=== PATIENT | female | born 1940 | race Caucasian/White ===

== ENCOUNTER 2023-10-03 09:22 | Emergency (ER) | payer MEDICARE, SELFPAY ==
[2023-10-03 09:25] VITALS: BP 129/72
--- NOTE | 2023-10-03 11:06 | ED.SKININJ ---
HPI-Injury
General
Chief Complaint: Eye Problems
Source: patient and spouse
Exam Limitations: none
Time Seen by Provider: 10/03/23 09:53
Nursing documentation reviewed up to this point in time: agreed with
Travel History
Have you had any contact with someone who has COVID-19?: No
Do you have any symptoms of coronavirus? Fever > 100 degrees, chills, cough, shortness of breath, sore throat, loss of taste or smell, muscle aches, or headache?: No
History of Present Illness-Injury
Initial Injury comments:
83 yo female washed her hair with NIX anti lice shampoo last night because her scalp has been so itchy, she got some of the shampoo in her right eye and it stung. Over the next few hours she and rinsed the eye out numerous times and she has
been rubbing the eye. It felt a little better after irrigating and she fell asleep. Woke up this a.m. with significant pain in the eye 'like something is in my eye.'
Past History
Past History
ED Past Medical History: Hypercholesterolemia and Other (PD, Lumbar stenosis, Herniated disc, Parkinson's)
ED Past Surgical History: Orthopedic (Back surgery)
Social History
Tobacco: Non-smoker
Alcohol: Occasional
Personal:
Living: with family
Employment: Retired
Review of Systems
Review of Systems
Allergies reviewed?: Yes
All Other Systems: ROS reviewed and negative except as documented in HPI and ROS
EENT: Reports other (right eye pain and FB sensation)
ABD/GI: Denies nausea
Neurological: Denies headache
Phy Exam
Physical Exam
Physical Exam:
PHYSICAL EXAMINATION:
General: no apparent distress, not acutely ill
Neuro: alert and oriented.
Psychiatric: well kept. interactive and cooperative
Musculoskeletal: Moves with ease
Skin: Warm, pink.
Eye Exam
Eye Exam: PERRL, EOMI, globe normal, visual acuity normal and visual abdullahi normal
Refraction?: No
Cornea Exam: abrasion: Right (moderate sized mid cornea)
Pupil and Lens Exam: round pupil: Bilateral (briskly reacts to light)
Type of Exam: simple and fluorescein
Course
Orders/Labs/Results
Orders:
Orders
10/03/23 09:54
Visual Acuity- Treatment ONCE
10/03/23 11:10
Ciprofloxacin HCl [Ciloxan 0.3% Ophthalmic Solution] See Dose Instructions OPHTH NOW STA
10/03/23 11:45
Fluorescein Sodium [Ful-Lindsay] 2 mg .ROUTE .STK-MED ONE
Tetracaine HCl [Tetracaine 0.5% Ophthalmic Solution] 1 drop .ROUTE .STK-MED ONE
Vital Signs
Initial and Last Documented VS:
Initial Vital Signs
Temp Pulse Resp BP Pulse Ox
98 F 78 16 129/72 98
10/03/23 09:25 10/03/23 09:25 10/03/23 09:25 10/03/23 09:25 10/03/23 09:25
Last Documented Vital Signs
Temp Pulse Resp BP Pulse Ox
98 F 78 16 129/72 98
10/03/23 09:25 10/03/23 09:25 10/03/23 09:25 10/03/23 09:25 10/03/23 09:25
MDM/Problems Addressed
Differential Diagnosis Includes:
chemical conjunctivitis, cornea abrasion
MDM/Problems Addressed:
83 yo female washed her hair with NIX anti lice shampoo last night because her scalp has been so itchy, she got some of the shampoo in her right eye and it stung. Over the next few hours she and rinsed the eye out numerous times and she has
been rubbing the eye. It felt a little better after irrigating and she fell asleep. Woke up this a.m. with significant pain in the eye 'like something is in my eye.'
Moderate sized right mid corneal abrasion. Good relief of pain with topical anesthetic. Correctly reads fingers from 5 feet after topical anesthetic.
She has her own eye doctor she will f/u with in 3 days after the holiday weekend
Cipro eye drops given here
Return symptoms reviewed.
*Critical Care Note
Total Time (30-74mins, 75-104mins- exclusive of procedures): Not Applicable
ED Attending Note
-
Portions of this chart may have been created with voice recognition software.� Occasional wrong word or��sound alike� substitutions may have occurred due to the inherent limitations of voice recognition software.
Discharge Plan
Departure
Patient Disposition: Home (Routine Discharge)
Date of Disposition: 10/03/23
Time of Disposition: 11:05
Patient with high blood pressure during this ER visit?: No
Condition: Good
Discharge Problem:
Corneal abrasion, right
Instructions: Corneal Abrasion (DC), How to Use Eye Drops
Prescriptions:
No Action
atorvastatin 20 MG tablet
20 mg PO HS
amantadine HCl 100 mg capsule
100 mg PO TID
meloxicam 7.5 mg tablet
7.5 mg PO DAILY
docusate sodium [Colace] 100 mg Capsule
100 mg PO DAILY
carbidopa-levodopa 25-100 mg tablet
2 tab PO QID@07,11,,23
carbidopa-levodopa 25-100 mg tablet
1 tab PO BID@0300,1500
Myrbetriq 25 mg tablet extended release 24 hr
25 mg PO DAILY
oxycodone-acetaminophen [Percocet] 5-325 mg tablet
1 tab PO Q4H PRN (Reason: moderate pain)
Patient Comments:
10/30/2022: last filled 10/26/22, 17 tabs for 2 days from [facility]
gabapentin 100 mg capsule
100 mg PO HS
lidocaine 4 % Adhesive Patch,Medicated
1 patch topical DAILY 30 Days Qty: 30 0RF
methylprednisolone 4 mg Tablet
12 mg PO ONCE 1 Days Qty: 3 0RF
Rx Instructions:
Take on 11/02/22
methylprednisolone 8 mg tablet
8 mg PO DAILY 1 Days Qty: 1 0RF
Rx Instructions:
Take on 11/03/22
methylprednisolone 4 mg tablet
4 mg PO DAILY 1 Days Qty: 1 0RF
Rx Instructions:
Take on 11/04/22
Referrals:
Lauro Nunez Eye doctor [Other] - Follow up in 2-3 days
Cmaacho Hwang MD [Family Provider] -
Activity Restrictions/Additional Instructions:
As we discussed, use the Ciprofloxacin eye drops as follows: 1-2 drop in lower eyelid sac right eye 4 times a day for 5 days
See your eye doctor on Thursday.
Return here immediately for loss of vision, worsening eye pain, redness or swelling of skin around the eye, fever, or feeling worse in any way.
Tylenol 1000 mg 3 times a day as needed for pain
Rest in darkened room, sunglasses may help, cold compress 10 minutes off and on may help
Interventions
Interventions:
*Risk Screen - Suicide Last Done: 10/03/23 09:25
*General Assessment Last Done: 10/03/23 09:25
*Neglect/Abuse Screening Last Done: 10/03/23 09:25
ED- Fall Risk Assessment Last Done: 10/03/23 10:09
*ED COVID-19 Vaccine History Last Done: 10/03/23 10:09
*Nursing Disposition Last Done: 10/03/23 11:52
Discharge Date and Time
Discharge Date/Time: 10/03/23 11:53
Print Language: MONGOLIAN
[2023-10-03] MEDS: CILOXAN 0.3% OPHTHALMIC SOLUTION 2 DROP OPHTH (11:52)
== END 2023-10-03 11:53 | disposition home or self-care (01) ==
LOC: EMR 09:22
PROVIDERS: EMERGENCY PHYSICIAN Student in an Organized Health Care Education/Training Program; FAMILY PHYSICIAN Internal Medicine
DX: S05.01XA Injury of conjunctiva and corneal abrasion without foreign body, right eye, initial encounter (principal); X58.XXXA Exposure to other specified factors, initial encounter; E78.00 Pure hypercholesterolemia, unspecified; M48.061 Spinal stenosis, lumbar region without neurogenic claudication; G20.A1 Parkinson's disease without dyskinesia, without mention of fluctuations
CPT/HCPCS: 99282

== ENCOUNTER 2023-12-27 18:46 | Emergency (ER) | payer MEDICARE, SELFPAY ==
[2023-12-27 18:51] VITALS: BP 153/86
--- NOTE | 2023-12-27 20:24 | ED.SKININJ ---
HPI-Injury
General
Chief Complaint: Skin Problem
Source: patient
Exam Limitations: none
Time Seen by Provider: 12/27/23 19:34
Nursing documentation reviewed up to this point in time: agreed with
History of Present Illness-Injury
Is this injury a work related problem?: No
Is pt an associate of [facility]?: No
Initial Injury comments:
Accidentally cut leg on chair. Sutatined lac to right lower leg. Injury occurred approx 3 hours ago. Brought to ED by Daughter for eval.
Past History
Past History
ED Past Medical History: Hypercholesterolemia and Other (PD, Lumbar stenosis, Herniated disc, Parkinson's)
ED Past Surgical History: Orthopedic (Back surgery)
Social History
Tobacco: Non-smoker
Alcohol: Occasional
Personal:
Living: with family
Employment: Retired
Review of Systems
Review of Systems
Allergies reviewed?: Yes
All Other Systems: ROS reviewed and negative except as documented in HPI and ROS
Constitutional: Reports no symptoms
Musculoskeletal: Reports no symptoms
Skin: Reports other (Lacerartion to riht lower leg)
Neurological: Reports no symptoms
Psychiatric: Reports no symptoms
Skin Exam
Laceration
Right Lower Leg:
Length in cm: 3
Orientation: vertical
Type of Laceration: simple
Any active bleeding?: no active bleeding
Normal distal neurovascular exam: Yes
Range of motion: full
Phy Exam
General Physical Exam
General Presentation: well appearing and no apparent distress
General age: appears stated age
General Skin: warm and dry
General Habitus: normal
General Mental: alert
General Hydration: appears well hydrated
Musculoskeletal Exam
Musculoskeletal Exam: full ROM and neuro vasc intact
Skin Exam
Skin Exam: normal color, warm/dry and no rash
Psychiatric Exam
Psychiatric Exam: normal mood/affect
Course
Orders/Labs/Results
Orders:
Orders
12/27/23 20:20
Doxycycline [Vibramycin] 100 mg PO NOW STA
Vital Signs
Initial and Last Documented VS:
Initial Vital Signs
Temp Pulse Resp BP Pulse Ox
98.2 F 76 18 153/86 95
12/27/23 18:51 12/27/23 18:51 12/27/23 18:51 12/27/23 18:51 12/27/23 18:51
Last Documented Vital Signs
Temp Pulse Resp BP Pulse Ox
98.2 F 76 18 153/86 95
12/27/23 18:51 12/27/23 18:51 12/27/23 18:51 12/27/23 18:51 12/27/23 18:51
Procedures
Laceration Closure
Right Lower Leg:
Status of Wound: clean
Preparation: cleaned with saline and cleaned with Betadine
Anesthesia: 1% Lidocaine with epi
Revision/Debridement: routine- no revision and irrigate-direct pressure
Wound exploration: explored to base- no FB and no tendon involvement
Type of Closure: single layer closure
Skin Closure Material: 4-0 prolene
*Critical Care Note
Total Time (30-74mins, 75-104mins- exclusive of procedures): Not Applicable
ED Attending Note
-
Portions of this chart may have been created with voice recognition software.� Occasional wrong word or��sound alike� substitutions may have occurred due to the inherent limitations of voice recognition software.
Discharge Plan
Departure
Patient Disposition: Home (Routine Discharge)
Date of Disposition: 12/27/23
Time of Disposition: 20:21
Patient with high blood pressure during this ER visit?: No
Condition: Good
Covid-19: Not Applicable
Discharge Problem:
Laceration of leg
Instructions: Laceration Repair With Stitches ED, Laceration
Prescriptions:
New
doxycycline hyclate 100 mg capsule
100 mg PO BID Qty: 14 0RF
No Action
atorvastatin 20 MG tablet
20 mg PO HS
amantadine HCl 100 mg capsule
100 mg PO TID
meloxicam 7.5 mg tablet
7.5 mg PO DAILY
docusate sodium [Colace] 100 mg Capsule
100 mg PO DAILY
carbidopa-levodopa 25-100 mg tablet
2 tab PO QID@07,,,
carbidopa-levodopa 25-100 mg tablet
1 tab PO BID@0300,1500
Myrbetriq 25 mg tablet extended release 24 hr
25 mg PO DAILY
oxycodone-acetaminophen [Percocet] 5-325 mg tablet
1 tab PO Q4H PRN (Reason: moderate pain)
Patient Comments:
10/30/2022: last filled 10/26/22, 17 tabs for 2 days from [facility]
gabapentin 100 mg capsule
100 mg PO HS
lidocaine 4 % Adhesive Patch,Medicated
1 patch topical DAILY 30 Days Qty: 30 0RF
methylprednisolone 4 mg Tablet
12 mg PO ONCE 1 Days Qty: 3 0RF
Rx Instructions:
Take on 11/02/22
methylprednisolone 8 mg tablet
8 mg PO DAILY 1 Days Qty: 1 0RF
Rx Instructions:
Take on 11/03/22
methylprednisolone 4 mg tablet
4 mg PO DAILY 1 Days Qty: 1 0RF
Rx Instructions:
Take on 11/04/22
Activity Restrictions/Additional Instructions:
Sutures can be removed in 7-10 days by your family doctor.
Discharge Date and Time
Print Language: TURKMEN
[2023-12-27] MEDS: VIBRAMYCIN 100 MG PO (20:34)
[2023-12-27] MEDS: ADACEL 0.5 ML IM (20:36)
[2023-12-27 20:55] VITALS: BP 144/73
== END 2023-12-27 20:45 | disposition home or self-care (01) ==
LOC: EMR 18:46
PROVIDERS: EMERGENCY PHYSICIAN Emergency Medicine
DX: S81.811A Laceration without foreign body, right lower leg, initial encounter (principal); W07.XXXA Fall from chair, initial encounter; Z23 Encounter for immunization; E78.00 Pure hypercholesterolemia, unspecified; G20.A1 Parkinson's disease without dyskinesia, without mention of fluctuations; M48.061 Spinal stenosis, lumbar region without neurogenic claudication; K21.9 Gastro-esophageal reflux disease without esophagitis; M19.90 Unspecified osteoarthritis, unspecified site; Z96.651 Presence of right artificial knee joint; Z85.3 Personal history of malignant neoplasm of breast
CPT/HCPCS: 99283; 12002; 90471; 90715

== ENCOUNTER 2024-05-19 10:17 | Inpatient (IN) | payer MEDICARE, SELFPAY ==
[2024-05-19] VITALS (10 sets, daily range): BP systolic 96–135; BP diastolic 46–84; BMI 27.9; BMI 26.6
--- NOTE | 2024-05-19 06:29 | ED.GENMED ---
History of Present Illness
<JUANITA Mcdaniels - Last Filed: 05/19/24 13:28>
General
Chief Complaint: Back Pain
Source: patient
Exam Limitations: other (due to 10 pain)
Time Seen by Provider: 05/19/24 05:54
History of Present Illness
History of Present Illness:
This is a 84 y/o female with PMH of Parkinson's and chronic back pain who presents to the ED with CC of worsening back pain x 1 day. She describes the pain starting about a week ago when moving into [facility], but has gotten
much worse over the last day. She admits to some pain relief with Oxycodone over the last week, but came to the ED as it no longer provides her relief. The pain is worsened with movement and R hip flexion. She is extremely restless due to 10/10
shooting pain. Pain radiates across back and down to R leg when moving. Admits to bowel movement just prior to coming to the ED. Denies any recent weight loss/gain, fever/chills, nausea, vomiting, headache, dizziness, bowel or bladder incontinence,
diarrhea, cough, palpitations, chest pain, dyspnea, vision changes, paresthesias and any new skin rash.
Past History
<JUANITA Mcdaniels - Last Filed: 05/19/24 13:28>
Past History
ED Past Medical History: Hypercholesterolemia, Other (PD, Lumbar stenosis, Herniated disc, Parkinson's) and Other
ED Past Surgical History: Orthopedic (Back surgery)
Social History
Tobacco: Non-smoker
Alcohol: None
Drug: None
Personal:
Living: with family
Employment: Retired
Review of Systems
<JUANITA Mcdaniels - Last Filed: 05/19/24 13:28>
Review of Systems
Constitutional: Reports no symptoms
EENT: Reports no symptoms
Respiratory: Reports no symptoms
Cardiac: Reports no symptoms
ABD/GI: Reports no symptoms
: Reports no symptoms
Musculoskeletal: Reports back pain
Skin: Reports no symptoms
Neurological: Reports no symptoms
Endocrine: Reports no symptoms
Hematologic/Lymphatic: Reports no symptoms
Psychiatric: Reports no symptoms
Phy Exam
<Lola Culp [facility] - Last Filed: 05/19/24 13:28>
General Physical Exam
General Presentation: moderate distress
General age: appears stated age
General Skin: warm and dry
General Habitus: normal
General Mental: alert
Eye Exam
Eye Exam: PERRL, EOMI, conjunctiva normal and visual abdullahi normal
Cardiovascular Exam
Cardiovascular Exam: regular rate/rhythm, no edema, no gallop, no JVD and normal peripheral pulses
Pulmonary Exam
Pulmonary Exam: lungs clear, no respiratory distress, no rales, chest non tender, no crackles, no rhonchi, no wheezing and no cough
Gastrointestinal Exam
Gastrointestinal Exam: normal bowel sounds, non tender, soft, no pulsatile mass and non distended
Neurological Exam
Neurological Exam: alert, oriented x3, CN II-XII intact, no sensory deficits and speech normal
Musculoskeletal Exam
Musculoskeletal Exam: back pain, no edema, neuro vasc intact and other
Skin Exam
Skin Exam: normal color, warm/dry and no rash
Course
<Lola Culp [facility] - Last Filed: 05/19/24 13:28>
Orders/Labs/Results
Orders:
Orders
05/19/24 Breakfast
Regular
At Your Request: Full Participation
05/19/24 06:30
CT Chest/abd/pelvis Angio W/wo Urgent
Comment:
Reason For Exam: Nontraumatic severe back pain
Cardiac Monitoring- Treatment ONCE
05/19/24 06:32
Electrocardiogram (*1) Stat
Reason for Study: Abdominal Pain
EKG- Treatment ONCE
05/19/24 06:33
Acetaminophen 1000MG/100Ml [Ofirmev] 1,000 mg in 100 ml IV ONCE
Acetaminophen IV Indication:: ED Narcotic Naive Pt-ONCE
HYDROmorphone [Dilaudid] 0.25 mg IV NOW STA
05/19/24 06:47
CRP [C-Reactive Protein] Urgent
Complete Blood Count/With Diff Urgent
Comprehensive Metabolic Panel Urgent
ESR [Erythrocyte Sed Rate] Urgent
Lipase Urgent
Troponin I Urgent
05/19/24 09:37
Spleen US [US Spleen] Routine
Comment:
Reason For Exam: eval abnormal CT
05/19/24 09:47
Admit/Transfer Patient As Directed
Co-Sign Provider:
Level of Care: Inpatient admission
Assign to:: Medical/Surgical
Physician / Group: Sammy Pereira
Diagnosis: T6 compression fracture inctractable back pain
Reason for Hospitalization: T6 compression fracture intractable back pain
Expected length of stay greater than two midnights?: Yes
ELOS- Estimated Length of Stay in days: 2
I certify the patient meets the requirements for IP care: Yes
PRN Pain Medication Management As Directed
May give lesser potent ordered pain med per pt: Yes
preference::
Protocol:: Medication orders for pain may be administered in a
manner that supports deferring to patient preference
when the pt is:
- Requesting an ordered lesser potent pain medication.
Least to most potent pain medications are defined
as: acetaminophen < NSAID < tramadol < opioids
(morphine, oxycodone, hydromorphone).
- Requesting a lesser dose of the same medication IF
ORDERED.
- Requesting a less intrusive route of administration
if both routes are prescribed by the provider (PO <
IV).
05/19/24 09:54
Code Status As Directed
Resuscitation Status: Full Code
05/19/24 11:29
Famotidine [Pepcid] 20 mg PO BID
HYDROmorphone [Dilaudid] 0.25 mg IV Q4HPRN PRN
Ketorolac [Toradol] 15 mg IV Q6HPRN PRN
05/19/24 11:29
LAWALL EQUIPMENT REQUEST Routine
Equipment request: Back Brace
Activity As Directed
Activity Level: With Assistance
Pneumatic Compression Sleeves As Directed
Type: Knee high
Vital Signs As Directed
Frequency: Per unit guidelines
DX Deep Vein Thrombosis Video Routine
05/19/24 12:00
Acetaminophen [Tylenol] 650 mg PO Q4HWA
pimavanserin 34 mg PO NOON
05/19/24 12:19
Carbidopa/Levodopa [Sinemet 25-100] 2 tablet PO QID@0700,1100,1900,2300
05/19/24 15:00
Carbidopa/Levodopa [Sinemet 25-100] 1 tablet PO BID@0300,1500
05/19/24 16:00
Amantadine [Symmetrel] 100 mg PO TID
Gabapentin [Neurontin] 100 mg PO TID
05/19/24 22:00
Atorvastatin [Lipitor] 20 mg PO HS
05/20/24 06:00
Basic Metabolic Panel IN AM
Complete Blood Count/No Diff IN AM
Magnesium IN AM
05/20/24 08:00
Calcium Carbonate/Vitamin D3 [Oscal 500 + D] 1,000 mg PO DAILY
Docusate Sodium [Colace] 100 mg PO DAILY
Lidocaine [Lidocaine 4% Patch] 1 patch TOPICAL DAILY
Apply Lidocaine patch(s) to:: lower back
Multivitamin [Theragran] 1 tablet PO DAILY
Polyethylene Glycol Powder [Miralax] 17 grams PO DAILY
05/21/24 06:00
Basic Metabolic Panel IN AM
Complete Blood Count/No Diff IN AM
Magnesium IN AM
05/22/24 06:00
Basic Metabolic Panel IN AM
Complete Blood Count/No Diff IN AM
Magnesium IN AM
05/23/24 06:00
Basic Metabolic Panel IN AM
Complete Blood Count/No Diff IN AM
Magnesium IN AM
05/24/24 06:00
Basic Metabolic Panel IN AM
Complete Blood Count/No Diff IN AM
Magnesium IN AM
05/25/24 06:00
Basic Metabolic Panel IN AM
Complete Blood Count/No Diff IN AM
Magnesium IN AM
05/26/24 06:00
Basic Metabolic Panel IN AM
Complete Blood Count/No Diff IN AM
Magnesium IN AM
Abnormal Lab Results
05/19/24
06:47
RBC 3.76 L 10^6/uL
(4.20-5.40)
MCH 33.0 H pg
(27.0-31.0)
MPV 11.4 H fL
(7.4-10.4)
Abs Immat Gran (auto) 0.1 H 10^3/uL
(0-0.05)
Absolute Monos (auto) 0.8 H 10^3/uL
(0.1-0.6)
Immature Gran % 1.4 H %
(0-0.5)
Monocytes % 12.2 H %
(1.7-9.3)
ESR 22 H mm/hour
(0-20)
Glucose 66 L mg/dl
(70-99)
Total Bilirubin 1.6 H mg/dl
(0.2-1.3)
C-Reactive Protein 11.20 H mg/L
(0.0-10.00)
05/19/24 06:47
05/19/24 06:47
Vital Signs
Initial and Last Documented VS:
Initial Vital Signs
Temp Pulse Resp BP Pulse Ox
97.5 F 76 19 103/63 95
05/19/24 04:56 05/19/24 04:56 05/19/24 04:56 05/19/24 04:56 05/19/24 04:56
Last Documented Vital Signs
Temp Pulse Resp BP Pulse Ox
97.7 F 72 18 120/82 100
05/19/24 11:37 05/19/24 11:37 05/19/24 11:37 05/19/24 11:37 05/19/24 11:37
<José Miguel Bailey MD - Last Filed: 05/19/24 07:59>
Orders/Labs/Results
Orders:
Orders
05/19/24 Breakfast
Regular
At Your Request: Full Participation
05/19/24 06:30
CT Chest/abd/pelvis Angio W/wo Urgent
Comment:
Reason For Exam: Nontraumatic severe back pain
Cardiac Monitoring- Treatment ONCE
05/19/24 06:32
Electrocardiogram (*1) Stat
Reason for Study: Abdominal Pain
EKG- Treatment ONCE
05/19/24 06:33
Acetaminophen 1000MG/100Ml [Ofirmev] 1,000 mg in 100 ml IV ONCE
Acetaminophen IV Indication:: ED Narcotic Naive Pt-ONCE
HYDROmorphone [Dilaudid] 0.25 mg IV NOW STA
05/19/24 06:47
CRP [C-Reactive Protein] Urgent
Complete Blood Count/With Diff Urgent
Comprehensive Metabolic Panel Urgent
ESR [Erythrocyte Sed Rate] Urgent
Lipase Urgent
Troponin I Urgent
05/19/24 09:37
Spleen US [US Spleen] Routine
Comment:
Reason For Exam: eval abnormal CT
05/19/24 09:47
Admit/Transfer Patient As Directed
Co-Sign Provider:
Level of Care: Inpatient admission
Assign to:: Medical/Surgical
Physician / Group: Sammy Pereira
Diagnosis: T6 compression fracture inctractable back pain
Reason for Hospitalization: T6 compression fracture intractable back pain
Expected length of stay greater than two midnights?: Yes
ELOS- Estimated Length of Stay in days: 2
I certify the patient meets the requirements for IP care: Yes
PRN Pain Medication Management As Directed
May give lesser potent ordered pain med per pt: Yes
preference::
Protocol:: Medication orders for pain may be administered in a
manner that supports deferring to patient preference
when the pt is:
- Requesting an ordered lesser potent pain medication.
Least to most potent pain medications are defined
as: acetaminophen < NSAID < tramadol < opioids
(morphine, oxycodone, hydromorphone).
- Requesting a lesser dose of the same medication IF
ORDERED.
- Requesting a less intrusive route of administration
if both routes are prescribed by the provider (PO <
IV).
05/19/24 09:54
Code Status As Directed
Resuscitation Status: Full Code
05/19/24 11:29
Famotidine [Pepcid] 20 mg PO BID
HYDROmorphone [Dilaudid] 0.25 mg IV Q4HPRN PRN
Ketorolac [Toradol] 15 mg IV Q6HPRN PRN
05/19/24 11:29
LAWALL EQUIPMENT REQUEST Routine
Equipment request: Back Brace
Activity As Directed
Activity Level: With Assistance
Pneumatic Compression Sleeves As Directed
Type: Knee high
Vital Signs As Directed
Frequency: Per unit guidelines
DX Deep Vein Thrombosis Video Routine
05/19/24 12:00
Acetaminophen [Tylenol] 650 mg PO Q4HWA
pimavanserin 34 mg PO NOON
05/19/24 12:19
Carbidopa/Levodopa [Sinemet 25-100] 2 tablet PO QID@0700,1100,1900,2300
05/19/24 15:00
Carbidopa/Levodopa [Sinemet 25-100] 1 tablet PO BID@0300,1500
05/19/24 16:00
Amantadine [Symmetrel] 100 mg PO TID
Gabapentin [Neurontin] 100 mg PO TID
05/19/24 22:00
Atorvastatin [Lipitor] 20 mg PO HS
05/20/24 06:00
Basic Metabolic Panel IN AM
Complete Blood Count/No Diff IN AM
Magnesium IN AM
05/20/24 08:00
Calcium Carbonate/Vitamin D3 [Oscal 500 + D] 1,000 mg PO DAILY
Docusate Sodium [Colace] 100 mg PO DAILY
Lidocaine [Lidocaine 4% Patch] 1 patch TOPICAL DAILY
Apply Lidocaine patch(s) to:: lower back
Multivitamin [Theragran] 1 tablet PO DAILY
Polyethylene Glycol Powder [Miralax] 17 grams PO DAILY
05/21/24 06:00
Basic Metabolic Panel IN AM
Complete Blood Count/No Diff IN AM
Magnesium IN AM
05/22/24 06:00
Basic Metabolic Panel IN AM
Complete Blood Count/No Diff IN AM
Magnesium IN AM
05/23/24 06:00
Basic Metabolic Panel IN AM
Complete Blood Count/No Diff IN AM
Magnesium IN AM
05/24/24 06:00
Basic Metabolic Panel IN AM
Complete Blood Count/No Diff IN AM
Magnesium IN AM
05/25/24 06:00
Basic Metabolic Panel IN AM
Complete Blood Count/No Diff IN AM
Magnesium IN AM
05/26/24 06:00
Basic Metabolic Panel IN AM
Complete Blood Count/No Diff IN AM
Magnesium IN AM
Abnormal Lab Results
05/19/24
06:47
RBC 3.76 L 10^6/uL
(4.20-5.40)
MCH 33.0 H pg
(27.0-31.0)
MPV 11.4 H fL
(7.4-10.4)
Abs Immat Gran (auto) 0.1 H 10^3/uL
(0-0.05)
Absolute Monos (auto) 0.8 H 10^3/uL
(0.1-0.6)
Immature Gran % 1.4 H %
(0-0.5)
Monocytes % 12.2 H %
(1.7-9.3)
ESR 22 H mm/hour
(0-20)
Glucose 66 L mg/dl
(70-99)
Total Bilirubin 1.6 H mg/dl
(0.2-1.3)
C-Reactive Protein 11.20 H mg/L
(0.0-10.00)
05/19/24 06:47
05/19/24 06:47
Vital Signs
Initial and Last Documented VS:
Initial Vital Signs
Temp Pulse Resp BP Pulse Ox
97.5 F 76 19 103/63 95
05/19/24 04:56 05/19/24 04:56 05/19/24 04:56 05/19/24 04:56 05/19/24 04:56
Last Documented Vital Signs
Temp Pulse Resp BP Pulse Ox
97.7 F 72 18 120/82 100
05/19/24 11:37 05/19/24 11:37 05/19/24 11:37 05/19/24 11:37 05/19/24 11:37
<JUANITA Mcdaniels - Last Filed: 05/19/24 13:28>
MDM/Problems Addressed
Differential Diagnosis Includes:
Pt presented with intractable back pain. She was in 10/10 pain and restless during exam. Pain out of proportion for MSK, therefore vascular imaging was necessary to rule out any emergent vascular conditions. Neuropathic emergent causes have been
ruled out along with vascular and infectious causes. CTA reveals no evidence of aortic dissection or hematoma. WBC, ESR, CRP are consistent with likely cause of pain which is T5 vertebral body compression fracture per x-ray done at [facility]. Pt
requires admission due to severity of pain, which needs to managed prior to discharge.
<JUANITA Mcdaniels - Last Filed: 05/19/24 13:28>
*Radiology
Radiology exam reviewed: radiology read reviewed
*Pulse Oximetry
Patient hypoxic: no
*EKG
Interpreted by ED Provider?: Yes
Interpretation: abnormal
Comparison EKG: no changes
Heart Rate: 72
Rate: normal
Rhythm: sinus
[place]: normal axis
Interval: normal interval
QRS Pattern: poor R-wave progression
Ischemia: no ischemia
*Folded Towel Machine Operator Interpretation
Rate: normal
Interpretation: normal
Heart Rate: 70
Rhythm: sinus
*Critical Care Note
Total Time (30-74mins, 75-104mins- exclusive of procedures): Not Applicable
Data Reviewed
Review of Other/Old Records Reveals: Labs, Records, Radiology Studies and Testing
ED Attending Note
<JUANITA Mcdaniels - Last Filed: 05/19/24 13:28>
-
Portions of this chart may have been created with voice recognition software.� Occasional wrong word or��sound alike� substitutions may have occurred due to the inherent limitations of voice recognition software.
<José Miguel Bailey MD - Last Filed: 05/19/24 07:59>
ED Attending Note
Patient seen and examined by attending physician: Yes
I performed the substantive portion of visit, reviewed & personally made and approve the management plan that is documented in note by myself or SUE.: Yes
ED Attending Note:
84-year-old female complaining of severe back pain. Nontraumatic. Progressive over days. Does have a history of chronic back issues. Pain is positional in nature. No shortness of breath abdominal pain no distal numbness tingling or weakness.
Patient is on chronic pain management for her back issues but does not take it regularly. Pain is severe and intractable.
GENERAL: Alert and oriented. Nontoxic but appears very uncomfortable. Somewhat writhing in pain.
EYE: Orbits normal.
NECK: Supple, no significant adenopathy.
ENT: Pharynx without erythema
CARDIAC: Regular rate and rhythm without any obvious murmurs.
LUNGS: Clear breath sounds,normal
ABDOMEN: Soft, without focal tenderness or distention
NEUROLOGICAL: Alert and oriented , grossly non-focal. Good distal pulses and color
SKIN: Warm and dry, no rash or lesion, no discoloration, skin intact.
MUSCULOSKELETAL: No edema,no deformity.Good color. Points to the mid upper thoracic area no point tenderness. No crepitus. No abrasion.
PSYCH: Normal and appropriate interaction.
Previous labs radiologic testing reviewed. Medical decision making. Nontraumatic severe mid back pain. Questionable T5 fracture based on outpatient x-rays. However patient's behavior clinically or concerning for possible dissection and vascular
issue. Highly doubt cardiac issue. Doubt infectious issue as she has no fever chills or acute neurosurgical symptoms. Nothing to support cauda equina syndrome. Labs CT angio pending. Pain management. Likely will require admission.
Discharge Plan
Departure
Patient Disposition: Admit
Date of Disposition: 05/19/24
Time of Disposition: 09:11
Admit to: Med/Surg
Presentation/result/management discussed w/ accepting MD/DO: Hospitalist
Discharge Problem:
Intractable low back pain, T6 compression fracture
Interventions
Interventions:
*Risk Screen - Suicide Last Done: 05/19/24 04:56
*General Assessment Last Done: 05/19/24 04:56
*Neglect/Abuse Screening Last Done: 05/19/24 04:56
ED- Fall Risk Assessment Last Done: 05/19/24 07:43
*ED COVID-19 Vaccine History Last Done: 05/19/24 04:56
*Nursing Disposition Last Done: 05/19/24 11:30
ED-Musculoskeletal Assessment Last Done: 05/19/24 07:43
Discharge Date and Time
Discharge Date/Time: 05/19/24 11:31
[2024-05-19] MEDS: OFIRMEV 100 IV (06:50)
[2024-05-19] MEDS: DILAUDID 0.25 MG IV ×2 (06:50→16:36)
[2024-05-19 07:11] LABS: % Basophils 0.8 % (0-2); % Eosinophils 5.2 % (0-6); % Immature Granulocytes 1.4 % (0-0.5); % Monocytes 12.2 % (1.7-9.3); % Neutrophils 58.4 % (42.2-75.2); Absolute Basophils 0.1 10^3/uL (0-0.2); Absolute Eosinophils 0.3 10^3/uL (0-0.7); Absolute Immature Granulocytes 0.1 10^3/uL (0-0.05); Absolute Lymphocytes 1.4 10^3/uL (1.2-3.4); Absolute Monocytes 0.8 10^3/uL (0.1-0.6); Absolute Neutrophils 3.8 10^3/uL (1.4-6.5); Hemoglobin 12.4 g/dL (12.0-16.0); Mean Corp Hgb Conc. 33.5 g/dL (33.0-37.0); Mean Corpuscular Volume 98.4 fL (81.0-99.0); Mean Platelet Volume 11.4 fL (7.4-10.4); Nucleated Red Blood Cells % 0 %; Platelet Count 187 10^3/uL (130-400); Red Blood Cell Count 3.76 10^6/uL (4.20-5.40); Red Cell Dist. Width 13.5 % (11.5-14.5); White Blood Cell Count 6.6 10^3/uL (4.8-10.8)
[2024-05-19 07:29] LABS: ALT (SGPT) < 10 U/L (0-35); AST (SGOT) 32 U/L (14-36); Alkaline Phosphatase 118 U/L (38-126); Blood Urea Nitrogen 17 mg/dl (7-17); Calcium 8.9 mg/dl (8.4-10.2); Carbon Dioxide 28 mmol/L (22-30); Chloride 101 mmol/L (98-107); Estimated Creatinine Clearance 62 ml/min; Glucose 66 mg/dl (70-99); Lipase 120 U/L (23-300); Potassium 3.9 mmol/L (3.5-5.1); Sodium 139 mmol/L (135-145); Total Bilirubin 1.6 mg/dl (0.2-1.3); Total Protein 6.6 g/dl (6.3-8.2); eGFR > 60.00
[2024-05-19 07:37] LABS: Troponin I < 0.012 ng/ml
[2024-05-19 08:44] LABS: Erythrocyte Sed Rate 22 mm/hour (0-20)
--- NOTE | 2024-05-19 09:31 | HPS.HSE ---
Family Physician
-
Family Physician: NOT KNOW UNKNOWN - PT DOES
Chief Complaint
-
Back pain
History of Present Illness
84 female Parkinson Hyperlipidemia chronic constipation back pain from [facility] presents with progressive back pain [address] positive for T6 compression fracture indeterminate age. Vital signs otherwise stable. Labs
unremarkable. Pain relief achieved in ER with IV Tylenol and low-dose Dilaudid. Denies history of fall trauma lightheadedness dizziness fevers chills nausea vomiting diarrhea constipation urine incontinence retention.
Medical History
Past Medical History
Past Medical History: Reports Other (As above)
Past Surgical History: Reports Other (as above)
Social History
Tobacco: Non-smoker
Alcohol: Occasional
Drug: None
Living: Assisted Living
Family History
Family History: Not pertinent (reviewed)
Allergies / Home Medications
Allergies reflects when Allergies were last updated in [facility].
Home Medications with original date entered in [facility]
Allergy/Medication List:
Allergies
Allergy/AdvReac Type Severity Reaction Status Date / Time
naproxen Allergy Unknown Verified 05/19/24 04:56
Penicillins Allergy Swelling Verified 12/27/23 18:55
tramadol Allergy Nausea / Verified 12/27/23 18:55
Vomiting
zonisamide Allergy Unknown Verified 05/19/24 04:56
Home Medications
atorvastatin 20 mg tablet 20 mg PO HS High Cholesterol 01/04/13
amantadine HCl 100 mg capsule 100 mg PO TID Neurological Condition 10/30/22
docusate sodium 100 mg capsule (Colace) 100 mg PO DAILY Constipation 10/30/22
gabapentin 100 mg capsule 100 mg PO TID Neurological Condition 10/30/22
acetaminophen 325 mg tablet (Tylenol) 650 mg PO [id number] PRN mild pain 05/19/24
calcium 500 mg (as carbonate)-vit D3 10 mcg (400 unit) chewable tablet (Calcium 500 + D) 2 tab PO DAILY 05/19/24
carbidopa 25 mg-levodopa 100 mg tablet (Sinemet) 1 tab PO BID 05/19/24
carbidopa 25 mg-levodopa 100 mg tablet (Sinemet) 1 tab PO QID 05/19/24
famotidine 20 mg tablet (Pepcid) 20 mg PO DAILYPRN PRN gerd 05/19/24
ibuprofen 600 mg tablet 600 mg PO TID 05/19/24
lidocaine 4 % topical patch 1 patch topical DAILY lowrr back 05/19/24
oxycodone 5 mg tablet 5 mg PO BIDPRN PRN severe pain 05/19/24
pimavanserin 34 mg capsule 34 mg PO NOON 05/19/24
polyethylene glycol 3350 17 gram oral powder packet (Miralax) 17 g PO DAILY 05/19/24
therapeutic multivitamin 1 tab PO DAILY 05/19/24
Review of Systems
-
A 12 point ROS was completed and negative except as noted: Yes
Constitutional: Reports Other (as below)
Physical Exam
Vital Signs
Vital Signs
Temp Pulse Resp BP Pulse Ox
97.5 F 64 19 112/49 95
05/19/24 04:56 05/19/24 09:00 05/19/24 09:00 05/19/24 09:00 05/19/24 07:15
Physical Exam
General: Other (as below)
Laboratory Results
-
05/19/24 06:47
05/19/24 06:47
Laboratory Results
Total Bilirubin 1.6 mg/dl (0.2-1.3) H 05/19/24 06:47
AST 32 U/L (14-36) 05/19/24 06:47
ALT < 10 U/L (0-35) 05/19/24 06:47
Alkaline Phosphatase 118 U/L (38-126) 05/19/24 06:47
Troponin I < 0.012 ng/ml 05/19/24 06:47
Lipase 120 U/L (23-300) 05/19/24 06:47
Impression/Plan
-
ROS
General: Denies fever chills night sweats unexpected weight loss
Neuro: Denies seizure shaking loss of consciousness dizziness vertigo
Psych: denies depression hallucinations confusion manic episodes
Endocrine: Denies polyuria polydipsia polyphagia heat/cold intolerance
HEENT: Denies blindness visual disturbances epistaxis
Pulmonary: denies coughing hemoptysis sneezing sob dyspnea on exertion
Cardiovascular: denies chest pain palpitations leg swelling
Hematology: denies signs symptoms of anemia easy bruising/bleeding
Gastrointestinal: denies nausea vomiting diarrhea constipation hematemesis hematochezia melena
Genito-Urinary: denies retention incontinence dysuria
Musculoskeletal: Reports back pain worse with right hip flexion shooting radiating down to her leg with movement
Dermatology: denies rash laceration bruising
Physical Exam
General: No pallor, cyanosis, or jaundice.
HEENT: Throat clear. PERRLA Normocephalic atraumatic
NECK: Supple. No JVD Carotid Bruits
RESPIRATORY: Lungs clear to auscultation. No crackles wheezes stridor
CVS: S1, S2 normal. RRR. No murmur, rub or gallop.
ABDOMEN: Soft, non-tender. No distension. BS+/normal.
EXTREMITIES: No peripheral cyanosis or edema.
LINK TRAINER MECHANIC: AOx3
IMPRESSION:
84 female Parkinson Hyperlipidemia chronic constipation back pain from [facility] presents with progressive back pain [address] positive for T6 compression fracture indeterminate age. Vital signs otherwise stable. Labs
unremarkable. Pain relief achieved in ER with IV Tylenol and low-dose Dilaudid. Denies history of fall trauma lightheadedness dizziness fevers chills nausea vomiting diarrhea constipation urine incontinence retention.
PLAN:
#Acute on Chronic Back Pain Flare
#Possible T6 compression fracture contributing age indeterminate
#Right sided sciatica
Med surg admit
pain control prn Toradol mod severe pain, prn Dilaudid severe breakthrough pain
Tylenol Q4HWA
PT/OT eval
cont home lidocaine patch, gabapentin
#Parkinson
cont home Sinemet, amantadine
#Chronic Constipation
cont home laxatives
#Abnormal CT imaging Spleen
follow up Spleen US
dvt ppx SCD
gi ppx Home pepcid increased to BID for ppx while on toradol prn
Full Code as per patient
Discussed with patient and patient's daughter Lida
I spent a total of 77 minutes with the patient or on the floor. More than 50% of this time involved counseling and coordination of care.
--- NOTE | 2024-05-19 11:35 | PTCARENOTE ---
Addendum entered by Melinda Stratton RN 05/20/24 07:49:
T6 fx not c6 as previous noted.
Original Note:
Pt recvd to floor via stretcher. Pt in no apparent distress. Pt does have 4/10 pain in her neck. Imaging shows a fracture at her 6th vertebra (c6) She has no C collar on at this time. Pts vitals are stable, Call carvalho within reach and HOB in POC, bed
in lowest position.
[2024-05-19] MEDS: PEPCID 20 MG PO ×2 (12:27→21:33)
[2024-05-19] MEDS: TYLENOL 650 MG PO ×3 (12:27→21:33)
[2024-05-19] MEDS: SINEMET 25-100 2 TABLET PO ×3 (12:27→22:20)
[2024-05-19] MEDS: TORADOL 15 MG IV ×2 (13:40→21:34)
[2024-05-19] MEDS: SINEMET 25-100 1 TABLET PO (16:36)
[2024-05-19] MEDS: SYMMETREL 100 MG PO ×2 (16:36→21:34)
[2024-05-19] MEDS: NEURONTIN 100 MG PO ×2 (16:37→21:34)
[2024-05-19] MEDS: LIPITOR 20 MG PO (21:33)
[2024-05-20] MEDS: TYLENOL PO ×3 (01:08→16:15)
[2024-05-20] MEDS: TYLENOL 650 MG PO ×4 (01:19→21:52)
[2024-05-20] MEDS: SINEMET 25-100 1 TABLET PO ×2 (04:00→16:12)
[2024-05-20] MEDS: TORADOL 15 MG IV (04:37)
[2024-05-20] MEDS: SINEMET 25-100 2 TABLET PO ×4 (06:09→23:23)
--- NOTE | 2024-05-20 06:51 | W.PN.HOSP.TC ---
Today's Communication/Plan
-
Pain control
PT/OT
discharge planning SNF rehab
Assessment / Plan
Assessment / Plan
Physical Exam
General: No pallor, cyanosis, or jaundice.
HEENT: Throat clear. PERRLA Normocephalic atraumatic
NECK: Supple. No JVD Carotid Bruits
RESPIRATORY: Lungs clear to auscultation. No crackles wheezes stridor
CVS: S1, S2 normal. RRR. No murmur, rub or gallop.
ABDOMEN: Soft, non-tender. No distension. BS+/normal.
EXTREMITIES: No peripheral cyanosis or edema.
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
IMPRESSION:
84 female Parkinson Hyperlipidemia chronic constipation back pain from [facility] presents with progressive back pain [address] positive for T6 compression fracture indeterminate age. Vital signs otherwise stable. Labs
unremarkable. Pain relief achieved in ER with IV Tylenol and low-dose Dilaudid. Denies history of fall trauma lightheadedness dizziness fevers chills nausea vomiting diarrhea constipation urine incontinence retention.
PLAN:
#Acute on Chronic Back Pain Flare
#Possible T6 compression fracture contributing age indeterminate
#Right sided sciatica
pain control IV prn pain meds transitioned to PO prn oxycodone
home Ibuprofen scheduled resumed
Tylenol Q4HWA
Back brace applied
PT/OT eval appreciated SNF rehab
cont home lidocaine patch (patches increased from 1 to 2), gabapentin
#Parkinson
cont home Sinemet, amantadine
#Chronic Constipation
cont home laxatives
#Abnormal CT imaging Spleen
Spleen US was performed but unable to visualize spleen.
Recommend repeating CT in 1 month
dvt ppx SCD
gi ppx Pepcid
Full Code as per patient
I spent a total of 50 minutes with the patient or on the floor. More than 50% of this time involved counseling and coordination of care.
Anticipated Discharge: 24 - 48 hours
Subjective/Interval History
-
Date of Service: May 20, 2024
Reports improvement in pain control.
Objective Data
-
Labs:
Laboratory Results
05/20/24
06:11
WBC Pending
Hgb Pending
Hct Pending
Plt Count Pending
Sodium Pending
Potassium Pending
Chloride Pending
Carbon Dioxide Pending
BUN Pending
Creatinine Pending
Glucose Pending
Calcium Pending
Vital Signs:
Vital Signs
Temp Pulse Resp BP Pulse Ox
98.2 F 69 16 122/81 95
05/19/24 22:42 05/19/24 22:42 05/19/24 22:42 05/19/24 22:42 05/19/24 22:42
I&O
05/18/24 05/19/24 05/20/24
06:59 06:59 06:59
Intake Total 960 / 960
Balance 960 / 960
[2024-05-20 07:23] LABS: Hematocrit 36.6 % (37.0-47.0); Hemoglobin 12.3 g/dL (12.0-16.0); Mean Corp Hgb Conc. 33.6 g/dL (33.0-37.0); Mean Corpuscular Hgb 32.8 pg (27.0-31.0); Mean Corpuscular Volume 97.6 fL (81.0-99.0); Mean Platelet Volume 11.4 fL (7.4-10.4); Platelet Count 181 10^3/uL (130-400); Red Blood Cell Count 3.75 10^6/uL (4.20-5.40); Red Cell Dist. Width 13.3 % (11.5-14.5); White Blood Cell Count 5.9 10^3/uL (4.8-10.8)
[2024-05-20 07:35] VITALS: BP 136/80
[2024-05-20 07:47] LABS: Blood Urea Nitrogen 20 mg/dl (7-17); Calcium 8.9 mg/dl (8.4-10.2); Carbon Dioxide 28 mmol/L (22-30); Chloride 101 mmol/L (98-107); Estimated Creatinine Clearance 55 ml/min; Glucose 77 mg/dl (70-99); Magnesium 2.3 mg/dl (1.6-2.3); Phosphorus 3.3 mg/dl (2.5-4.5); Potassium 3.9 mmol/L (3.5-5.1); Sodium 137 mmol/L (135-145); eGFR > 60.00
[2024-05-20] MEDS: MIRALAX 17 GRAMS PO (08:15)
[2024-05-20] MEDS: LIDOCAINE 4% PATCH 1 PATCH TOPICAL (08:15)
[2024-05-20] MEDS: PEPCID 20 MG PO ×2 (08:15→21:49)
[2024-05-20] MEDS: OSCAL 500 + D 1000 MG PO (08:16)
[2024-05-20] MEDS: NEURONTIN 100 MG PO ×3 (08:16→21:50)
[2024-05-20] MEDS: THERAGRAN 1 TABLET PO (08:16)
[2024-05-20] MEDS: COLACE 100 MG PO (08:16)
[2024-05-20] MEDS: SYMMETREL 100 MG PO ×3 (08:16→21:51)
[2024-05-20 08:18] VITALS: BP 136/80
[2024-05-20] MEDS: ROXICODONE 5 MG PO (15:12)
[2024-05-20 15:27] VITALS: BP 103/78
[2024-05-20] MEDS: MOTRIN 600 MG PO ×2 (16:11→23:21)
--- NOTE | 2024-05-20 17:26 | CM ---
Alert awake oriented patient who lives at [facility] .She is assisted in all activities of daily living.She uses a walker.Offered VN she declined.Pt uses a back brace. Will need PT OT for dc planning.
walker brace
Never had VN/[facility] SNF
Pharmacy [place] [facility]
PCP Dr Hwang
PLAN will need PT OT for dc plan
[2024-05-20] MEDS: LIPITOR 20 MG PO (21:50)
[2024-05-20 23:58] VITALS: BP 132/69
[2024-05-21] MEDS: TYLENOL PO (00:47)
[2024-05-21] MEDS: SINEMET 25-100 1 TABLET PO ×2 (03:28→15:19)
[2024-05-21] MEDS: TYLENOL 650 MG PO ×5 (03:29→19:39)
[2024-05-21] MEDS: SINEMET 25-100 2 TABLET PO ×4 (06:01→23:03)
[2024-05-21 06:30] LABS: Hematocrit 36.7 % (37.0-47.0); Hemoglobin 12.3 g/dL (12.0-16.0); Mean Corp Hgb Conc. 33.5 g/dL (33.0-37.0); Mean Corpuscular Hgb 32.8 pg (27.0-31.0); Mean Corpuscular Volume 97.9 fL (81.0-99.0); Mean Platelet Volume 11.1 fL (7.4-10.4); Platelet Count 179 10^3/uL (130-400); Red Blood Cell Count 3.75 10^6/uL (4.20-5.40); Red Cell Dist. Width 13.3 % (11.5-14.5); White Blood Cell Count 5.9 10^3/uL (4.8-10.8)
[2024-05-21 06:56] LABS: Blood Urea Nitrogen 21 mg/dl (7-17); Carbon Dioxide 29 mmol/L (22-30); Chloride 102 mmol/L (98-107); Estimated Creatinine Clearance 55 ml/min; Glucose 86 mg/dl (70-99); Magnesium 2.2 mg/dl (1.6-2.3); Phosphorus 3.6 mg/dl (2.5-4.5); Potassium 4.1 mmol/L (3.5-5.1); Sodium 138 mmol/L (135-145); eGFR > 60.00
--- NOTE | 2024-05-21 07:26 | W.PN.HOSP.TC ---
Today's Communication/Plan
-
Pain control
PT/OT
discharge planning SNF rehab
Assessment / Plan
Assessment / Plan
Physical Exam
General: No pallor, cyanosis, or jaundice.
HEENT: Throat clear. PERRLA Normocephalic atraumatic
NECK: Supple. No JVD Carotid Bruits
RESPIRATORY: Lungs clear to auscultation. No crackles wheezes stridor
CVS: S1, S2 normal. RRR. No murmur, rub or gallop.
ABDOMEN: Soft, non-tender. No distension. BS+/normal.
EXTREMITIES: No peripheral cyanosis or edema.
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
IMPRESSION:
84 female Parkinson Hyperlipidemia chronic constipation back pain from [facility] presents with progressive back pain [address] positive for T6 compression fracture indeterminate age. Vital signs otherwise stable. Labs
unremarkable. Pain relief achieved in ER with IV Tylenol and low-dose Dilaudid. Denies history of fall trauma lightheadedness dizziness fevers chills nausea vomiting diarrhea constipation urine incontinence retention.
PLAN:
#Acute on Chronic Back Pain Flare
#Possible T6 compression fracture contributing age indeterminate
#Right sided sciatica
cont PO prn oxycodone frequency increased to Q4HPRN from Q6HPRN
IV dilaudid severe breakthrough pain
home Ibuprofen scheduled resumed
Tylenol Q4HWA
Back brace applied
PT/OT eval appreciated SNF rehab
cont home lidocaine patch (patches increased from 1 to 2), gabapentin
#Parkinson
cont home Sinemet, amantadine
#Chronic Constipation
cont home laxatives
#Abnormal CT imaging Spleen
Spleen US was performed but unable to visualize spleen.
Recommend repeating CT in 1 month
dvt ppx SCD
gi ppx Pepcid
Full Code as per patient
I spent a total of 45 minutes with the patient or on the floor. More than 50% of this time involved counseling and coordination of care.
Anticipated Discharge: 24 - 48 hours
Subjective/Interval History
-
Date of Service: May 21, 2024
Pain persists, required IV severe breakthrough pain medication once during the day. Tolerating diet. Denies constipation.
Objective Data
-
Labs:
Laboratory Results
05/21/24
05:57
WBC 5.9
Hgb 12.3
Hct 36.7 L
Plt Count 179
Sodium 138
Potassium 4.1
Chloride 102
Carbon Dioxide 29
BUN 21 H
Creatinine 0.7
Glucose 86
Calcium 9.0
Vital Signs:
Vital Signs
Temp Pulse Resp BP Pulse Ox
97.7 F 71 16 132/69 97
05/20/24 23:58 05/20/24 23:58 05/20/24 23:58 05/20/24 23:58 05/20/24 23:58
I&O
05/20/24 05/21/24 05/22/24
06:59 06:59 06:59
Intake Total 960 / 960 480 / 480
Balance 960 / 960 480 / 480
[2024-05-21 07:45] VITALS: BP 128/66
[2024-05-21] MEDS: SYMMETREL 100 MG PO ×3 (08:16→21:01)
[2024-05-21] MEDS: PEPCID 20 MG PO ×2 (08:16→19:39)
[2024-05-21] MEDS: MIRALAX 17 GRAMS PO (08:16)
[2024-05-21] MEDS: LIDOCAINE 4% PATCH 2 PATCH TOPICAL (08:16)
[2024-05-21] MEDS: OSCAL 500 + D 1000 MG PO (08:17)
[2024-05-21] MEDS: MOTRIN 600 MG PO ×3 (08:17→21:01)
[2024-05-21] MEDS: NEURONTIN 100 MG PO ×3 (08:17→21:01)
[2024-05-21] MEDS: THERAGRAN 1 TABLET PO (08:17)
[2024-05-21] MEDS: COLACE 100 MG PO (08:17)
[2024-05-21] MEDS: ROXICODONE 5 MG PO ×2 (08:57→18:30)
--- NOTE | 2024-05-21 12:32 | CM ---
Met with patient and family at bed side
Explained that PT recommended SNF; patient/family agreeable; 1st Preference for SNF is [facility]; #2 preference is [facility]
Referrals sent via [facility]
Plan: discharge to SNF pending bed availability
[2024-05-21] MEDS: DILAUDID 0.25 MG IV (12:37)
[2024-05-21 15:46] VITALS: BP 125/78
[2024-05-21] MEDS: LIPITOR 20 MG PO (19:40)
[2024-05-21 23:22] VITALS: BP 119/68
[2024-05-22] MEDS: TYLENOL PO (00:50)
[2024-05-22] MEDS: TYLENOL 650 MG PO ×5 (03:05→19:38)
[2024-05-22] MEDS: SINEMET 25-100 1 TABLET PO ×2 (03:05→15:05)
[2024-05-22] MEDS: ROXICODONE 5 MG PO ×3 (05:23→15:07)
[2024-05-22 06:05] LABS: Hematocrit 38.1 % (37.0-47.0); Hemoglobin 12.8 g/dL (12.0-16.0); Mean Corp Hgb Conc. 33.6 g/dL (33.0-37.0); Mean Corpuscular Hgb 32.7 pg (27.0-31.0); Mean Corpuscular Volume 97.4 fL (81.0-99.0); Mean Platelet Volume 11.2 fL (7.4-10.4); Platelet Count 195 10^3/uL (130-400); Red Blood Cell Count 3.91 10^6/uL (4.20-5.40); Red Cell Dist. Width 13.2 % (11.5-14.5)
[2024-05-22] MEDS: SINEMET 25-100 2 TABLET PO ×4 (06:18→23:18)
[2024-05-22 06:29] LABS: Blood Urea Nitrogen 21 mg/dl (7-17); Calcium 9.1 mg/dl (8.4-10.2); Carbon Dioxide 26 mmol/L (22-30); Chloride 101 mmol/L (98-107); Estimated Creatinine Clearance 64 ml/min; Glucose 81 mg/dl (70-99); Magnesium 2.1 mg/dl (1.6-2.3); Phosphorus 3.7 mg/dl (2.5-4.5); Potassium 4.1 mmol/L (3.5-5.1); Sodium 135 mmol/L (135-145); eGFR > 60.00
--- NOTE | 2024-05-22 06:54 | W.PN.HOSP.TC ---
Today's Communication/Plan
-
cont pain control
discharge planning SNF rehab
Assessment / Plan
Assessment / Plan
Physical Exam
General: No pallor, cyanosis, or jaundice.
HEENT: Throat clear. PERRLA Normocephalic atraumatic
NECK: Supple. No JVD Carotid Bruits
RESPIRATORY: Lungs clear to auscultation. No crackles wheezes stridor
CVS: S1, S2 normal. RRR. No murmur, rub or gallop.
ABDOMEN: Soft, non-tender. No distension. BS+/normal.
EXTREMITIES: No peripheral cyanosis or edema.
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
IMPRESSION:
84 female Parkinson Hyperlipidemia chronic constipation back pain from [facility] presents with progressive back pain [address] positive for T6 compression fracture indeterminate age. Vital signs otherwise stable. Labs
unremarkable. Pain relief achieved in ER with IV Tylenol and low-dose Dilaudid. Denies history of fall trauma lightheadedness dizziness fevers chills nausea vomiting diarrhea constipation urine incontinence retention.
PLAN:
#Acute on Chronic Back Pain Flare
#Possible T6 compression fracture contributing age indeterminate
#Right sided sciatica
cont PO prn oxycodone frequency increased to Q4HPRN from Q6HPRN
IV dilaudid severe breakthrough pain
cont home scheduled Ibuprofen
Tylenol Q4HWA
Back brace applied
PT/OT eval appreciated SNF rehab
cont home lidocaine patch (patches increased from 1 to 2), gabapentin
#Parkinson
cont home Sinemet, amantadine
#Chronic Constipation
cont home laxatives
#Abnormal CT imaging Spleen
Spleen US was performed but unable to visualize spleen.
Recommend repeating CT in 1 month
dvt ppx SCD
gi ppx Pepcid
Full Code as per patient
I spent a total of 45 minutes with the patient or on the floor. More than 50% of this time involved counseling and coordination of care.
Anticipated Discharge: Within 24 hours
Subjective/Interval History
-
Date of Service: May 22, 2024
Pain persists, though appears better controlled with current pain regimen- has not required IV pain since yesterday..
Objective Data
-
Labs:
Laboratory Results
05/22/24
05:35
WBC 7.0
Hgb 12.8
Hct 38.1
Plt Count 195
Sodium 135
Potassium 4.1
Chloride 101
Carbon Dioxide 26
BUN 21 H
Creatinine 0.6
Glucose 81
Calcium 9.1
Vital Signs:
Vital Signs
Temp Pulse Resp BP Pulse Ox
97.5 F 68 20 119/68 96
05/21/24 23:36 05/21/24 23:36 05/21/24 23:36 05/21/24 23:22 05/21/24 23:36
I&O
05/20/24 05/21/24 05/22/24
06:59 06:59 06:59
Intake Total 960 / 960 480 / 480
Balance 960 / 960 480 / 480
[2024-05-22] MEDS: MIRALAX 17 GRAMS PO (07:37)
[2024-05-22] MEDS: LIDOCAINE 4% PATCH 2 PATCH TOPICAL (07:37)
[2024-05-22] MEDS: MOTRIN 600 MG PO ×3 (07:37→21:18)
[2024-05-22] MEDS: THERAGRAN 1 TABLET PO (07:38)
[2024-05-22] MEDS: OSCAL 500 + D 1000 MG PO (07:38)
[2024-05-22] MEDS: COLACE 100 MG PO (07:38)
[2024-05-22] MEDS: SYMMETREL 100 MG PO ×3 (07:38→21:18)
[2024-05-22] MEDS: PEPCID 20 MG PO ×2 (07:38→19:39)
[2024-05-22] MEDS: NEURONTIN 100 MG PO ×3 (07:38→21:18)
[2024-05-22 08:05] VITALS: BP 104/72
--- NOTE | 2024-05-22 08:53 | VATNOTE ---
Patient with pink limb alert bracelet on left arm. When asked about it, patient states she has a history of left breast cancer with lymph node removal. Left arm IV d/c'd, and new IV placed in right arm.
[2024-05-22 15:31] VITALS: BP 142/68
[2024-05-22] MEDS: LIPITOR 20 MG PO (19:39)
[2024-05-22 22:46] VITALS: BP 132/70
[2024-05-23] MEDS: TYLENOL PO (01:40)
[2024-05-23] MEDS: TYLENOL 650 MG PO ×5 (03:58→19:44)
[2024-05-23] MEDS: SINEMET 25-100 1 TABLET PO ×2 (03:58→16:45)
[2024-05-23] MEDS: ROXICODONE 5 MG PO ×2 (04:51→09:49)
[2024-05-23] MEDS: SINEMET 25-100 2 TABLET PO ×4 (06:04→22:49)
[2024-05-23 07:35] VITALS: BP 99/67
[2024-05-23] MEDS: LIDOCAINE 4% PATCH 2 PATCH TOPICAL (09:37)
[2024-05-23] MEDS: NEURONTIN 100 MG PO ×3 (09:37→22:49)
[2024-05-23] MEDS: PEPCID 20 MG PO ×2 (09:38→19:44)
[2024-05-23] MEDS: THERAGRAN 1 TABLET PO (09:38)
[2024-05-23] MEDS: SYMMETREL 100 MG PO ×3 (09:38→22:49)
[2024-05-23] MEDS: COLACE 100 MG PO (09:38)
[2024-05-23] MEDS: MOTRIN 600 MG PO ×3 (09:38→22:49)
[2024-05-23] MEDS: MIRALAX PO (09:41)
[2024-05-23] MEDS: OSCAL 500 + D PO (09:55)
--- NOTE | 2024-05-23 11:49 | CM ---
Addendum entered by Katerine Franco 05/23/24 16:30:
CM met with Acacia, her and son. IMM signed and placed on chart. Copy provided to patient.
All are in agreement with transfer to [facility] tomorrow. CM will follow to coordinate transfer.
Addendum entered by Katerine Franco 05/23/24 14:48:
CM called pt's again and left a voicemail for him to call back when he is available.
Original Note:
CM following for discharge to SNF. [facility] is first choice, as pt lives there with her . Bed is available for transfer tomorrow after 1pm. CM contacted [facility] to check bed availability; no beds available today.
CM called pt's to update, however there was no answer and no option to leave a voicemail. Will check with patient for alternate number for .
Plan: Transfer to [facility] tomorrow; transport to be requested.
--- NOTE | 2024-05-23 13:45 | W.PN.HOSP.TC ---
Today's Communication/Plan
-
dc planning to SNF
Assessment / Plan
Assessment / Plan
Assessment:
Acute on Chronic Back Pain Flare
Possible T6 compression fracture contributing age indeterminate
Right sided sciatica
- PT/OT - SNF recommended
- continue back brace
- continue scheduled Tylenol, Motrin
- prn oxycodone - concurrent bowel regimen
- adjunctive Gabapentin and Lidocaine patches
Hx of Parkinson disease
- cont home Sinemet, amantadine
Chronic Constipation
- cont home laxatives
Abnormal CT imaging Spleen
- Spleen US was performed but unable to visualize spleen.
- Recommend repeating CT in 1 month
DVT ppx: SCDs
Code: Full
Anticipated Discharge: Within 24 hours
Subjective/Interval History
-
Date of Service: May 23, 2024
no complaints presently
Objective Data
-
Vital Signs:
Vital Signs
Temp Pulse Resp BP Pulse Ox
97.4 F 74 18 99/67 94
05/23/24 07:35 05/23/24 07:35 05/23/24 07:35 05/23/24 07:35 05/23/24 07:35
I&O
05/22/24 05/23/24 05/24/24
06:59 06:59 06:59
Intake Total 240 / 240 480 / 480
Balance 240 / 240 480 / 480
Physical Exam
-
General: No Apparent Distress
HEENT: Normocephalic and Atraumatic
Respiratory: Negative Wheezes
Cardiac: Regular Rhythm and S1/S2
GI: Soft
Neuro: AO x 3
Hematologic / Lymphatic: No Lymphadenopathy
Psych: Calm
Data Reviewed
-
Total Time Spent with Patient (in minutes): 41
Labs: Labs Reviewed by me
[2024-05-23 15:39] VITALS: BP 119/71
[2024-05-23] MEDS: LIPITOR 20 MG PO (19:44)
[2024-05-23 23:08] VITALS: BP 128/63
[2024-05-24] MEDS: TYLENOL PO ×2 (00:48→05:16)
[2024-05-24] MEDS: ROXICODONE 5 MG PO (01:00)
[2024-05-24] MEDS: SINEMET 25-100 1 TABLET PO (02:09)
[2024-05-24] MEDS: TYLENOL 650 MG PO ×3 (05:41→11:05)
[2024-05-24] MEDS: SINEMET 25-100 2 TABLET PO ×2 (06:03→11:05)
[2024-05-24 08:33] VITALS: BP 122/74
[2024-05-24] MEDS: THERAGRAN 1 TABLET PO (08:56)
[2024-05-24] MEDS: SYMMETREL 100 MG PO (08:56)
[2024-05-24] MEDS: MIRALAX 17 GRAMS PO (08:56)
[2024-05-24] MEDS: NEURONTIN 100 MG PO (08:56)
[2024-05-24] MEDS: COLACE 100 MG PO (08:56)
[2024-05-24] MEDS: LIDOCAINE 4% PATCH 2 PATCH TOPICAL (08:56)
[2024-05-24] MEDS: MOTRIN 600 MG PO (08:57)
[2024-05-24] MEDS: OSCAL 500 + D 1000 MG PO (08:57)
[2024-05-24] MEDS: PEPCID 20 MG PO (08:57)
--- NOTE | 2024-05-24 10:24 | W.PN.HOSP.TC ---
Today's Communication/Plan
-
dc to SNF
Assessment / Plan
Assessment / Plan
Assessment:
Acute on Chronic Back Pain Flare
Possible T6 compression fracture contributing age indeterminate
Right sided sciatica
- PT/OT - SNF recommended
- continue back brace
- continue scheduled Tylenol, Motrin
- prn oxycodone - concurrent bowel regimen
- adjunctive Gabapentin and Lidocaine patches
Hx of Parkinson disease
- cont home Sinemet, amantadine
Chronic Constipation
- cont home laxatives
Abnormal CT imaging Spleen
- Spleen US was performed but unable to visualize spleen.
- Recommend repeating CT in 1 month
DVT ppx: SCDs
Code: Full
More than 30 minutes spent in discharge including
Final examination of the patient
Summarizing hospital stay
Instructions for continuing care to all relevant caregivers
Preparation of discharge records, prescriptions, and referral forms
Total time spent (in minutes):41
Anticipated Discharge: Today
Subjective/Interval History
-
Date of Service: May 24, 2024
no new complaints at present
Objective Data
-
Vital Signs:
Vital Signs
Temp Pulse Resp BP Pulse Ox
97.7 F 70 18 122/74 100
05/24/24 08:33 05/24/24 08:33 05/24/24 08:33 05/24/24 08:33 05/24/24 08:33
I&O
05/23/24 05/24/24 05/25/24
06:59 06:59 06:59
Intake Total 240 / 240 960 / 960
Balance 240 / 240 960 / 960
Physical Exam
-
General: No Apparent Distress
HEENT: Normocephalic and Atraumatic
Respiratory: Negative Wheezes
Cardiac: Regular Rhythm and S1/S2
GI: Soft and Nontender
Musculoskeletal: No Edema
Neuro: AO x 3
Hematologic / Lymphatic: No Lymphadenopathy
Psych: Calm
Data Reviewed
-
Total Time Spent with Patient (in minutes): 41
Labs: Labs Reviewed by me
--- NOTE | 2024-05-24 10:32 | CM ---
Addendum entered by Katerine Franco 05/24/24 12:05:
[facility] Report:[phone]
[facility]
Original Note:
contacted Dr. Schaffer regarding discharge to [facility] today. [facility] w/c van is available to provide transport today at 1PM. Dr. Schaffer aware and agreeable to discharge via w/c van at 1PM.
Plan: Discharge to [facility] today via [facility] w/c van at 1PM.
--- NOTE | 2024-05-24 10:42 | W.DS.TRANS ---
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
-
Discharge Instructions:
Discharge Diagnosis/Procedures acute on chronic back pain and T6 compression
fracture (age indeterminate)
Diet Regular
Activity As tolerated
Bathing Restrictions None
Other Services PT,OT
Instructions:
Stand-Alone Forms:
Changes to Home Medications: No
Discharge Medications:
DC Medications w/original date entered in [employer]
atorvastatin 20 mg tablet 20 mg PO HS High Cholesterol 01/04/13
amantadine HCl 100 mg capsule 100 mg PO TID Neurological Condition 10/30/22
docusate sodium 100 mg capsule (Colace) 100 mg PO DAILY Constipation 10/30/22
gabapentin 100 mg capsule 100 mg PO TID Neurological Condition 10/30/22
calcium 500 mg (as carbonate)-vit D3 10 mcg (400 unit) chewable tablet (Calcium 500 + D) 2 tab PO DAILY 05/19/24
carbidopa 25 mg-levodopa 100 mg tablet (Sinemet) 1 tab PO BID 05/19/24
famotidine 20 mg tablet (Pepcid) 20 mg PO DAILYPRN PRN gerd 05/19/24
ibuprofen 600 mg tablet 600 mg PO TID 05/19/24
pimavanserin 34 mg capsule 34 mg PO NOON 05/19/24
polyethylene glycol 3350 17 gram oral powder packet (Miralax) 17 g PO DAILY 05/19/24
therapeutic multivitamin 1 tab PO DAILY 05/19/24
acetaminophen 325 mg tablet 650 mg (2 x 325 mg) PO Q4HWA #100 tabs 05/24/24
carbidopa 25 mg-levodopa 100 mg tablet 2 tab PO QID@0700,1100,1900,2300 #240 tabs 05/24/24
lidocaine 4 % topical patch 2 patch topical DAILY #60 ea 05/24/24
oxycodone 5 mg tablet 5 mg PO Q4H PRN Pain #10 tabs 05/24/24
Home Medication Changes
Pending Results: No
Total time spent discharging patient (in min): 41
[2024-05-24 12:07] VITALS: BP 120/67
== END 2024-05-24 13:13 | DRG 544 ==
LOC: 4 EAST ACU 10:17
PROVIDERS: ADMITTING PHYSICIAN Internal Medicine; ATTENDING PHYSICIAN Internal Medicine; EMERGENCY PHYSICIAN Emergency Medicine
DX: M48.54XA Collapsed vertebra, not elsewhere classified, thoracic region, initial encounter for fracture (principal); M48.061 Spinal stenosis, lumbar region without neurogenic claudication; K59.09 Other constipation; M54.31 Sciatica, right side; G89.29 Other chronic pain; G20.A1 Parkinson's disease without dyskinesia, without mention of fluctuations; E78.00 Pure hypercholesterolemia, unspecified; Z88.0 Allergy status to penicillin; Z88.5 Allergy status to narcotic agent; Z79.899 Other long term (current) drug therapy
CPT/HCPCS: 71275; 74174; 76705; 80048; 80053; 83690; 83735; 84100; 84484; 85025; 85027; 85652; 86140; 87070; 93005; 96374; 96375; 97162; 97167; 97530; 97535; 99285; Q9967

== ENCOUNTER → 2024-06-02 10:39 | Outpatient (REF) | payer MEDICARE, SELFPAY ==
[2024-06-02 11:29] LABS: Hematocrit 39.8 % (37.0-47.0); Hemoglobin 12.8 g/dL (12.0-16.0); Mean Corp Hgb Conc. 32.2 g/dL (33.0-37.0); Mean Corpuscular Hgb 32.4 pg (27.0-31.0); Mean Corpuscular Volume 100.8 fL (81.0-99.0); Mean Platelet Volume 11.1 fL (7.4-10.4); Platelet Count 225 10^3/uL (130-400); Red Blood Cell Count 3.95 10^6/uL (4.20-5.40); Red Cell Dist. Width 13.9 % (11.5-14.5); White Blood Cell Count 5.4 10^3/uL (4.8-10.8)
[2024-06-02 12:20] LABS: ALT (SGPT) < 10 U/L (0-35); AST (SGOT) 28 U/L (14-36); Albumin 4.1 g/dl (3.5-5.0); Alkaline Phosphatase 131 U/L (38-126); Blood Urea Nitrogen 17 mg/dl (7-17); Calcium 9.3 mg/dl (8.4-10.2); Carbon Dioxide 27 mmol/L (22-30); Chloride 104 mmol/L (98-107); Glucose 80 mg/dl (70-99); HDL Cholesterol 65 mg/dl; LDL Cholesterol, Calculated 50 mg/dl; Magnesium 2.4 mg/dl (1.6-2.3); Potassium 4.4 mmol/L (3.5-5.1); Sodium 140 mmol/L (135-145); Total Bilirubin 1.2 mg/dl (0.2-1.3); Total Cholesterol 127 mg/dl (50-199); Total Protein 6.7 g/dl (6.3-8.2); Triglyceride 63 mg/dl (10-149); Very Low Density Lipoprotein 12 mg/dl (0-30); eGFR > 60.00
[2024-06-02 14:55] LABS: Vitamin D, 25-OH*** 31.8 ng/mL (30-80)
== END ==
LOC: OLABWPC 10:39
PROVIDERS: ATTENDING PHYSICIAN Family Medicine
DX: G20.B1 Parkinson's disease with dyskinesia, without mention of fluctuations (principal); R49.9 Unspecified voice and resonance disorder; M54.9 Dorsalgia, unspecified; E78.5 Hyperlipidemia, unspecified; M62.81 Muscle weakness (generalized); E55.9 Vitamin D deficiency, unspecified
CPT/HCPCS: 36415; 80053; 80061; 82306; 83735; 85027

== ENCOUNTER 2024-06-14 01:52 | Emergency (ER) | payer MEDICARE, SELFPAY ==
[2024-06-14] VITALS (12 sets, daily range): BP systolic 96–145; BP diastolic 50–114; O2SAT 99
--- NOTE | 2024-06-14 08:21 | ED.GENMED ---
History of Present Illness
General
Chief Complaint: Gait Dysfunction
Source: patient and family
Exam Limitations: none
Time Seen by Provider: 06/14/24 08:08
History of Present Illness
History of Present Illness:
84yoF with a history of Parkinson's disease and chronic back pain presenting from [place] via EMS for evaluation after her legs gave out while walking. She was recently admitted from 05/19/24-05/24/24 for acute on chronic back pain and a T6 compression
fracture. She was discharged to the shelter section of [place] where she received aggressive PT. She went back to the assisted living section on Thursday. She was walking with nursing staff in the middle of the night when her left leg gave
out on her. Staff was able to catch her so she did not fall. alf staff was reportedly concerned that she has a UTI so sent her to the ED. Patient reports having some dysuria a few days ago but none since. Her legs have been giving out
of her more often recently. She typically ambulates with a walker and uses knee braces for support.
Past History
Past History
ED Past Medical History: Hypercholesterolemia, Other (PD, Lumbar stenosis, Herniated disc, Parkinson's) and Other
ED Past Surgical History: Orthopedic (Back surgery)
Social History
Tobacco: Non-smoker
Alcohol: None
Drug: None
Personal:
Living: with family
Employment: Retired
Phy Exam
General Physical Exam
General Presentation: well appearing and no apparent distress
General age: appears stated age
General Skin: warm and dry
General Habitus: normal
General Mental: alert
ENT Exam
ENT Exam: normocephalic
Cardiovascular Exam
Cardiovascular Exam: regular rate/rhythm
Pulmonary Exam
Pulmonary Exam: lungs clear, no respiratory distress, chest non tender and no crackles
Gastrointestinal Exam
Gastrointestinal Exam: non tender, soft and non distended
Neurological Exam
Neurological Exam: alert
Maruicio Coma Scale
Eye Opening: Spontaneous
Verbal Response: Oriented
Motor Response: Obeys Commands
GCS Total Score: 15
Skin Exam
Skin Exam: normal color and warm/dry
Psychiatric Exam
Psychiatric Exam: normal mood/affect
Course
Orders/Labs/Results
Orders:
Orders
06/14/24 08:20
Pt Eval And Treat Urgent
Activity Level: Out of Bed- Ad Carmen
06/14/24 08:45
Complete Blood Count/With Diff Urgent
Comprehensive Metabolic Panel Urgent
06/14/24 08:48
Urinalysis Reflex To Culture Urgent
Date Specimen was Collected: 06/14/24
Time Specimen was Collected: 08:46
06/14/24 08:49
Carbidopa/Levodopa [Sinemet 25-100] 1 tablet PO NOW STA
06/14/24 09:55
Case Management Consult ONCE
Case Management Consult: Discharge Planning
06/14/24 12:49
Carbidopa/Levodopa [Sinemet 25-100] 1 tablet PO NOW STA
Abnormal Lab Results
06/14/24
08:45
MCH 32.8 H pg
(27.0-31.0)
MPV 10.8 H fL
(7.4-10.4)
Absolute Monos (auto) 0.7 H 10^3/uL
(0.1-0.6)
Monocytes % 11.1 H %
(1.7-9.3)
Alkaline Phosphatase 141 H U/L
(38-126)
Total Protein 8.5 H g/dl
(6.3-8.2)
Albumin 5.2 H g/dl
(3.5-5.0)
06/14/24 08:45
06/14/24 08:45
Vital Signs
Initial and Last Documented VS:
Initial Vital Signs
Temp Pulse Resp BP Pulse Ox
97.8 F 76 24 136/74 98
06/14/24 01:59 06/14/24 01:59 06/14/24 01:59 06/14/24 01:59 06/14/24 01:59
Last Documented Vital Signs
Temp Pulse Resp BP Pulse Ox
97.8 F 73 18 122/62 96
06/14/24 01:59 06/14/24 11:40 06/14/24 11:40 06/14/24 15:14 06/14/24 15:15
MDM/Problems Addressed
Differential Diagnosis Includes:
84yoF here after she almost fell today. Recently discharged from short term rehab and currently at assisted living. Legs gave out while walking today but she did not fall. There was some concern for a UTI. VSS. She is well appearing in no distress.
Differential diagnosis includes but is not limited to: gait dysfunction 2/2 Parkinson's, failure to thrive, UTI
Initial ED plan: Check CBC, CMP, and UA. Will consult PT.
*Critical Care Note
Total Time (30-74mins, 75-104mins- exclusive of procedures): Not Applicable
Update Note
Update Note:
Labs overall unremarkable. UA bland without signs of infection. Patient was evaluated by physical therapy who recommended short-term rehab. Case management consulted and patient was accepted at [facility]. Patient to be transported directly
to the rehab facility after discharge.
ED Attending Note
-
Portions of this chart may have been created with voice recognition software.� Occasional wrong word or��sound alike� substitutions may have occurred due to the inherent limitations of voice recognition software.
Discharge Plan
Departure
Patient Disposition: Home (Routine Discharge)
Date of Disposition: 06/14/24
Time of Disposition: 13:34
Patient with high blood pressure during this ER visit?: No
Discharge Problem:
Ambulatory dysfunction
Prescriptions:
No Action
atorvastatin 20 MG tablet
20 mg PO HS
amantadine HCl 100 mg capsule
100 mg PO TID
docusate sodium [Colace] 100 mg Capsule
100 mg PO DAILY
gabapentin 100 mg capsule
100 mg PO TID
polyethylene glycol 3350 [Miralax] 17 gram Powder In Packet
17 g PO DAILY
ibuprofen 600 mg Tablet
600 mg PO TID
famotidine [Pepcid] 20 mg Tablet
20 mg PO DAILYPRN PRN (Reason: gerd)
carbidopa-levodopa [Sinemet] 25-100 mg Tablet
1 tab PO BID
pimavanserin 34 mg Capsule
34 mg PO NOON
therapeutic multivitamin Tablet
1 tab PO DAILY
calcium carbonate-vitamin D3 [Calcium 500 + D] 500 mg-10 mcg (400 unit) Tablet,Chewable
2 tab PO DAILY
acetaminophen 325 mg Tablet
650 mg PO Q4HWA Qty: 100 0RF
lidocaine 4 % Adhesive Patch,Medicated
2 patch topical DAILY Qty: 60 0RF
carbidopa-levodopa 25-100 mg Tablet
2 tab PO QID@0700,1100,1900,2300 Qty: 240 0RF
oxycodone 5 mg tablet
5 mg PO Q4H PRN (Reason: Pain) Qty: 10 0RF
Referrals:
UNKNOWN - PT DOES,NOT KNOW [Family Provider] -
Activity Restrictions/Additional Instructions:
You are being discharged to a rehab facility for physical therapy.
Please follow-up with your family doctor. Return to the ER with any worsening symptoms.
Interventions
Interventions:
*Risk Screen - Suicide Last Done: 06/14/24 01:53
*General Assessment Last Done: 06/14/24 08:20
*Neglect/Abuse Screening Last Done: 06/14/24 01:53
*ED COVID-19 Vaccine History Last Done: 06/14/24 08:20
ED- Neurological Assessment Last Done: 06/14/24 08:20
ED-Musculoskeletal Assessment Last Done: 06/14/24 08:20
Discharge Date and Time
Print Language: COLOMBIAN
[2024-06-14 08:58] LABS: Urine Albumin Negative (Neg - Trace); Urine Bilirubin Negative (Negative); Urine Character Clear (Clear); Urine Color Yellow; Urine Glucose Negative (Negative); Urine Ketone Negative (Negative); Urine Leukocyte Negative (Negative); Urine Nitrite Negative (Negative); Urine Occult Blood Negative (Negative); Urine Specific Gravity 1.015 (<1.030); Urine Urobilinogen Negative (Neg - 1+); Urine pH 6.5 (5.0-9.0)
[2024-06-14 09:02] LABS: % Basophils 0.7 % (0-2); % Immature Granulocytes 0.3 % (0-0.5); % Lymphocytes 23.2 % (20.5-51.1); % Monocytes 11.1 % (1.7-9.3); % Neutrophils 62.7 % (42.2-75.2); Absolute Eosinophils 0.1 10^3/uL (0-0.7); Absolute Lymphocytes 1.4 10^3/uL (1.2-3.4); Absolute Monocytes 0.7 10^3/uL (0.1-0.6); Absolute Neutrophils 3.7 10^3/uL (1.4-6.5); Hemoglobin 14.3 g/dL (12.0-16.0); Mean Corp Hgb Conc. 33.3 g/dL (33.0-37.0); Mean Corpuscular Hgb 32.8 pg (27.0-31.0); Mean Corpuscular Volume 98.6 fL (81.0-99.0); Mean Platelet Volume 10.8 fL (7.4-10.4); Nucleated Red Blood Cells % 0 %; Platelet Count 212 10^3/uL (130-400); Red Blood Cell Count 4.36 10^6/uL (4.20-5.40); Red Cell Dist. Width 14.1 % (11.5-14.5); White Blood Cell Count 5.9 10^3/uL (4.8-10.8)
[2024-06-14] MEDS: SINEMET 25-100 1 TABLET PO ×2 (09:09→14:03)
[2024-06-14 09:12] LABS: ALT (SGPT) 19 U/L (0-35); AST (SGOT) 30 U/L (14-36); Albumin 5.2 g/dl (3.5-5.0); Alkaline Phosphatase 141 U/L (38-126); Blood Urea Nitrogen 10 mg/dl (7-17); Calcium 9.9 mg/dl (8.4-10.2); Carbon Dioxide 27 mmol/L (22-30); Chloride 103 mmol/L (98-107); Glucose 93 mg/dl (70-99); Potassium 4.1 mmol/L (3.5-5.1); Sodium 142 mmol/L (135-145); Total Bilirubin 1.2 mg/dl (0.2-1.3); Total Protein 8.5 g/dl (6.3-8.2); eGFR > 60.00
--- NOTE | 2024-06-14 10:20 | CM ---
Addendum entered by Asha Callahan RN 06/14/24 13:39:
Family is agreeable to [facility]:
[facility]
Report
[phone]

Addendum entered by Asha Callahan RN 06/14/24 10:40:
CM spoke with daughter who stated that she would prefer [facility] or [facility]. There are no beds available today.
Mariam Salazar is reviewing clinical. Daughter is reviewing choices and will call CM back.
Original Note:
CM reviewed medical records. Patient has been recommended for SNF. CM sent referral via [facility] to [facility].
== END 2024-06-14 16:26 | disposition home or self-care (01) ==
LOC: EMR 01:52
PROVIDERS: Physician Assistant; EMERGENCY PHYSICIAN Emergency Medicine
DX: R26.2 Difficulty in walking, not elsewhere classified (principal); G89.29 Other chronic pain; M54.9 Dorsalgia, unspecified; G20.A1 Parkinson's disease without dyskinesia, without mention of fluctuations
CPT/HCPCS: 99283; 80053; 81003; 85025

== ENCOUNTER 2024-07-29 16:38 | Observation (INO) | payer MEDICARE, SELFPAY ==
[2024-07-29] VITALS (12 sets, daily range): BP systolic 96–143; BP diastolic 45–69; BMI 26.6
--- NOTE | 2024-07-29 11:57 | ED.GENMED ---
History of Present Illness
General
Chief Complaint: Weakness
Time Seen by Provider: 07/29/24 11:51
History of Present Illness
History of Present Illness:
84-year-old female with history of Parkinson's presents from [facility] due to severe weakness. States she was unable to stand up today and slid herself to the ground landing on her buttocks. She is complaining of right gluteal pain at
this time. She is noted to be hypotensive for [place] however normotensive en route via EMS. She currently denies any chest pain or difficulty breathing. No recent fevers or chills.
Past History
Past History
ED Past Medical History: Hypercholesterolemia, Other (PD, Lumbar stenosis, Herniated disc, Parkinson's) and Other
ED Past Surgical History: Orthopedic (Back surgery)
Social History
Tobacco: Non-smoker
Alcohol: None
Drug: None
Personal:
Living: with family
Employment: Retired
Review of Systems
Review of Systems
Allergies reviewed?: Yes
All Other Systems: ROS reviewed and negative except as documented in HPI and ROS
Phy Exam
Physical Exam
Physical Exam:
GEN: Well appearing, NAD, WDWN
HEENT: Oral mucosa moist, no scleral icterus
Cardiac: Regular rate and rhythm, systolic murmur
Lung: No respiratory distress, no tachypnea, lungs clear to auscultation bilateral
MSK: No gross deformity or injuries, pelvis is free of tenderness, no crepitus, no shortening or external rotation
Skin: Good color, no pallor or jaundice, no rashes
Neuro: AO x3, moves all extremities freely
Psych: Calm, cooperative
Course
Orders/Labs/Results
Orders:
Orders
07/29/24 11:42
Electrocardiogram (*1) Urgent
Reason for Study: Fatigue / Weakness
EKG- Treatment ONCE
07/29/24 11:57
CR Hip - RT w/wo Pel 2-3 Vw* Urgent
Comment:
Reason For Exam: fall
Include a pelvis x-ray?: Yes
07/29/24 11:59
Straight cath- Treatment ONCE
07/29/24 12:04
COVID-19 Antigen Urgent
Source: Nasal Swab
Complete Blood Count/With Diff Urgent
Comprehensive Metabolic Panel Urgent
Urinalysis Reflex To Culture Urgent
Date Specimen was Collected: 07/29/24
Time Specimen was Collected: 11:41
Urine Microscopic Reflex Cult Urgent
Influenza A+B Rapid Molecular Urgent
MICHAEL Source: Nasal Swab
Specimen Description:
07/29/24 13:09
0.9% Sodium Chloride 1000 ml [Nss] 1,000 ml IV BOLUS
07/29/24 13:18
0.9% Sodium Chloride 1000 ml [Nss] 1,000 ml IV BOLUS
Abnormal Lab Results
07/29/24
12:04
RBC 3.55 L 10^6/uL
(4.20-5.40)
Hgb 11.4 L g/dL
(12.0-16.0)
Hct 34.5 L %
(37.0-47.0)
MCH 32.1 H pg
(27.0-31.0)
RDW 15.1 H %
(11.5-14.5)
MPV 11.0 H fL
(7.4-10.4)
Abs Immat Gran (auto) 0.1 H 10^3/uL
(0-0.05)
Absolute Neuts (auto) 8.1 H 10^3/uL
(1.4-6.5)
Immature Gran % 0.8 H %
(0-0.5)
Neutrophils % 77.7 H %
(42.2-75.2)
Lymphocytes % 12.5 L %
(20.5-51.1)
BUN 31 H mg/dl
(7-17)
Creatinine 1.7 H mg/dL
(0.6-1.0)
Total Protein 6.0 L g/dl
(6.3-8.2)
Urine Ketones 1+ A
(Negative)
Ur Occult Blood Reflex 2+ A
(Negative)
Urine Bilirubin 1+ A
(Negative)
Urine Bacteria (Reflex) Few A
(Negative)
Urine Albumin (Reflex) 2+ A
(Neg - Trace)
07/29/24 12:04
07/29/24 12:04
Vital Signs
Initial and Last Documented VS:
Initial Vital Signs
Pulse Resp
78 21
07/29/24 11:46 07/29/24 11:46
Last Documented Vital Signs
Temp Pulse Resp BP Pulse Ox
97.8 F 75 16 109/45 94
07/29/24 11:53 07/29/24 13:30 07/29/24 13:30 07/29/24 13:00 07/29/24 12:16
MDM/Problems Addressed
MDM/Problems Addressed:
Will admit for MINERVA with significant weakness, patient having increased ambulatory dysfunction, may require jail for rehab.
*Critical Care Note
Total Time (30-74mins, 75-104mins- exclusive of procedures): Not Applicable
ED Attending Note
-
Portions of this chart may have been created with voice recognition software.� Occasional wrong word or��sound alike� substitutions may have occurred due to the inherent limitations of voice recognition software.
Discharge Plan
Departure
Patient Disposition: Admit
Date of Disposition: 07/29/24
Time of Disposition: 14:56
Admit to: Med/Surg
Presentation/result/management discussed w/ accepting MD/DO: Hospitalist
Discharge Problem:
Acute kidney injury, Ambulatory dysfunction
Prescriptions:
No Action
atorvastatin 20 MG tablet
20 mg PO HS
amantadine HCl 100 mg capsule
100 mg PO TID
docusate sodium [Colace] 100 mg Capsule
100 mg PO DAILY
gabapentin 100 mg capsule
100 mg PO TID
polyethylene glycol 3350 [Miralax] 17 gram Powder In Packet
17 g PO DAILY
ibuprofen 600 mg Tablet
600 mg PO TID
famotidine [Pepcid] 20 mg Tablet
20 mg PO DAILYPRN PRN (Reason: gerd)
carbidopa-levodopa [Sinemet] 25-100 mg Tablet
1 tab PO BID
pimavanserin 34 mg Capsule
34 mg PO NOON
therapeutic multivitamin Tablet
1 tab PO DAILY
calcium carbonate-vitamin D3 [Calcium 500 + D] 500 mg-10 mcg (400 unit) Tablet,Chewable
2 tab PO DAILY
acetaminophen 325 mg Tablet
650 mg PO Q4HWA Qty: 100 0RF
lidocaine 4 % Adhesive Patch,Medicated
2 patch topical DAILY Qty: 60 0RF
carbidopa-levodopa 25-100 mg Tablet
2 tab PO QID@0700,1100,1900,2300 Qty: 240 0RF
oxycodone 5 mg tablet
5 mg PO Q4H PRN (Reason: Pain) Qty: 10 0RF
Referrals:
Anjel Pathak MD [Family Provider] -
Interventions
Interventions:
*Risk Screen - Suicide Last Done: 07/29/24 11:53
*General Assessment Last Done: 07/29/24 11:53
*Neglect/Abuse Screening Last Done: 07/29/24 11:53
*ED COVID-19 Vaccine History Last Done: 07/29/24 12:14
ED- Cardiac Assessment Last Done: 07/29/24 12:16
ED- Neurological Assessment Last Done: 07/29/24 12:16
ED- Pulmonary Assessment Last Done: 07/29/24 12:16
Discharge Date and Time
Print Language: JAMAICAN
[2024-07-29 12:16] LABS: % Basophils 0.6 % (0-2); % Eosinophils 2.2 % (0-6); % Immature Granulocytes 0.8 % (0-0.5); % Lymphocytes 12.5 % (20.5-51.1); % Monocytes 6.2 % (1.7-9.3); % Neutrophils 77.7 % (42.2-75.2); Absolute Basophils 0.1 10^3/uL (0-0.2); Absolute Eosinophils 0.2 10^3/uL (0-0.7); Absolute Immature Granulocytes 0.1 10^3/uL (0-0.05); Absolute Lymphocytes 1.3 10^3/uL (1.2-3.4); Absolute Monocytes 0.6 10^3/uL (0.1-0.6); Absolute Neutrophils 8.1 10^3/uL (1.4-6.5); Hematocrit 34.5 % (37.0-47.0); Hemoglobin 11.4 g/dL (12.0-16.0); Mean Corpuscular Hgb 32.1 pg (27.0-31.0); Mean Corpuscular Volume 97.2 fL (81.0-99.0); Nucleated Red Blood Cells % 0 %; Platelet Count 187 10^3/uL (130-400); Red Blood Cell Count 3.55 10^6/uL (4.20-5.40); Red Cell Dist. Width 15.1 % (11.5-14.5); White Blood Cell Count 10.4 10^3/uL (4.8-10.8)
[2024-07-29 12:18] LABS: Urine Albumin 2+ (Neg - Trace); Urine Bilirubin 1+ (Negative); Urine Character Clear (Clear); Urine Color Yellow; Urine Glucose Negative (Negative); Urine Ketone 1+ (Negative); Urine Leukocyte Negative (Negative); Urine Nitrite Negative (Negative); Urine Occult Blood 2+ (Negative); Urine Specific Gravity 1.015 (<1.030); Urine Urobilinogen Negative (Neg - 1+)
[2024-07-29 12:28] LABS: ALT (SGPT) < 10 U/L (0-35); AST (SGOT) 21 U/L (14-36); Albumin 3.7 g/dl (3.5-5.0); Alkaline Phosphatase 82 U/L (38-126); Blood Urea Nitrogen 31 mg/dl (7-17); Calcium 9.8 mg/dl (8.4-10.2); Carbon Dioxide 28 mmol/L (22-30); Chloride 101 mmol/L (98-107); Estimated Creatinine Clearance 22 ml/min; Glucose 99 mg/dl (70-99); Potassium 3.6 mmol/L (3.5-5.1); Sodium 138 mmol/L (135-145); Total Bilirubin 1.2 mg/dl (0.2-1.3); eGFR 29.21
[2024-07-29 12:31] LABS: COVID-19 Antigen Negative (Negative)
[2024-07-29 12:44] LABS: Urine Squamous Cell 0-2 /LPF (Few)
[2024-07-29 12:45] LABS: Urine Bacteria Few (Negative); Urine Red Blood Cell 0-2 /HPF (0-2)
[2024-07-29] MEDS: NSS 1000 IV (13:31)
--- NOTE | 2024-07-29 15:38 | HPS.HSE ---
Family Physician
-
Family Physician: Anjel Pathak
Chief Complaint
-
Mechanical fall, right buttocks pain, history of Parkinson's
History of Present Illness
84-year-old female from [facility] assisted, where she lives with her [place] since May 12, 2024. Today she states she was standing at the kitchen sink she had 1 hand on her walker 1 hand on the sink but started to have weakness
in her legs so she slid herself down to the ground landing on her buttocks is complaining of right gluteal pain. She believes she tilted her head back possibly hit it on the plastic trash can. She denies loss of consciousness she did have a
headache when she came to the ER but was relieved with Tylenol. Her found her in the kitchen on the floor and called EMS. She was noted to be hypotensive at [place] however normotensive en route via EMS, But is hypotensive 96 over 50s
during my exam in the ER. She reports 4 weeks ago her neurologist from [place] decreased her carbidopa levodopa by 1 tablet then 2 weeks ago changed her carbidopa levodopa to a slow release 3 times daily. She has been doing well on the slow
release 3 times daily medication with no issues swallowing, walking or falling. Review of her medications show the patient has been taking Motrin 600 mg 3 times daily scheduled since approximately April 2024, she was on prior Mobic 7.5 mg.
She denies fever, chills, neck pain, chest pain, palpitations, cough, shortness of breath, abdominal pain, nausea, vomiting, diarrhea, urinary symptoms. She has past medical history of Parkinson's disease with chronic ambulatory dysfunction,
Hallucinations from Parkinson's disease, chronic back pain, spinal stimulator 2023 lumbar stenosis, herniated disks, T6 compression fracture age-indeterminate, right sided sciatica HLD, chronic constipation, GERD, stress incontinence urine,. She
was noted to have MINERVA on labs while in the ER.
Medical History
Past Medical History
Past Medical History: Reports Other
Additional Past Medical History:
Parkinson's disease with chronic ambulatory dysfunction
Hallucinations from Parkinson's disease
chronic back pain
spinal stimulator 2023 lumbar stenosis
herniated disks
T6 compression fracture age-indeterminate
right sided sciatica
HLD
chronic constipation
GERD
stress incontinence urine
Past Surgical History: Reports Other
Additional Past Surgical History:
Left breast lumpectomy 12/2001 secondary cancer
Right knee meniscus repair March 2011
Cholecystectomy
Tubal ligation September 1975
Right TKR 01/22/2013
Lumbar laminectomy 11/27/2013
Spinal stimulator 2023
Social History
Tobacco: Non-smoker
Alcohol: None
Drug: None
Personal:
Living: With Family (With at [facility])
Employment: Retired
Family History
Family History: Unable to Obtain
Allergies / Home Medications
Allergies reflects when Allergies were last updated in teextee.
Home Medications with original date entered in teextee
Allergy/Medication List:
Allergies
Allergy/AdvReac Type Severity Reaction Status Date / Time
naproxen Allergy Unknown Verified 06/14/24 01:56
Penicillins Allergy Swelling Verified 06/14/24 01:56
tramadol Allergy Nausea / Verified 06/14/24 01:56
Vomiting
zonisamide Allergy Unknown Verified 06/14/24 01:56
Home Medications
atorvastatin 20 mg tablet 20 mg PO HS High Cholesterol 01/04/13
amantadine HCl 100 mg capsule 100 mg PO TID Neurological Condition 10/30/22
docusate sodium 100 mg capsule (Colace) 100 mg PO DAILY Constipation 10/30/22
gabapentin 100 mg capsule 100 mg PO TID Neurological Condition 10/30/22
calcium 500 mg (as carbonate)-vit D3 10 mcg (400 unit) chewable tablet (Calcium 500 + D) 1 tab PO BID 05/19/24
famotidine 20 mg tablet (Pepcid) 20 mg PO DAILYPRN PRN gerd 05/19/24
ibuprofen 600 mg tablet 600 mg PO TID 05/19/24
pimavanserin 34 mg capsule 34 mg PO NOON 05/19/24
polyethylene glycol 3350 17 gram oral powder packet (Miralax) 17 g PO DAILY 05/19/24
acetaminophen 325 mg tablet 650 mg PO Q4HPRN PRN mild pain 07/29/24
carbidopa ER 36.25 mg-levodopa 145 mg capsule,extended release (Rytary) 1 cap PO TID 07/29/24
hydrocortisone 1 % topical cream (Preparation H Hydrocortisone) 1 applic [place] BIDPRN PRN hemorrhoids 07/29/24
lidocaine 4 % topical cream 1 applic topical Q4HPRN PRN mild pain 07/29/24
magnesium hydroxide 400 mg/5 mL oral suspension (Milk of Magnesia) 2,400 mg PO DAILYPRN PRN constipation 07/29/24
oxycodone 5 mg tablet 5 mg PO Q4HPRN PRN mild Pain 07/29/24
sennosides 8.6 mg tablet (senna) 8.6 mg PO DAILYPRN PRN constipation 07/29/24
therapeutic multivitamin 1 tab PO DAILY 07/29/24
Review of Systems
-
History Source: Patient and Family (Son at bedside)
A 12 point ROS was completed and negative except as noted: Yes
Constitutional: Denies Fever or Chills
EENT: Denies Sore Throat or Runny Nose
Respiratory: Denies Cough or Trouble Breathing
Cardiac: Denies Chest Pain, Diaphoresis, Palpitations or Syncope
Abdomen/GI: Denies Abdominal Pain, Nausea, Vomiting, Diarrhea, Constipated, Bloody Stools or Black Stools
: Denies Dysuria, Frequency, Flank Pain, Incontinence, Difficulty Voiding or Urgency
Musculoskeletal: Reports Edema (Bilateral lower extremities +1); Denies Joint Pain
Skin: Reports Other (Tenderness right gluteus); Denies Itching or Rash
Neurological: Reports Dizzy (When standing up fast) and Headache; Denies Weakness
Endocrine: Reports No Symptoms
Hematologic/Lymphatic: Reports No Symptoms
Psych: Reports Calm
Physical Exam
Vital Signs
Vital Signs
Temp Pulse Resp BP Pulse Ox
97.8 F 75 16 109/45 94
07/29/24 11:53 07/29/24 13:30 07/29/24 13:30 07/29/24 13:00 07/29/24 12:16
Physical Exam
General: Comfortable and Conversant; No Pain, Fever or Chills
HEENT: NormoCephalic, Anicteric, Moist mucous membranes, Atraumatic, PERRLA, [place] Conjunctivae, No Ptosis and Neck Nontender
Respiratory: Clear; No Wheezes, Rales or Rhonchi
Cardiac: S1/S2, Regular Rhythm and Peripheral Edema (+1 bilateral pitting edema lower legs); No Murmur, Rub or Gallop
Breast: Deferred by me
GI: Soft, Non Tender, Non Distended, Normal Bowel Sounds and No Hepatosplenomegaly
Rectal: Deferred by Provider
Genito-urinary: Deferred by me
Musculoskeletal: No Clubbing, No Cyanosis, Edema, Left Lower Extremity (+1 pitting) and Edema, Right Lower Extremity (+1 pitting); No Edema, Left Upper Extremity or Edema, Right Upper Extremity
Skin: Warm, Dry and Other (Reports tenderness to right gluteus debbie no obvious contusion, erythema or abrasion); No Rash or Jaundice
Neuro: AO x 3, No Motor Deficits (While in bed), Cranial Nerves Intact and No Sensory Deficits; No Slurred Speech, Facial Droop, Tremors or Sedated
Psych: Calm
Laboratory Results
-
07/29/24 12:04
07/29/24 12:04
Laboratory Results
Total Bilirubin 1.2 mg/dl (0.2-1.3) 07/29/24 12:04
AST 21 U/L (14-36) 07/29/24 12:04
ALT < 10 U/L (0-35) 07/29/24 12:04
Alkaline Phosphatase 82 U/L (38-126) 07/29/24 12:04
Data Reviewed
-
Lab Data: Labs Reviewed by me
Impression/Plan
-
Impression/plan
Admit to MedSurg
#MINERVA 2/2 volume depletion/chronic NSAID use
Creat 1.7 /bun 31 baseline appears 0.6
Patient given 2 L IV NSS in ER
-Follow BMP
-Stop ibuprofen 600 mg 3 times daily scheduled(Patient has been on this medication since May she was on prior meloxicam 7.5 mg daily)
-Hold NSAIDs
Hip x-ray: No fracture
#Bilateral lower extremity leg edema unclear etiology
-Check 2D echo
-Apply teds dressings
#Right gluteal pain secondary to Mechanical FALL
#Chronic right sided sciatica
-No visible contusion to buttocks
-Ice, Tylenol, continue home medication of oxycodone 5 mg every 4 as needed mild pain
-Hold NSAIDs
Consult PT/OT/case management
#Mild hypotension possible volume depletion
BP 109/45
-Patient given 2 L IV NSS will hold further IV fluids given leg edema
-Will check 2D echo
-Check orthostatic vitals
#Chronic Back Pain Flare/lumbar stenosis
#Possible T6 compression fracture contributing age indeterminate May 2023
#Implanted spinal stimulator 2023
-Continue calcium 500+ D
- continue scheduled Tylenol
-Continue oxycodone 5 mg p.o. every 4 hours as needed mild pain
- prn oxycodone - concurrent bowel regimen
- adjunctive Gabapentin 100 mg p.o. 3 times daily and Lidocaine patches
#Hx of Parkinson disease
#History of Hallucinations from Parkinson's
- cont home Rytary 1 P.o. 3 times daily(had changed from standard dose to extended release approximately 2 weeks ago), amantadine
-Follows with neurology at [facility]
-Continue Pimavanserin for history of hallucinations
#Chronic Constipation
- cont MiraLAX 17 g daily, senna 8.6 mg daily as needed, milk of mag 2400 mg p.o. daily as needed constipation, Colace 100 mg daily
#GERD
-Continue Pepcid 20 mg daily as needed
#HLD
Continue atorvastatin 20 mg at bedtime
#Breast cancer status post left breast lumpectomy 12/2001
DVT ppx: SCDs
DNR per patient with son at bedside
--- NOTE | 2024-07-29 16:15 | W.PN.UPDATE ---
Update Note
Progress Note Update
I saw and examined the patient.
The PAYROLL CLERK or PA's note was reviewed and I agree with the note.
Comment:
84 years old female who presented with mechanical fall.
She reported right buttock pain. Apparently, she was unable to stand up after falling. She lives in assisted living. Upon arrival to the ER, she was found to have acute kidney injury, no fracture seen on imaging study. No mental status changes
or fever.
She was noted to have bilateral leg edema which has been progressing and lasted few weeks
Patient was taking Motrin [id number] for osteoarthritis. She was in dose on hospital in May 2024 and was discharged on ibuprofen 600 mg 3 times daily.
Physical Exam
General: No pallor, cyanosis, or jaundice. She is not in distress, laying flat with no shortness of breath
HEENT: Throat clear. PERRLA Normocephalic atraumatic
NECK: Supple. No deformity
RESPIRATORY: Lungs clear to auscultation. No crackles wheezes stridor
CVS: S1, S2
ABDOMEN: Soft, non-tender. No distension. BS+/normal.
EXTREMITIES: edema.
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
Psych, calm, no agitation
Assessment and plan
Acute kidney injury, admit the patient to the hospital, hold Motrin
Do urine study, bladder scan,
Renal ultrasound
Give mild IV fluid
Hypotension noted while examining the patient, mild, will check orthostatic vital signs
History of Parkinson disease with hallucination, continue home medication with Sinemet.
History of chronic constipation, continue home laxatives
Code status: DNR
Total time spent to see the patient, examine the patient, review data and lab results, discuss treatment plan with patient, her son, ER doctor and nursing staff around 75 minutes
[2024-07-29] MEDS: NON-FORMULARY ITEM 1 CAP PO (21:07)
[2024-07-29] MEDS: LIPITOR 20 MG PO (21:10)
[2024-07-29] MEDS: OSCAL 500 + D 500 MG PO (21:10)
[2024-07-29] MEDS: SYMMETREL 100 MG PO (21:10)
[2024-07-29] MEDS: NEURONTIN 100 MG PO (21:10)
[2024-07-29] MEDS: NON-FORMULARY ITEM 34 MG PO (21:57)
[2024-07-30 03:32] VITALS: BP 134/78
[2024-07-30 05:57] VITALS: BMI 24.9
[2024-07-30 06:01] LABS: % Basophils 0.4 % (0-2); % Eosinophils 2.1 % (0-6); % Immature Granulocytes 0.6 % (0-0.5); % Lymphocytes 10.2 % (20.5-51.1); % Monocytes 5.4 % (1.7-9.3); % Neutrophils 81.3 % (42.2-75.2); Absolute Basophils 0.1 10^3/uL (0-0.2); Absolute Eosinophils 0.3 10^3/uL (0-0.7); Absolute Immature Granulocytes 0.1 10^3/uL (0-0.05); Absolute Lymphocytes 1.4 10^3/uL (1.2-3.4); Absolute Monocytes 0.7 10^3/uL (0.1-0.6); Absolute Neutrophils 10.8 10^3/uL (1.4-6.5); Hematocrit 34.2 % (37.0-47.0); Hemoglobin 11.7 g/dL (12.0-16.0); Mean Corp Hgb Conc. 34.2 g/dL (33.0-37.0); Mean Corpuscular Hgb 32.4 pg (27.0-31.0); Mean Corpuscular Volume 94.7 fL (81.0-99.0); Mean Platelet Volume 11.4 fL (7.4-10.4); Nucleated Red Blood Cells % 0 %; Platelet Count 184 10^3/uL (130-400); Red Blood Cell Count 3.61 10^6/uL (4.20-5.40); Red Cell Dist. Width 14.7 % (11.5-14.5); White Blood Cell Count 13.2 10^3/uL (4.8-10.8)
[2024-07-30 06:24] LABS: ALT (SGPT) < 10 U/L (0-35); AST (SGOT) 21 U/L (14-36); Albumin 3.4 g/dl (3.5-5.0); Alkaline Phosphatase 95 U/L (38-126); Blood Urea Nitrogen 21 mg/dl (7-17); Calcium 9.2 mg/dl (8.4-10.2); Carbon Dioxide 26 mmol/L (22-30); Chloride 104 mmol/L (98-107); Estimated Creatinine Clearance 43 ml/min; Glucose 78 mg/dl (70-99); Magnesium 2.2 mg/dl (1.6-2.3); Potassium 3.6 mmol/L (3.5-5.1); Sodium 139 mmol/L (135-145); Total Bilirubin 1.3 mg/dl (0.2-1.3); Total Protein 5.7 g/dl (6.3-8.2); eGFR > 60.00
[2024-07-30 07:57] VITALS: BP 134/71
[2024-07-30] MEDS: TYLENOL 1000 MG PO (08:08)
[2024-07-30] MEDS: MIRALAX 17 GRAMS PO (08:08)
[2024-07-30] MEDS: SYMMETREL 100 MG PO (08:08)
[2024-07-30] MEDS: OSCAL 500 + D 500 MG PO (08:09)
[2024-07-30] MEDS: COLACE 100 MG PO (08:09)
[2024-07-30] MEDS: NEURONTIN 100 MG PO (08:09)
[2024-07-30] MEDS: NON-FORMULARY ITEM 1 CAP PO (08:22)
--- NOTE | 2024-07-30 10:17 | W.PN.HOSP.TC ---
Addendum entered and electronically signed by Sheryl Lopez MD 07/30/24 13:16:
Addendum
Discharge instructions were discussed with her daughter at bedside
Apparently, patient was not taking Motrin as reported on her admission home med list.
End
Original Note:
Today's Communication/Plan
-
discharge
Assessment / Plan
Assessment / Plan
Physical Exam
General: No pallor, cyanosis, or jaundice. She is not in distress, laying flat with no shortness of breath
HEENT: Throat clear. PERRLA Normocephalic atraumatic
NECK: Supple. No deformity
RESPIRATORY: Lungs clear to auscultation. No crackles wheezes stridor
CVS: S1, S2
ABDOMEN: Soft, non-tender. No distension. BS+/normal.
EXTREMITIES: no edema.
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
Psych, calm, no agitation
A/P:
# Acute kidney injury,
Resolved
post IVF and holding Motrin
Suspect secondary to dehydration. Doubt Motrin induced ATN due to rapid recovery
#Hypotension, resolved with IV fluid
# Leukocytosis, reactive
No fever
NO GI or respiratory problems
She feels better today
#Bilateral lower extremity leg edema
Likely dependent edema, much better after Teds stocking.
-Echo showed normal Biventricular size and function, LVEF 60-65%, mild- moderate .
#Right gluteal pain secondary to Mechanical FALL
#Chronic right sided sciatica
-No visible contusion to buttocks
-Ice, Tylenol, continue home medication of oxycodone 5 mg every 4 as needed mild pain
-Hold NSAIDs
Consulted PT/OT/case management
#Chronic Back Pain Flare/lumbar stenosis
#Possible T6 compression fracture contributing age indeterminate May 2023
#Implanted spinal stimulator 2023
-Continue calcium 500+ D
- continue scheduled Tylenol
-Continue oxycodone 5 mg p.o. every 4 hours as needed mild pain
- prn oxycodone - concurrent bowel regimen
- adjunctive Gabapentin 100 mg p.o. 3 times daily and Lidocaine patches
#Hx of Parkinson disease
#History of Hallucinations from Parkinson's
- cont home Rytary 1 P.o. 3 times daily(had changed from standard dose to extended release approximately 2 weeks ago), amantadine
-Follows with neurology at [facility]
-Continue Pimavanserin for history of hallucinations.
No hallucination
#GERD
-Continue Pepcid 20 mg daily as needed
#HLD
Continue atorvastatin 20 mg at bedtime
#Breast cancer status post left breast lumpectomy 12/2001
#History of chronic constipation, continue home laxatives
Code status: DNR
Total discharge time spent to see the patient, examine the patient, review data and lab results, discuss discharge plan with patient and nursing staff around 65 minutes
Anticipated Discharge: Today
Subjective/Interval History
-
Date of Service: July 30, 2024
She feels better
wants to go home
Objective Data
-
Labs:
Laboratory Results
07/30/24
04:45
WBC 13.2 H
Hgb 11.7 L
Hct 34.2 L
Plt Count 184
Sodium 139
Potassium 3.6
Chloride 104
Carbon Dioxide 26
BUN 21 H
Creatinine 0.9
Glucose 78
Calcium 9.2
Total Bilirubin 1.3
AST 21
ALT < 10
Alkaline Phosphatase 95
Vital Signs:
Vital Signs
Temp Pulse Resp BP Pulse Ox
97.8 F 71 18 134/71 95
07/30/24 07:57 07/30/24 07:57 07/30/24 07:57 07/30/24 07:57 07/30/24 07:57
I&O
07/29/24 07/30/24 07/31/24
06:59 06:59 06:59
Intake Total 0 / 0
Output Total 1000 / 1000
Balance -1000 / -1000
--- NOTE | 2024-07-30 11:07 | CM ---
Addendum entered by Marsha Ko 07/30/24 11:37:
CM spoke to daughterMy, via phone; she reported that she will provide transport back to [facility]
Ambulance was cancelled
Original Note:
Met with patient at bedside; daughter Yanira was on speaker phone
Attempted to call daughterMy, via phone; no answer; mailbox full; could not leave a voice mail; CM left contact info with patient for daughter to call when she arrives
Pharmacy: [address]
HOLLIS form explained and signed @ 1055
Patient lives with her spouse @ [facility]; patient receives assistance with personal care
Patient reports that she can feed, dress and toilet self; cares for himself
Per patient she was ambulating with RW to bathroom and fell yesterday
Plan: Return to home at [facility]/Personal Care; ambulance picker and packer scheduled for 1330
Report # [phone]
[2024-07-30 11:59] VITALS: BP 143/85
[2024-07-30] MEDS: NON-FORMULARY ITEM 1 MG PO (12:18)
--- NOTE | 2024-07-30 13:13 | W.DCSUMMARY ---
Discharge Summary
Discharge Data
Date of Admission: 07/29/24
Date of Discharge: 07/30/24
-
Pending Results: No
Hospital Course
84 years old female admitted with right buttock pain after a fall at home and could not stand up. Patient was found to have dehydration with mild acute kidney injury. Imaging studies did not show acute fracture. She was admitted for intravenous
fluid. Repeat kidney function showed resolution with creatinine around 0.9. It was noted she was taking Motrin 600 mg 3 times a day per records but patient reported she was only taking Tylenol for chronic joint pain. Repeat blood work showed mild
leukocytosis. She did not have fever. No respiratory or GI symptoms. No urinary symptoms. Patient was able to ambulate at baseline and she was scheduled to have physical therapy at her facility. Patient has history of Parkinson disease and she
was given her regular home medications in the hospital. She remained hemodynamically stable and was discharged in a stable condition.
Discharge Plan
-
Patient Disposition: Home with Home Care
Discharge Diagnosis/Procedures: Acute kidney injury, dehydration, resolved, kidney function back to normal.
Avoid frequent use of Motrin
You had echocardiogram, was unremarkable with normal left ventricular function of the heart.
Condition: Good
Diet: As tolerated
Referrals:
Anjel Pathak MD [Family Provider] -
Prescriptions:
Continued
atorvastatin 20 MG tablet
20 mg PO HS
amantadine HCl 100 mg capsule
100 mg PO TID
docusate sodium [Colace] 100 mg Capsule
100 mg PO DAILY
gabapentin 100 mg capsule
100 mg PO TID
polyethylene glycol 3350 [Miralax] 17 gram Powder In Packet
17 g PO DAILY
famotidine [Pepcid] 20 mg Tablet
20 mg PO DAILYPRN PRN (Reason: gerd)
pimavanserin 34 mg Capsule
34 mg PO NOON
calcium carbonate-vitamin D3 [Calcium 500 + D] 500 mg-10 mcg (400 unit) Tablet,Chewable
1 tab PO BID
sennosides [senna] 8.6 mg Tablet
8.6 mg PO DAILYPRN PRN (Reason: constipation)
lidocaine 4 % Cream
1 applic TOPICAL Q4HPRN PRN (Reason: mild pain)
therapeutic multivitamin Tablet
1 tab PO DAILY
magnesium hydroxide [Milk of Magnesia] 400 mg/5 mL Suspension
2,400 mg PO DAILYPRN PRN (Reason: constipation)
hydrocortisone [Preparation H Hydrocortisone] 1 % Cream
1 applic [place] BIDPRN PRN (Reason: hemorrhoids)
Rytary 36.25-145 mg Capsule, Extended Release
1 cap PO TID
acetaminophen 325 mg tablet
650 mg PO Q4HPRN PRN (Reason: mild pain)
oxycodone 5 mg tablet
5 mg PO Q4HPRN PRN (Reason: mild Pain)
Discontinued
ibuprofen 600 mg Tablet
600 mg PO TID
Discharge Orders:
Discharge Patient (As Directed); Ordered 07/30/24
Ordered By: Sheryl Lopez
Discharge Date and Time
Print Language: ROMANIAN
== END 2024-07-30 13:46 | disposition home or self-care (01) ==
LOC: 4 WEST ACU 16:38
PROVIDERS: Clinical Nurse Specialist Family Health; ADMITTING PHYSICIAN Internal Medicine; EMERGENCY PHYSICIAN Emergency Medicine; FAMILY PHYSICIAN Internal Medicine
DX: N17.9 Acute kidney failure, unspecified (principal); R53.1 Weakness; G20.A1 Parkinson's disease without dyskinesia, without mention of fluctuations; I95.9 Hypotension, unspecified; Z11.52 Encounter for screening for COVID-19; E86.0 Dehydration; M54.31 Sciatica, right side; W19.XXXA Unspecified fall, initial encounter; Z79.1 Long term (current) use of non-steroidal anti-inflammatories (NSAID); R60.0 Localized edema; M54.59 Other low back pain; G89.29 Other chronic pain; M48.061 Spinal stenosis, lumbar region without neurogenic claudication; Z79.899 Other long term (current) drug therapy; K59.09 Other constipation; K21.9 Gastro-esophageal reflux disease without esophagitis; Z90.49 Acquired absence of other specified parts of digestive tract; Z85.3 Personal history of malignant neoplasm of breast; Z66 Do not resuscitate
CPT/HCPCS: 51701; 73502; 80053; 81003; 81015; 83735; 85025; 87070; 87502; 87811; 93005; 93306; 99285; G0378

== ENCOUNTER 2024-08-14 16:30 | Inpatient (IN) | payer MEDICARE, SELFPAY ==
[2024-08-14 13:00] VITALS: BP 131/68
[2024-08-14 13:15] LABS: % Basophils 0.7 % (0-2); % Eosinophils 9.1 % (0-6); % Immature Granulocytes 0.4 % (0-0.5); % Lymphocytes 27.5 % (20.5-51.1); % Monocytes 10.4 % (1.7-9.3); % Neutrophils 51.9 % (42.2-75.2); Absolute Basophils 0.1 10^3/uL (0-0.2); Absolute Eosinophils 0.6 10^3/uL (0-0.7); Absolute Lymphocytes 1.9 10^3/uL (1.2-3.4); Absolute Monocytes 0.7 10^3/uL (0.1-0.6); Absolute Neutrophils 3.5 10^3/uL (1.4-6.5); Hematocrit 36.8 % (37.0-47.0); Hemoglobin 12.4 g/dL (12.0-16.0); Mean Corp Hgb Conc. 33.7 g/dL (33.0-37.0); Mean Corpuscular Hgb 32.5 pg (27.0-31.0); Mean Corpuscular Volume 96.6 fL (81.0-99.0); Mean Platelet Volume 10.4 fL (7.4-10.4); Nucleated Red Blood Cells % 0 %; Platelet Count 203 10^3/uL (130-400); Red Blood Cell Count 3.81 10^6/uL (4.20-5.40); Red Cell Dist. Width 14.9 % (11.5-14.5); White Blood Cell Count 6.7 10^3/uL (4.8-10.8)
--- NOTE | 2024-08-14 13:16 | ED.GENMED ---
History of Present Illness
General
Chief Complaint: Fall
Source: patient
Exam Limitations: none
Time Seen by Provider: 08/14/24 13:01
History of Present Illness
History of Present Illness:
84yoF with a history of Parkinson's disease, hyperlipidemia, and chronic low back pain presenting via EMS for evaluation after a fall. Patient is a resident at [facility]. She was moving some clothing on her bed less than an hour ago.
She lost her footing and fell backwards onto her left hip. She did hit her head after the initial impact. There was no loss of consciousness. Patient was unable to get up after the fall and EMS was called. Patient is complaining of left hip,
thigh, and groin pain. She is otherwise asymptomatic and denies any headache, neck pain, abdominal pain. She does not take any blood thinners.
Past History
Past History
ED Past Medical History: Hypercholesterolemia, Other (PD, Lumbar stenosis, Herniated disc, Parkinson's) and Other
ED Past Surgical History: Orthopedic (Back surgery)
Social History
Tobacco: Non-smoker
Alcohol: None
Drug: None
Personal:
Living: with family
Employment: Retired
Phy Exam
General Physical Exam
General Presentation: well appearing
General Skin: warm and dry
General Habitus: elderly
General Mental: alert
ENT Exam
ENT Exam: normocephalic
Additional ENT: No external signs of head trauma. No cervical spine tenderness
Eye Exam
Eye Exam: PERRL
Pulmonary Exam
Pulmonary Exam: lungs clear, no respiratory distress, no rales, no crackles and no rhonchi
Gastrointestinal Exam
Gastrointestinal Exam: non tender, soft and non distended
Neurological Exam
Neurological Exam: alert
[place] Coma Scale
Eye Opening: Spontaneous
Verbal Response: Oriented
Motor Response: Obeys Commands
GCS Total Score: 15
Musculoskeletal Exam
Musculoskeletal Exam: other (L leg is shortened and internally rotated. No deformity noted. Small area of ecchymosis to posterior L hip. Unable to range hip/knee joint. Able to wiggle toes.2+ DP pulse.)
Skin Exam
Skin Exam: warm/dry
Course
Orders/Labs/Results
Orders:
Orders
08/14/24 13:02
Hip, Left 2-3 Views [CR Hip - LT w/wo Pel 2-3 Vw*] Urgent
Comment:
Reason For Exam: fall
Include a pelvis x-ray?: Yes
08/14/24 13:07
Type And Crossmatch [Type+Screen] Urgent
CMP [Comprehensive Metabolic Panel] Urgent
Complete Blood Count/With Diff Urgent
Direct Bilirubin Urgent
Comment: ADD ON
LDH Urgent
Comment: ADD ON
NT-proBNP Urgent
Comment: ADD ON
Reticulocyte Count Urgent
Comment: ADD ON
08/14/24 13:15
HYDROmorphone [Dilaudid] 0.5 mg IV NOW STA
08/14/24 13:16
CR Femur - Left Min 2 Vw Urgent
Comment:
Reason For Exam: pain
08/14/24 15:05
Acetaminophen [Tylenol] 1,000 mg PO NOW STA
08/14/24 15:38
EKG [Electrocardiogram (*1)] Urgent
Reason for Study: Abnormal EKG
08/14/24 15:50
ORTHOPEDIC CONSULT Routine
Consulting Provider: Dajuan Jimenez
Was physician already notified: Yes
Reason for consult: hip Fx
08/14/24 15:51
Add On- LAB Urgent
Tests Added?: PRoBNP
08/14/24 15:57
Admit/Transfer Patient As Directed
Co-Sign Provider:
Level of Care: Inpatient admission
Assign to:: Medical/Surgical
Physician / Group: Hospitalist
Diagnosis: L hip Fx
Reason for Hospitalization: L hip Fx
Expected length of stay greater than two midnights?: Yes
ELOS- Estimated Length of Stay in days: 3
I certify the patient meets the requirements for IP care: Yes
PRN Pain Medication Management As Directed
May give lesser potent ordered pain med per pt: Yes
preference::
Protocol:: Medication orders for pain may be administered in a
manner that supports deferring to patient preference
when the pt is:
- Requesting an ordered lesser potent pain medication.
Least to most potent pain medications are defined
as: acetaminophen < NSAID < tramadol < opioids
(morphine, oxycodone, hydromorphone).
- Requesting a lesser dose of the same medication IF
ORDERED.
- Requesting a less intrusive route of administration
if both routes are prescribed by the provider (PO <
IV).
08/14/24 15:58
Code Status As Directed
Resuscitation Status: Full Code
08/14/24 16:04
Protime/PTT Stat
08/14/24 16:07
CR Chest Portable - 1 View Urgent
Comment:
Reason For Exam: moderate , intermittent SOB
Reason Study Needs to be Portable: Other
08/14/24 16:52
Bisacodyl [Dulcolax] 10 mg RECTAL [id number] PRN
Docusate W/Senna [Senokot-S] 1 tablet PO BIDPRN PRN
Famotidine [Pepcid] 20 mg PO DAILYPRN PRN
Ondansetron Injectable [Zofran] 4 mg IV Q8HPRN PRN
Oxycodone [Roxicodone] 5 mg PO Q4HPRN PRN
Polyethylene Glycol Powder [Miralax] 17 grams PO DAILYPRN PRN
carbidopa-levodopa [Rytary] 1 cap PO TID
08/14/24 16:52
Add On- LAB Routine
Tests Added?: DIrect bili, LDH, retics
Activity As Directed
Activity Level: Out of Bed-Early Mobility
Vital Signs As Directed
Frequency: Per unit guidelines
Lower Ext Arterial & ZOEY US [US Periph Art LOWER Ext w ZOEY] Routine
Comment:
Reason For Exam: b/l le swelling
DX Deep Vein Thrombosis Video Routine
08/14/24 18:00
Acetaminophen [Tylenol] 650 mg PO Q4HPRN PRN
Morphine Sulfate 2 mg IV Q4HPRN PRN
08/14/24 18:30
Heparin 5,000 units SC Q8
08/14/24 22:00
Amantadine [Symmetrel] 100 mg PO TID
Gabapentin [Neurontin] 100 mg PO TID
08/15/24 06:00
Type+Screen IN AM
NPO
Allow oral meds: Yes
Allow clear liquids: 4hrs prior to procedure
NPO with Ice Chips: Yes
Comment: may have unrestricted clear liquid up to 4 hrs prior to scheduled procedure
Complete Blood Count/With Diff IN AM
Comprehensive Metabolic Panel IN AM
08/15/24 12:00
pimavanserin 34 mg PO NOON
08/16/24 06:00
NT-proBNP IN AM
PT Consult [Pt Eval And Treat] IN AM
Activity Level: Out of Bed-Early Mobility
Abnormal Lab Results
08/14/24
13:07
RBC 3.81 L 10^6/uL
(4.20-5.40)
Hct 36.8 L %
(37.0-47.0)
MCH 32.5 H pg
(27.0-31.0)
RDW 14.9 H %
(11.5-14.5)
Absolute Monos (auto) 0.7 H 10^3/uL
(0.1-0.6)
Monocytes % 10.4 H %
(1.7-9.3)
Eosinophils % 9.1 H %
(0-6)
Glucose 101 H mg/dl
(70-99)
Total Bilirubin 2.3 H mg/dl
(0.2-1.3)
Alkaline Phosphatase 152 H U/L
(38-126)
Lactate Dehydrogenase 257 H U/L
(120-246)
08/14/24 13:07
08/14/24 13:07
Vital Signs
Initial and Last Documented VS:
Initial Vital Signs
Temp
97.3 F
08/14/24 12:53
Last Documented Vital Signs
Temp Pulse Resp BP Pulse Ox
98.0 F 93 18 146/90 95
08/14/24 17:00 08/14/24 17:00 08/14/24 17:00 08/14/24 17:00 08/14/24 17:50
MDM/Problems Addressed
Differential Diagnosis Includes:
84yoF here with L hip/leg pain after a mechanical fall. +Head strike but denies headache or LOC. L leg is internally rotated on exam without deformity. LLE is neurovascularly intact. No other injuries appreciated on exam. Differential diagnosis
includes but is not limited to: hip fracture, dislocation, soft tissue injury
Initial ED plan: Check labs and L hip/femur x-rays. IV Dilaudid for pain.
*Critical Care Note
Total Time (30-74mins, 75-104mins- exclusive of procedures): Not Applicable
Update Note
Update Note:
X-rays confirm a femoral neck fracture. CT head/cervical spine initially ordered for concern for a distracting injury. On reassessment, she continues to deny headache and neck pain. Cervical spine cleared clinically. Orthopedics team notified and
patient admitted for management.
ED Attending Note
-
Portions of this chart may have been created with voice recognition software.� Occasional wrong word or��sound alike� substitutions may have occurred due to the inherent limitations of voice recognition software.
Discharge Plan
Departure
Patient Disposition: Admit
Date of Disposition: 08/14/24
Time of Disposition: 15:09
Presentation/result/management discussed w/ accepting MD/DO: Hospitalist
Discharge Problem:
Closed fracture of left hip
Interventions
Interventions:
*Risk Screen - Suicide Last Done: 08/14/24 17:07
*General Assessment Last Done: 08/14/24 13:00
*Neglect/Abuse Screening Last Done: 08/14/24 13:00
*ED- Fall Risk Assessment Last Done: 08/14/24 13:00
*ED COVID-19 Vaccine History Last Done: 08/14/24 12:58
*Nursing Disposition Last Done: 08/14/24 17:07
ED-Musculoskeletal Assessment Last Done: 08/14/24 14:45
ED- Neurological Assessment Last Done: 08/14/24 14:45
ED-Skin Assessment Last Done: 08/14/24 14:46
Discharge Date and Time
Discharge Date/Time: 08/14/24 17:09
[2024-08-14 13:26] LABS: ALT (SGPT) < 10 U/L (0-35); AST (SGOT) 24 U/L (14-36); Albumin 4.1 g/dl (3.5-5.0); Alkaline Phosphatase 152 U/L (38-126); Blood Urea Nitrogen 15 mg/dl (7-17); Calcium 9.9 mg/dl (8.4-10.2); Carbon Dioxide 30 mmol/L (22-30); Chloride 105 mmol/L (98-107); Glucose 101 mg/dl (70-99); Potassium 3.9 mmol/L (3.5-5.1); Sodium 142 mmol/L (135-145); Total Bilirubin 2.3 mg/dl (0.2-1.3); eGFR > 60.00
[2024-08-14] MEDS: DILAUDID 0.5 MG IV (13:42)
[2024-08-14 15:00] VITALS: BP 140/70
[2024-08-14] MEDS: TYLENOL 1000 MG PO (15:15)
--- NOTE | 2024-08-14 16:02 | HPS.HSE ---
Family Physician
-
Family Physician: Milton Pierce MD
Chief Complaint
-
L hip pain
History of Present Illness
84yo F with PMHx of chronic pain, parkinsons, GERD, Breast CA s/p L lumpectomy, chronic ambulatory deficiency ambulating with walker, resident of independent living facility ([facility]) brought after she sustained the fall when she lost her ballance
while trying to lift something from her bed. Patient felt sharp pain in L upper leg and XR in ED showed Comminuted transcervical left femoral neck fracture with varus angulation. Orthopedics planning for surgical repair.
Patient denied LOC, chest pain, cardiac symptoms or recent respiratory infection.
Medical History
Past Medical History
Past Medical History: Reports Other
Additional Past Medical History:
see HPI
Past Surgical History: Reports Other
Additional Past Surgical History:
see HPI
Social History
Tobacco: Non-smoker
Alcohol: None
Drug: None
Family History
Family History: Not pertinent
Allergies / Home Medications
Allergies reflects when Allergies were last updated in [employer].
Home Medications with original date entered in [employer]
Allergy/Medication List:
Allergies
Allergy/AdvReac Type Severity Reaction Status Date / Time
naproxen Allergy Unknown Verified 06/14/24 01:56
Penicillins Allergy Swelling Verified 06/14/24 01:56
tramadol Allergy Nausea / Verified 06/14/24 01:56
Vomiting
zonisamide Allergy Unknown Verified 06/14/24 01:56
Home Medications
atorvastatin 20 mg tablet 20 mg PO HS High Cholesterol 01/04/13
amantadine HCl 100 mg capsule 100 mg PO TID Neurological Condition 10/30/22
docusate sodium 100 mg capsule (Colace) 100 mg PO DAILY Constipation 10/30/22
gabapentin 100 mg capsule 100 mg PO TID Neurological Condition 10/30/22
famotidine 20 mg tablet (Pepcid) 20 mg PO DAILYPRN PRN gerd 05/19/24
pimavanserin 34 mg capsule 34 mg PO NOON Mental Health/Anxiety 05/19/24
polyethylene glycol 3350 17 gram oral powder packet (Miralax) 17 g PO DAILY Constipation 05/19/24
acetaminophen 325 mg tablet 650 mg PO Q4HPRN PRN mild pain 07/29/24
carbidopa ER 36.25 mg-levodopa 145 mg capsule,extended release (Rytary) 1 cap PO TID PARKINSON 07/29/24
hydrocortisone 1 % topical cream (Preparation H Hydrocortisone) 1 applic HI BIDPRN PRN hemorrhoids 07/29/24
lidocaine 4 % topical cream 1 applic topical Q4HPRN PRN mild pain 07/29/24
magnesium hydroxide 400 mg/5 mL oral suspension (Milk of Magnesia) 2,400 mg PO DAILYPRN PRN constipation 07/29/24
oxycodone 5 mg tablet 5 mg PO Q4HPRN PRN mild Pain 07/29/24
sennosides 8.6 mg tablet (senna) 8.6 mg PO DAILYPRN PRN constipation 07/29/24
therapeutic multivitamin 1 tab PO DAILY Supplement 07/29/24
calcium 500 mg (as carbonate)-vitamin D3 10 mcg (400 unit) tablet (Oyster Shell Calcium-Vitamin D3) 1 tab PO BID 08/14/24
Review of Systems
-
History Source: Patient
A 12 point ROS was completed and negative except as noted: Yes
Musculoskeletal: Reports See HPI
Physical Exam
Vital Signs
Vital Signs
Temp Pulse Resp BP Pulse Ox
97.3 F 76 21 131/68 91
08/14/24 12:53 08/14/24 13:30 08/14/24 13:30 08/14/24 13:00 08/14/24 13:30
Physical Exam
General: Well Developed, Well Nourished and No Apparent Distress
HEENT: NormoCephalic, Anicteric and Moist mucous membranes
Respiratory: Clear; No Wheezes, Rales or Rhonchi
Cardiac: S1/S2, Regular Rhythm and Murmur (mid systolic)
GI: Soft, Non Tender and Non Distended
Genito-urinary: No costovertebral tender
Musculoskeletal: No Clubbing, No Cyanosis, Edema, Left Lower Extremity and Edema, Right Lower Extremity
Neuro: Awake, Alert, Oriented and AO x 3
Psych: Calm
Laboratory Results
-
08/14/24 13:07
08/14/24 13:07
Laboratory Results
Total Bilirubin 2.3 mg/dl (0.2-1.3) H 08/14/24 13:07
AST 24 U/L (14-36) 08/14/24 13:07
ALT < 10 U/L (0-35) 08/14/24 13:07
Alkaline Phosphatase 152 U/L (38-126) H 08/14/24 13:07
Data Reviewed
-
Diagnostic Radiology: Report Reviewed by me
Lab Data: Labs Reviewed by me
Impression/Plan
-
84yo F with PMHx of chronic pain, parkinsons, GERD, Breast CA s/p L lumpectomy, chronic ambulatory deficiency ambulating with walker, resident of independent living facility ([facility]) brought after she sustaine dthe fall when she lost her ballance
while trying to lift something from her bed. Patient felt sharp pain in L upper leg and XR in ED showed Comminuted transcervical left femoral neck fracture with varus angulation. Orthopedics planning for surgical repair.
Patient denied LOC, chest pain, cardiac symptoms or recent respiratory infection.
A/P:
#Comminuted transcervical left femoral neck fracture with varus angulation with chronic ambilatory deficiency
suspect traumatic with osteoporotic component
pain mgmt
Ortho consult
PT/OT when able
Patient is low-moderate risk for intermediate risk Sx, proBNP, coag panel, chest XR and EKG ahead of Sx, cont home meds, watch for volume overload postOP, repeat ProBNP
#Bilirubinemia
Check LDH, direct bili and retics
#Mild Alk.phos elevation
suspect osteoporosis
Outpatient Biphosphonates
#b/l LE swelling
as per patient - chronic
with b/l redness - concern for possible vascular insufficiency
check proBNP
US arterial with ZOEY
#mild-moserate
#Parkinsons
#GERD
#HLD
#Neuropathy
#Hemorrhoids
cont home meds
DVt ppx on hep
Full code - confirmed with herbert castano
I have spent at least 78min reviewing chart, test results, communication with consultants and providing direct patient care
[2024-08-14 16:19] LABS: INR 0.99; PT 13.4 Sec (11.4-14.6)
[2024-08-14 16:20] LABS: APTT 34.9 Sec (23.4-35.0)
[2024-08-14 16:43] LABS: NT-proBNP 596 pg/ml
[2024-08-14 17:00] VITALS: BP 146/90
--- NOTE | 2024-08-14 17:15 | W.PN.UPDATE ---
Update Note
Progress Note Update
Full orthopedic consult dictated:
DX: Displaced left femoral neck fracture
Plan: Patient unfortunately sustained left femoral neck fracture which is displaced. It is going to require surgical fixation with a left hip hemiarthroplasty on Thursday under the direction of Dr. Jimenez. She will be n.p.o. after midnight and
Ancef on-call to operating room. Surgical consent signed by patient and surgical location marked.
--- NOTE | 2024-08-14 17:18 | PTCARENOTE ---
Received patient from ED via stretcher. Pt AAOX3. Pox: 96% RA. Bed alarm on. Call carvalho within reach. Plan of care ongoing.
[2024-08-14 17:25] LABS: Direct Bilirubin 0.3 mg/dl (0.0-0.4); LDH 257 U/L (120-246)
[2024-08-14 18:03] VITALS: BMI 24.1
[2024-08-14] MEDS: ROXICODONE 5 MG PO ×2 (18:25→22:52)
[2024-08-14] MEDS: HEPARIN 5000 UNITS SC ×2 (18:38→23:47)
[2024-08-14] MEDS: SYMMETREL 100 MG PO (21:31)
[2024-08-14] MEDS: NEURONTIN 100 MG PO (21:31)
[2024-08-14 23:05] VITALS: BP 166/97
[2024-08-14 23:45] VITALS: BP 132/79
[2024-08-15] VITALS (14 sets, daily range): BP systolic 96–189; BP diastolic 55–92
[2024-08-15] MEDS: ROXICODONE 5 MG PO (04:43)
[2024-08-15] MEDS: SYMMETREL 100 MG PO ×3 (07:28→21:28)
[2024-08-15] MEDS: NEURONTIN 100 MG PO ×3 (07:29→21:27)
--- NOTE | 2024-08-15 08:13 | W.PN.UPDATE ---
Update Note
Progress Note Update
Patient comfortably at bed rest. Plan for LEFT hip hemiarthroplasty later today under the direction of Dr. Jimenez. She should remain NPO. Afeb. AM labs pending. Surgical and blood consents have been signed. Operative site has been marked. ABX and
irrigation products OCTOR. OR aware
--- NOTE | 2024-08-15 08:32 | PTOTSP ---
Received order for PT and reviewed chart. Pt going to OR today for left hip repair. Will HOLD PT and await post-op orders from Ortho service including OT and weightbearing status.
[2024-08-15 08:51] LABS: ALT (SGPT) < 10 U/L (0-35); AST (SGOT) 32 U/L (14-36); Albumin 3.6 g/dl (3.5-5.0); Alkaline Phosphatase 140 U/L (38-126); Blood Urea Nitrogen 12 mg/dl (7-17); Carbon Dioxide 27 mmol/L (22-30); Chloride 105 mmol/L (98-107); Estimated Creatinine Clearance 55 ml/min; Glucose 82 mg/dl (70-99); Potassium 4.1 mmol/L (3.5-5.1); Sodium 139 mmol/L (135-145); Total Bilirubin 2.9 mg/dl (0.2-1.3); Total Protein 6.3 g/dl (6.3-8.2); eGFR > 60.00
[2024-08-15 08:54] LABS: % Basophils 0.6 % (0-2); % Eosinophils 8.6 % (0-6); % Immature Granulocytes 0.4 % (0-0.5); % Lymphocytes 15.3 % (20.5-51.1); % Neutrophils 66.1 % (42.2-75.2); Absolute Eosinophils 0.4 10^3/uL (0-0.7); Absolute Lymphocytes 0.8 10^3/uL (1.2-3.4); Absolute Monocytes 0.5 10^3/uL (0.1-0.6); Absolute Neutrophils 3.4 10^3/uL (1.4-6.5); Hematocrit 36.8 % (37.0-47.0); Hemoglobin 12.4 g/dL (12.0-16.0); Mean Corp Hgb Conc. 33.7 g/dL (33.0-37.0); Mean Corpuscular Hgb 32.1 pg (27.0-31.0); Mean Corpuscular Volume 95.3 fL (81.0-99.0); Nucleated Red Blood Cells % 0 %; Platelet Count 171 10^3/uL (130-400); Red Blood Cell Count 3.86 10^6/uL (4.20-5.40); Red Cell Dist. Width 14.5 % (11.5-14.5); White Blood Cell Count 5.1 10^3/uL (4.8-10.8)
[2024-08-15] MEDS: NON-FORMULARY ITEM 34 MG PO (12:13)
--- NOTE | 2024-08-15 14:42 | CM ---
Attempted x3 to see pt to complete IA - pt off unit for ultrasound, then to OR
Will attempt to see pt again
--- NOTE | 2024-08-15 16:00 | PTCARENOTE ---
Received patient from PACU via bed. Pt AAOX3. Pox: 96% 2L NC. IVFs infusing without difficulty. Call carvalho within reach. Plan of care ongoing.
[2024-08-15] MEDS: NSS 1000 IV (16:41)
[2024-08-15] MEDS: ASPIRIN 325 MG PO (17:22)
[2024-08-15] MEDS: NON-FORMULARY ITEM 1 CAP PO (21:28)
[2024-08-15] MEDS: SENOKOT 17.2 MG PO (21:28)
[2024-08-15] MEDS: COLACE 100 MG PO (21:28)
[2024-08-15] MEDS: ANCEF 5 IV (21:29)
[2024-08-16] VITALS (7 sets, daily range): BP systolic 105–133; BP diastolic 59–75; PULSE 75–76; O2SAT 95
[2024-08-16] MEDS: ANCEF 5 IV (05:15)
--- NOTE | 2024-08-16 07:19 | W.PN.ORTHO ---
Today's Communication / Plan
-
POD#1 left hip hemiarthroplasty under the direction of Dr. Jimenez
--WBAT. Ambulate with assistance of a walker
--Hip precautions
--PT/OT
--Pain management as needed
--Recommend aspirin 325mg daily x4 weeks postop for DVT prophylaxis
--Maintain surgical dressing
--Case management consult for discharge planning
--Orthopedics will continue to follow along
Assessment
.
Distal Motor Intact: Yes
Dressing:
Clean, dry and intact.
Plan
.
Surgery / Date: Left hip hemiarthroplasty 08/15 Dr. Jimenez
DVT Prophylaxis: Aspirin
Activity:
Out of bed.
PT/OT
Subjective
.
.:
Patient resting comfortably in bed this morning. Overall, her pain is well controlled at this time. She does report some soreness. She has not been out of bed yet
Vital Signs and Labs
.
Vital Signs and Labs:
Lab Results
08/15/24 06:36
08/15/24 06:36
Temp Pulse Resp BP Pulse Ox
99.0 F 74 18 106/70 97
08/16/24 03:32 08/16/24 03:32 08/16/24 03:32 08/16/24 03:32 08/16/24 03:32
PT 13.4 Sec (11.4-14.6) 08/14/24 16:04
INR 0.99 08/14/24 16:04
Non-invasive Hgb result: 12.1
Physical Exam
-
Directed exam of left hip reveal surgical dressing in place. This is clean, dry, and intact. Mild tenderness to palpation of lateral hip, thigh is soft and compressible. able to planterflex/dorsiflex the ankle. calf soft and nontender. NVI distally
[2024-08-16 08:39] LABS: NT-proBNP 1430 pg/ml
[2024-08-16] MEDS: COLACE 100 MG PO ×2 (09:24→20:20)
[2024-08-16] MEDS: NON-FORMULARY ITEM 1 CAP PO ×3 (09:24→22:27)
[2024-08-16] MEDS: ASPIRIN 325 MG PO (09:24)
[2024-08-16] MEDS: SYMMETREL 100 MG PO ×3 (09:24→22:27)
[2024-08-16] MEDS: NEURONTIN 100 MG PO ×3 (09:24→22:27)
[2024-08-16] MEDS: SENOKOT PO (09:26)
[2024-08-16] MEDS: TYLENOL 650 MG PO ×2 (09:28→22:33)
--- NOTE | 2024-08-16 11:14 | CM ---
Met with pt. Initial assessment completed
Lives at [facility] assisted [facility]
Some assist with adl's, can feed self. Ambulates with rolling walker
DME - rolling walker
SNF - past [facility] and [facility]
HH - [facility] in past
PCP - Milton Pierce
Pharm - [facility]
PT/OT evals pending
Discussed SNF - requesting referrals to [facility]
Will send referral in [facility]. Lupe at [facility] updated
Plan - anticipate SNF when medically ready
--- NOTE | 2024-08-16 12:02 | W.PN.HOSP.TC ---
Today's Communication/Plan
-
Assessment / Plan
Assessment / Plan
NAD
Scleral Anicteric
DMM
No JVD
CTABL
RRR, S1/S2
Soft, NT, ND, BS+
Warm, Dry
AAOx3
Calm
Left displaced femoral neck fracture
- Secondary to traumatic fall that was ground-level
- S/p left hip cemented bipolar endoprosthesis
- PT OT
- Ankle pumps
- Incentive spirometer
- Bowel movement-monitor
- DVT prophylaxis per orthopedics
- Follow-up outpatient orthopedic
Indirect hyperbilirubinemia along with high alk phos.
Will check right upper quadrant ultrasound
Will check peripheral smear
Hemoglobin stable
Hyperlipidemia
Continue statin
GERD continue Pepcid
Anticipated Discharge: Within 24 hours
Subjective/Interval History
-
Date of Service: August 16, 2024
Seen and examined. Tolerated hip repair well. No new complaints. No acute overnight events.
Passing gas has not had a bowel movement urinating well though.
Eating a diet well
Objective Data
-
Vital Signs:
Vital Signs
Temp Pulse Resp BP Pulse Ox
97.9 F 76 18 125/67 96
08/16/24 11:10 08/16/24 11:10 08/16/24 11:10 08/16/24 11:10 08/16/24 11:10
I&O
08/15/24 08/16/24 08/17/24
06:59 06:59 06:59
Intake Total 900 / 900 360 / 360
Output Total 600 / 600 1275 / 1275
Balance -600 / -600 -375 / -375 360 / 360
[2024-08-16] MEDS: NON-FORMULARY ITEM 34 MG PO (12:47)
[2024-08-16] MEDS: SENOKOT 17.2 MG PO (20:20)
[2024-08-17 07:10] VITALS: BP 124/66
--- NOTE | 2024-08-17 07:35 | W.PN.ORTHO ---
Today's Communication / Plan
-
POD#2 left hip cemented bipolar endoprosthesis with Dr. Mcallister
--WBAT. Ambulate with assistance of a walker
--Hip precautions posterior x6 weeks
--PT/OT
--Pain management as needed
--Recommend aspirin 325mg daily x4 weeks postop for DVT prophylaxis unless recommended otherwise per primary
--Maintain surgical dressing
--Case management consult for discharge planning
--Orthopedics will follow peripherally; DC info UTD
Assessment
.
Distal Motor Intact: Yes
Dressing:
Clean, dry and intact.
Plan
.
Surgery / Date: L Hip cemented bipolar endoprosthesis 08/15
Activity:
Out of bed.
PT/OT
Subjective
.
.:
Patient resting comfortably.
Vital Signs and Labs
.
Vital Signs and Labs:
Lab Results
08/15/24 06:36
08/15/24 06:36
Temp Pulse Resp BP Pulse Ox
98.3 F 78 16 116/63 93
08/16/24 23:10 08/16/24 23:10 08/16/24 23:10 08/16/24 23:10 08/17/24 00:00
PT 13.4 Sec (11.4-14.6) 08/14/24 16:04
INR 0.99 08/14/24 16:04
Non-invasive Hgb result: 11.7
[2024-08-17] MEDS: NEURONTIN 100 MG PO (08:46)
[2024-08-17] MEDS: SYMMETREL 100 MG PO (08:47)
[2024-08-17] MEDS: COLACE 100 MG PO (08:47)
[2024-08-17] MEDS: NON-FORMULARY ITEM 1 CAP PO (08:47)
[2024-08-17] MEDS: ASPIRIN 325 MG PO (08:47)
[2024-08-17] MEDS: SENOKOT 17.2 MG PO (08:47)
[2024-08-17 09:10] VITALS: BP 102/61; PULSE 87; O2SAT 92
[2024-08-17 10:16] VITALS: BP 102/61; PULSE 83; O2SAT 91
--- NOTE | 2024-08-17 10:28 | CM ---
CM received call from patient's son Alurel who was requesting a discharge planning update. CM advised that patient has not been discharged, but [facility] has accepted. CM will confirm bed availability once patient is cleared. CM will remain available.
[2024-08-17] MEDS: NON-FORMULARY ITEM 34 MG PO (11:22)
[2024-08-17 11:24] LABS: Hematocrit 35.1 % (37.0-47.0); Hemoglobin 11.8 g/dL (12.0-16.0); Mean Corp Hgb Conc. 33.6 g/dL (33.0-37.0); Mean Corpuscular Hgb 32.5 pg (27.0-31.0); Mean Corpuscular Volume 96.7 fL (81.0-99.0); Mean Platelet Volume 10.6 fL (7.4-10.4); Platelet Count 180 10^3/uL (130-400); Red Blood Cell Count 3.63 10^6/uL (4.20-5.40); White Blood Cell Count 6.4 10^3/uL (4.8-10.8)
--- NOTE | 2024-08-17 11:26 | W.PN.HOSP.TC ---
Today's Communication/Plan
-
If able to get bed placement at [facility] then we will plan to discharge later today
Son was called and updated of plan
Assessment / Plan
Assessment / Plan
NAD
Scleral Anicteric
DMM
No JVD
CTABL
RRR, S1/S2
Soft, NT, ND, BS+
Warm, Dry
AAOx3
Calm
Left displaced femoral neck fracture
- Secondary to traumatic fall that was ground-level
- S/p left hip cemented bipolar endoprosthesis postop day 1
- PT OT recommends SNF
- Ankle pumps
- Incentive spirometer
- Bowel movement-monitor
- DVT prophylaxis per orthopedics aspirin 325 mg daily
- Follow-up outpatient orthopedic
Indirect hyperbilirubinemia along with high alk phos.
Outpatient GI follow-up
Hyperlipidemia
Continue statin
GERD continue Pepcid
Anticipated Discharge: Today
Subjective/Interval History
-
Date of Service: August 17, 2024
Seen and examined. No new complaints. No acute overnight events.
Having formed bowel movements already had 1 earlier this morning.
Objective Data
-
Labs:
Laboratory Results
08/17/24
10:58
WBC 6.4
Hgb 11.8 L
Hct 35.1 L
Plt Count 180
Sodium Pending
Potassium Pending
Chloride Pending
Carbon Dioxide Pending
BUN Pending
Creatinine Pending
Glucose Pending
Calcium Pending
Vital Signs:
Vital Signs
Temp Pulse Resp BP Pulse Ox
97.9 F 71 16 124/66 93
08/17/24 07:10 08/17/24 07:10 08/17/24 07:10 08/17/24 07:10 08/17/24 08:54
I&O
08/16/24 08/17/24 08/18/24
06:59 06:59 06:59
Intake Total 900 / 900 600 / 600 240 / 240
Output Total 1275 / 1275 250 / 250
Balance -375 / -375 600 / 600 -10 / -10
--- NOTE | 2024-08-17 11:28 | CM ---
Addendum entered by Asha Callahan RN 08/17/24 12:40:
CM updated patient's son with plan for transfer to [facility]. He is in agreement with plan.
Addendum entered by Asha Callahan RN 08/17/24 12:25:
Discharge to [facility]
PLAN:
[facility]
Report
[phone]

Original Note:
Patient is medically ready for discharge today. CM contacted Lupe at [facility] to confirm bed availability. CM will await call back from Lupe to confirm bed.
[2024-08-17 11:35] LABS: Blood Urea Nitrogen 20 mg/dl (7-17); Calcium 9.3 mg/dl (8.4-10.2); Carbon Dioxide 22 mmol/L (22-30); Chloride 107 mmol/L (98-107); Estimated Creatinine Clearance 55 ml/min; Glucose 140 mg/dl (70-99); Potassium 3.9 mmol/L (3.5-5.1); Sodium 142 mmol/L (135-145); eGFR > 60.00
[2024-08-17 11:51] LABS: ALT (SGPT) 16 U/L (0-35); AST (SGOT) 37 U/L (14-36); Albumin 3.9 g/dl (3.5-5.0); Alkaline Phosphatase 133 U/L (38-126); Direct Bilirubin 0.4 mg/dl (0.0-0.4); Total Bilirubin 1.4 mg/dl (0.2-1.3); Total Protein 6.5 g/dl (6.3-8.2)
--- NOTE | 2024-08-17 12:54 | PTCARENOTE ---
Pts home rytary and nuplazid placed with discharge paperwork to be given to transport team.
--- NOTE | 2024-08-17 13:37 | PTCARENOTE ---
RN attempted to call report to [facility], unable to take report at this time, voicemail left. RN awaiting call back. Care ongoing.
[2024-08-17 15:03] VITALS: BP 122/57
== END 2024-08-17 15:33 | DRG 522 ==
LOC: 2 SOUTH 16:30
PROVIDERS: ADMITTING PHYSICIAN Internal Medicine; ATTENDING PHYSICIAN Hospitalist; EMERGENCY PHYSICIAN Emergency Medicine; FAMILY PHYSICIAN Family Medicine; OTHER PHYSICIAN Specialist
PROC: 0SRS0J9 Replacement of Left Hip Joint, Femoral Surface with Synthetic Substitute, Cemented, Open Approach (ICD-10-PCS; 2024-08-15)
DX: S72.032A Displaced midcervical fracture of left femur, initial encounter for closed fracture (principal); R17 Unspecified jaundice; W01.0XXA Fall on same level from slipping, tripping and stumbling without subsequent striking against object, initial encounter; Z85.3 Personal history of malignant neoplasm of breast; G20.A1 Parkinson's disease without dyskinesia, without mention of fluctuations; M48.061 Spinal stenosis, lumbar region without neurogenic claudication; G89.29 Other chronic pain; K21.9 Gastro-esophageal reflux disease without esophagitis; Z88.0 Allergy status to penicillin; Z79.891 Long term (current) use of opiate analgesic; G62.9 Polyneuropathy, unspecified; E78.00 Pure hypercholesterolemia, unspecified; I25.10 Atherosclerotic heart disease of native coronary artery without angina pectoris; Z79.899 Other long term (current) drug therapy
CPT/HCPCS: 88305; 88311; 71045; 73502; 73552; 80053; 82248; 83615; 83880; 85025; 85027; 85045; 85610; 85730; 86850; 86900; 86901; 87070; 93005; 93922; 93925; 96374; 97163; 97167; 97530; 99285; C1713; C1776

== ENCOUNTER → 2024-08-22 12:00 | Outpatient (REF) | payer MEDICARE, SELFPAY ==
[2024-08-22 13:13] LABS: Hemoglobin 10.4 g/dL (12.0-16.0); Mean Corp Hgb Conc. 32.5 g/dL (33.0-37.0); Mean Corpuscular Hgb 32.1 pg (27.0-31.0); Mean Corpuscular Volume 98.8 fL (81.0-99.0); Platelet Count 212 10^3/uL (130-400); Red Blood Cell Count 3.24 10^6/uL (4.20-5.40); Red Cell Dist. Width 14.8 % (11.5-14.5); White Blood Cell Count 6.6 10^3/uL (4.8-10.8)
[2024-08-22 15:02] LABS: ALT (SGPT) 11 U/L (0-35); AST (SGOT) 25 U/L (14-36); Albumin 3.3 g/dl (3.5-5.0); Alkaline Phosphatase 124 U/L (38-126); Blood Urea Nitrogen 15 mg/dl (7-17); Calcium 8.8 mg/dl (8.4-10.2); Carbon Dioxide 27 mmol/L (22-30); Chloride 105 mmol/L (98-107); Glucose 88 mg/dl (70-99); Magnesium 2.1 mg/dl (1.6-2.3); Sodium 141 mmol/L (135-145); Total Bilirubin 1.1 mg/dl (0.2-1.3); Total Protein 5.6 g/dl (6.3-8.2); eGFR > 60.00
== END ==
LOC: OLABWHC 12:00
PROVIDERS: ATTENDING PHYSICIAN Family Medicine
DX: K21.9 Gastro-esophageal reflux disease without esophagitis (principal); E78.5 Hyperlipidemia, unspecified
CPT/HCPCS: 36415; 80053; 83735; 85027

== ENCOUNTER → 2024-08-25 10:07 | Outpatient (REF) | payer MEDICARE, SELFPAY ==
[2024-08-25 10:50] LABS: Hematocrit 30.1 % (37.0-47.0); Hemoglobin 9.6 g/dL (12.0-16.0); Mean Corp Hgb Conc. 31.9 g/dL (33.0-37.0); Mean Corpuscular Hgb 31.7 pg (27.0-31.0); Mean Corpuscular Volume 99.3 fL (81.0-99.0); Mean Platelet Volume 10.4 fL (7.4-10.4); Platelet Count 224 10^3/uL (130-400); Red Blood Cell Count 3.03 10^6/uL (4.20-5.40); Red Cell Dist. Width 15.1 % (11.5-14.5); White Blood Cell Count 5.9 10^3/uL (4.8-10.8)
[2024-08-25 11:31] LABS: ALT (SGPT) < 10 U/L (0-35); AST (SGOT) 23 U/L (14-36); Albumin 3.2 g/dl (3.5-5.0); Alkaline Phosphatase 127 U/L (38-126); Blood Urea Nitrogen 18 mg/dl (7-17); Calcium 8.9 mg/dl (8.4-10.2); Carbon Dioxide 26 mmol/L (22-30); Chloride 103 mmol/L (98-107); Glucose 83 mg/dl (70-99); Sodium 139 mmol/L (135-145); Total Bilirubin 1.1 mg/dl (0.2-1.3); Total Protein 5.5 g/dl (6.3-8.2); eGFR > 60.00
== END ==
LOC: OLABWHC 10:07
PROVIDERS: ATTENDING PHYSICIAN Family Medicine
DX: K21.9 Gastro-esophageal reflux disease without esophagitis (principal); G20.B1 Parkinson's disease with dyskinesia, without mention of fluctuations
CPT/HCPCS: 36415; 80053; 85027

== ENCOUNTER → 2024-08-29 10:23 | Outpatient (REF) | payer OTHER, MEDICARE, SELFPAY ==
[2024-08-29 10:49] LABS: Hemoglobin 9.6 g/dL (12.0-16.0); Mean Corp Hgb Conc. 33.1 g/dL (33.0-37.0); Mean Corpuscular Volume 96.7 fL (81.0-99.0); Mean Platelet Volume 10.7 fL (7.4-10.4); Platelet Count 254 10^3/uL (130-400); Red Cell Dist. Width 14.6 % (11.5-14.5); White Blood Cell Count 6.6 10^3/uL (4.8-10.8)
[2024-08-29 10:57] LABS: Blood Urea Nitrogen 19 mg/dl (7-17); Carbon Dioxide 29 mmol/L (22-30); Chloride 102 mmol/L (98-107); Glucose 77 mg/dl (70-99); Potassium 4.2 mmol/L (3.5-5.1); Sodium 139 mmol/L (135-145); eGFR > 60.00
== END ==
LOC: OLABWHC 10:23
PROVIDERS: ATTENDING PHYSICIAN Family Medicine
DX: Z79.82 Long term (current) use of aspirin (principal); R44.1 Visual hallucinations; M62.81 Muscle weakness (generalized)
CPT/HCPCS: 36415; 80048; 85027

== ENCOUNTER 2024-09-04 19:30 | Observation (INO) | payer MEDICARE, SELFPAY ==
[2024-09-04 14:50] VITALS: BP 114/62
[2024-09-04 15:00] VITALS: BP 123/95
--- NOTE | 2024-09-04 15:24 | ED.GENMED ---
History of Present Illness
General
Chief Complaint: Change in Mental Status
Source: patient and family
Exam Limitations: none
Time Seen by Provider: 09/04/24 15:23
Nursing documentation reviewed up to this point in time: agreed with
History of Present Illness
History of Present Illness:
84-year-old female with history of Parkinson's, chronic hallucinations, HLD, GERD, left breast cancer with lumpectomy, cholecystectomy, chronic pain/presents from [facility] with her who stays in another room at [facility]. Son and
daughter at bedside also. Family states that 3 days ago patient was 'fine' during lunch, awake alert and oriented. states patient was found sitting on the floor beside her bed 2 nights ago and did not sleep well that night. No obvious
injury or significant fall.
Family states that last week her hallucinations were becoming worse, seeing snakes on floor, kids running and PCP thought perhaps changing her amantadine from 3 times daily to twice daily would help. Family states they her hallucinations improved a
little until yesterday when she became more lethargic, has been mumbling nonsensically
Patient is oriented to place, year, month, answering questions appropriately but when not being spoken to she is intermittently mumbling incoherently.
Past History
Past History
ED Past Medical History: GERD, Hypercholesterolemia, Other (PD, Lumbar stenosis, chronic back pain, herniated disc, Parkinson's with hallucinations) and Other
ED Past Surgical History: Cholecystectomy and Orthopedic (Back surgery)
Social History
Tobacco: Non-smoker
Alcohol: None
Drug: None
Personal:
Living: correction ([facility])
Employment: Retired
Review of Systems
Review of Systems
Allergies reviewed?: Yes
Other source history: family
All Other Systems: ROS reviewed and negative except as documented in HPI and ROS
Constitutional: Reports fatigue; Denies fever
Respiratory: Denies trouble breathing
Cardiac: Denies chest pain
ABD/GI: Denies abdominal pain, nausea, vomiting or diarrhea
: Reports incontinence; Denies dysuria, frequency or difficulty voiding
Musculoskeletal: Reports back pain (chronic); Denies edema
Skin: Reports no symptoms
Neurological: Reports weakness (generalized); Denies headache
Phy Exam
Physical Exam
Physical Exam:
GENERAL: No acute distress. Drowsy, Ox3.
CONSTITUTIONAL: Afebrile.
EYES: clear, conjunctivae normal, not focusing on speaker
ENMT: dry mucus membranes
RESPIRATORY: Regular respirations, nonlabored, lungs clear.
CARDIOVASCULAR: Regular rate and rhythm, no murmurs, no rubs.
GI: Soft, nontender, normal BS
MUSCULOSKELETAL: Well perfused. No edema.
SKIN: Warm, dry, pale
PSYCH: Depressed mood and affect. Well kept, interactive and appropriate
NEUROLOGIC: Drowsy, oriented. No focal neurological deficits
Course
Orders/Labs/Results
Orders:
Orders
09/04/24 15:24
0.9% Sodium Chloride 500 ml [Nss] 500 ml IV BOLUS
09/04/24 15:27
Complete Blood Count/With Diff Urgent
Comprehensive Metabolic Panel Urgent
09/04/24 15:36
Straight cath- Treatment ONCE
09/04/24 16:40
Urinalysis Reflex To Culture Urgent
Date Specimen was Collected: 09/04/24
Time Specimen was Collected: 16:40
Urine Microscopic Reflex Cult Urgent
Urine Culture Urgent
MICHAEL Source: U
Specimen Description:
Date Specimen was Collected: 09/04/24
Time Specimen was Collected: 16:40
09/04/24 17:03
CT Head W/o Iv Contrast Urgent
Comment:
Reason For Exam: change in mental state
Abnormal Lab Results
09/04/24 09/04/24
15:27 16:40
RBC 3.53 L 10^6/uL
(4.20-5.40)
Hgb 11.2 L g/dL
(12.0-16.0)
Hct 34.2 L %
(37.0-47.0)
MCH 31.7 H pg
(27.0-31.0)
MCHC 32.7 L g/dL
(33.0-37.0)
MPV 10.5 H fL
(7.4-10.4)
Absolute Monos (auto) 0.9 H 10^3/uL
(0.1-0.6)
Lymphocytes % 16.5 L %
(20.5-51.1)
Monocytes % 11.0 H %
(1.7-9.3)
BUN 30 H mg/dl
(7-17)
Total Bilirubin 1.8 H mg/dl
(0.2-1.3)
Alkaline Phosphatase 158 H U/L
(38-126)
Urine Ketones 2+ A
(Negative)
Leukocyte Esterase Rfl 1+ A
(Negative)
Urine WBC (Reflex) 11-15 A /HPF
(0-5)
Urine Bacteria (Reflex) Moderate A
(Negative)
Urine Albumin (Reflex) 1+ A
(Neg - Trace)
09/04/24 15:27
09/04/24 15:27
Vital Signs
Initial and Last Documented VS:
Initial Vital Signs
Temp Pulse Resp BP Pulse Ox
97.3 F 77 18 114/62 98
09/04/24 14:50 09/04/24 14:50 09/04/24 14:50 09/04/24 14:50 09/04/24 14:50
Last Documented Vital Signs
Temp Pulse Resp BP Pulse Ox
97.3 F 77 22 123/95 98
09/04/24 14:50 09/04/24 15:00 09/04/24 15:00 09/04/24 15:00 09/04/24 14:50
MDM/Problems Addressed
Differential Diagnosis Includes:
Dehydration, UTI, CVA
MDM/Problems Addressed:
84-year-old female with history of Parkinson's, chronic hallucinations, HLD, GERD, left breast cancer with lumpectomy, cholecystectomy, chronic pain/presents from [facility] with her who stays in another room at [facility]. Son and
daughter at bedside also. Family states that 3 days ago patient was 'fine' during lunch, awake alert and oriented. states patient was found sitting on the floor beside her bed 2 nights ago and did not sleep well that night. No obvious
injury or significant fall.
Family states that last week her hallucinations were becoming worse, seeing snakes on floor, kids running and PCP thought perhaps changing her amantadine from 3 times daily to twice daily would help. Family states they her hallucinations improved a
little until yesterday when she became more lethargic, has been mumbling nonsensically
Patient is oriented to place, year, month, answering questions appropriately but when not being spoken to she is intermittently mumbling incoherently.
4:00 PM:
CBC with no clinically significant abnormality
CMP: BUN 30 otherwise unremarkable
5:00 PM:
u/a: May be early UTI culture pending.
6:30 PM:
Head CT radiology report read:
IMPRESSION:
1. Mild diffuse cerebral and cerebellar volume loss.
2. Mild periventricular white matter leukoaraiosis.
3. No CT evidence for acute intracranial hemorrhage or transcortical infarct.
Hospitalist notified of admission diagnosis: Acute change in mental state
*Critical Care Note
Total Time (30-74mins, 75-104mins- exclusive of procedures): Not Applicable
ED Attending Note
-
Portions of this chart may have been created with voice recognition software.� Occasional wrong word or��sound alike� substitutions may have occurred due to the inherent limitations of voice recognition software.
Discharge Plan
Departure
Patient Disposition: Admit
Date of Disposition: 09/04/24
Time of Disposition: 18:22
Admit to: Med/Surg
Presentation/result/management discussed w/ accepting MD/DO: Hospitalist
Condition: Fair
Discharge Problem:
Change in mental state, Parkinson disease
Prescriptions:
No Action
amantadine HCl 100 mg capsule
100 mg PO BID
docusate sodium [Colace] 100 mg Capsule
100 mg PO DAILY
gabapentin 100 mg capsule
100 mg PO TID
polyethylene glycol 3350 [Miralax] 17 gram Powder In Packet
17 g PO DAILYPRN PRN (Reason: constipation)
famotidine [Pepcid] 20 mg Tablet
20 mg PO DAILYPRN PRN (Reason: gerd)
pimavanserin 34 mg Capsule
34 mg PO NOON
sennosides [senna] 8.6 mg Tablet
17.2 mg PO BIDPRN PRN (Reason: constipation)
lidocaine 4 % Cream
1 applic TOPICAL Q4HPRN PRN (Reason: mild pain)
therapeutic multivitamin Tablet
1 tab PO DAILY
magnesium hydroxide [Milk of Magnesia] 400 mg/5 mL Suspension
2,400 mg PO HSPRN PRN (Reason: if no bm by 2nd day)
hydrocortisone [Preparation H Hydrocortisone] 1 % Cream
1 applic ND BIDPRN PRN (Reason: hemorrhoids)
Rytary 36.25-145 mg Capsule, Extended Release
1 cap PO TID
acetaminophen 325 mg tablet
650 mg PO Q6HPRN PRN (Reason: mild pain)
calcium carbonate-vitamin D3 [Oyster Shell Calcium-Vit D3] 500 mg-10 mcg (400 unit) Tablet
1 tab PO BID
aspirin 325 mg Tablet
325 mg PO DAILY Qty: 28 0RF
sennosides-docusate sodium 8.6-50 mg Tablet
1 tab PO BIDPRN PRN (Reason: constipation) Qty: 30 0RF
meloxicam [Mobic] 15 mg Tablet
15 mg PO DAILY
bisacodyl [Dulcolax (bisacodyl)] 10 mg Suppository
10 mg ND DAILYPRN PRN (Reason: if no bm by 3rd day)
Fleet Enema 19-7 gram/118 mL Enema
118 ml ND DAILYPRN PRN (Reason: if no bm by 4th day)
Referrals:
Milton Pierce MD [Family Provider] -
Interventions
Interventions:
*Risk Screen - Suicide Last Done: 09/04/24 14:56
*General Assessment Last Done: 09/04/24 15:15
*Neglect/Abuse Screening Last Done: 09/04/24 14:56
*ED- Fall Risk Assessment Last Done: 09/04/24 15:03
*ED COVID-19 Vaccine History Last Done: 09/04/24 15:03
ED- Neurological Assessment Last Done: 09/04/24 15:05
Discharge Date and Time
Print Language: LUXEMBOURGISH
[2024-09-04] MEDS: NSS 500 IV (15:28)
[2024-09-04 15:34] LABS: % Basophils 0.6 % (0-2); % Immature Granulocytes 0.4 % (0-0.5); % Lymphocytes 16.5 % (20.5-51.1); % Neutrophils 65.5 % (42.2-75.2); Absolute Basophils 0.1 10^3/uL (0-0.2); Absolute Eosinophils 0.5 10^3/uL (0-0.7); Absolute Lymphocytes 1.3 10^3/uL (1.2-3.4); Absolute Monocytes 0.9 10^3/uL (0.1-0.6); Absolute Neutrophils 5.3 10^3/uL (1.4-6.5); Hematocrit 34.2 % (37.0-47.0); Hemoglobin 11.2 g/dL (12.0-16.0); Mean Corp Hgb Conc. 32.7 g/dL (33.0-37.0); Mean Corpuscular Hgb 31.7 pg (27.0-31.0); Mean Corpuscular Volume 96.9 fL (81.0-99.0); Mean Platelet Volume 10.5 fL (7.4-10.4); Nucleated Red Blood Cells % 0 %; Platelet Count 276 10^3/uL (130-400); Red Blood Cell Count 3.53 10^6/uL (4.20-5.40); Red Cell Dist. Width 14.5 % (11.5-14.5); White Blood Cell Count 8.1 10^3/uL (4.8-10.8)
[2024-09-04 15:48] LABS: ALT (SGPT) < 10 U/L (0-35); AST (SGOT) 28 U/L (14-36); Albumin 3.9 g/dl (3.5-5.0); Alkaline Phosphatase 158 U/L (38-126); Blood Urea Nitrogen 30 mg/dl (7-17); Calcium 9.9 mg/dl (8.4-10.2); Carbon Dioxide 27 mmol/L (22-30); Chloride 102 mmol/L (98-107); Glucose 93 mg/dl (70-99); Potassium 4.4 mmol/L (3.5-5.1); Sodium 140 mmol/L (135-145); Total Bilirubin 1.8 mg/dl (0.2-1.3); Total Protein 6.7 g/dl (6.3-8.2); eGFR > 60.00
[2024-09-04 16:47] LABS: Urine Albumin 1+ (Neg - Trace); Urine Bilirubin Negative (Negative); Urine Character Clear (Clear); Urine Color Yellow; Urine Glucose Negative (Negative); Urine Ketone 2+ (Negative); Urine Leukocyte 1+ (Negative); Urine Nitrite Negative (Negative); Urine Occult Blood Negative (Negative); Urine Specific Gravity 1.025 (<1.030); Urine Urobilinogen Negative (Neg - 1+)
[2024-09-04 16:54] LABS: Urine Squamous Cell 16-20 /LPF (Few)
[2024-09-04 16:55] LABS: Urine Red Blood Cell 0-2 /HPF (0-2)
[2024-09-04 16:56] LABS: Urine Bacteria Moderate (Negative)
--- NOTE | 2024-09-04 18:39 | HPS.HSE ---
Family Physician
-
Family Physician: Milton Pierce MD
Chief Complaint
-
Altered mental status
History of Present Illness
This is a 84-year-old female with past medical history of breast cancer status post lumpectomy, Parkinson's disease, GERD, recent left femoral neck fracture status post left hemiarthroplasty on 08/15/2024 presenting to the emergency department with
episode of altered mental status over the last 3 days.
According to family members, patient was fine 3 days ago awake alert and oriented x 3 at that time. She has history of hallucinations. Over the last week the hallucinations appear to have been getting worse. She is seeing snakes on the floor he
is running and PCP told parents that changed amantadine from 3 times daily to twice daily will help. Patient reports that her hallucinations improved slightly until yesterday. Yesterday she was more lethargic and was mumbling nonsensically.
Family reports she had been having difficulty sleeping over the last 2 days. She went to bed at 8 PM and got about 1 AM and has been awake throughout the day. While she is awake she is intermittently confused and mumbles to self. They also report
that she has had decreased p.o. intake. No evidence of any diarrhea nausea or vomiting. She does not endorse any urinary symptoms specifically but states that she does have pain in that lower area.
In the emergency department she was afebrile, blood pressure was 123/95 with pulse of 72 satting 98% on room air. CBC was completely unremarkable stop electrolytes were normal. BUN/creatinine are notable for only slight elevation in BUN to 30 but
otherwise unremarkable. She has slight elevation in T. bili Nas 1.8 alk phos to 158 otherwise LFTs were normal.
Head CT shows no acute intracranial process.
Urinalysis was equivocal with negative leukocyte esterase and nitrites but she has few WBCs with bacteria and lots of squamous cells consistent with a contaminated sample.
Medical History
Past Medical History
Past Medical History: Reports Other
Additional Past Medical History:
Parkinson's
GERD
Breast cancer status post lumpectomy
Femoral fracture
Past Surgical History: Reports Cholecystectomy and Other
Additional Past Surgical History:
Left hip hemiarthroplasty 08/15/2024
Social History
Tobacco: Non-smoker
Alcohol: None
Drug: None
Family History
Family History: Not pertinent
Allergies / Home Medications
Allergies reflects when Allergies were last updated in [employer].
Home Medications with original date entered in [employer]
Allergy/Medication List:
Allergies
Allergy/AdvReac Type Severity Reaction Status Date / Time
naproxen Allergy Unknown Verified 06/14/24 01:56
Penicillins Allergy Swelling Verified 06/14/24 01:56
tramadol Allergy Nausea / Verified 06/14/24 01:56
Vomiting
zonisamide Allergy Unknown Verified 06/14/24 01:56
Home Medications
amantadine HCl 100 mg capsule 100 mg PO BID Neurological Condition 10/30/22
docusate sodium 100 mg capsule (Colace) 100 mg PO DAILY Constipation 10/30/22
gabapentin 100 mg capsule 100 mg PO TID Neurological Condition 10/30/22
famotidine 20 mg tablet (Pepcid) 20 mg PO DAILYPRN PRN gerd 05/19/24
pimavanserin 34 mg capsule 34 mg PO NOON Mental Health/Anxiety 05/19/24
polyethylene glycol 3350 17 gram oral powder packet (Miralax) 17 g PO DAILYPRN PRN constipation 05/19/24
acetaminophen 325 mg tablet 650 mg PO Q6HPRN PRN mild pain 07/29/24
carbidopa ER 36.25 mg-levodopa 145 mg capsule,extended release (Rytary) 1 cap PO TID PARKINSON 07/29/24
hydrocortisone 1 % topical cream (Preparation H Hydrocortisone) 1 applic VA BIDPRN PRN hemorrhoids 07/29/24
lidocaine 4 % topical cream 1 applic topical Q4HPRN PRN mild pain 07/29/24
magnesium hydroxide 400 mg/5 mL oral suspension (Milk of Magnesia) 2,400 mg PO HSPRN PRN if no bm by 2nd day 07/29/24
sennosides 8.6 mg tablet (senna) 17.2 mg PO BIDPRN PRN constipation 07/29/24
therapeutic multivitamin 1 tab PO DAILY Supplement 07/29/24
calcium 500 mg (as carbonate)-vitamin D3 10 mcg (400 unit) tablet (Oyster Shell Calcium-Vitamin D3) 1 tab PO BID Supplement 08/14/24
aspirin 325 mg tablet 325 mg PO DAILY #28 tabs 08/17/24
sennosides 8.6 mg-docusate sodium 50 mg tablet 1 tab PO BIDPRN PRN constipation #30 tabs 08/17/24
bisacodyl 10 mg rectal suppository (Dulcolax (bisacodyl)) 10 mg VA DAILYPRN PRN if no bm by 3rd day 09/04/24
meloxicam 15 mg tablet 15 mg PO DAILY 09/04/24
sodium phosphates 19 gram-7 gram/118 mL enema (Fleet Enema) 118 ml VA DAILYPRN PRN if no bm by 4th day 09/04/24
Review of Systems
-
History Source: Patient and Family
Constitutional: Reports Sleep Disturbance
EENT: Reports No Symptoms
Respiratory: Reports No Symptoms
Cardiac: Reports No Symptoms
Abdomen/GI: Reports No Symptoms
: Reports No Symptoms
Musculoskeletal: Reports No Symptoms
Skin: Reports No Symptoms
Neurological: Reports No Symptoms
Endocrine: Reports No Symptoms
Hematologic/Lymphatic: Reports No Symptoms
Psych: Reports No Symptoms
Physical Exam
Vital Signs
Vital Signs
Temp Pulse Resp BP Pulse Ox
97.3 F 77 22 123/95 98
09/04/24 14:50 09/04/24 15:00 09/04/24 15:00 09/04/24 15:00 09/04/24 14:50
Physical Exam
General: Well Developed, Well Nourished and No Apparent Distress
HEENT: NormoCephalic, Anicteric, Moist mucous membranes, Atraumatic and PERRLA
Respiratory: Clear
Cardiac: S1/S2 and Regular Rhythm
Breast: Deferred by me
GI: Soft, Non Tender, Non Distended and Normal Bowel Sounds
Rectal: Deferred by Provider
Genito-urinary: Deferred by me
Musculoskeletal: No Clubbing, No Cyanosis and Edema, Left Lower Extremity (1+ non-pitting edema)
Skin: Warm
Neuro: AO x 3 and Nonfocal/grossly intact
Hematologic/Lymphatic: No Lymphadenopathy
Psych: Agitated
Laboratory Results
-
09/04/24 15:27
09/04/24 15:27
Laboratory Results
Total Bilirubin 1.8 mg/dl (0.2-1.3) H 09/04/24 15:27
AST 28 U/L (14-36) 09/04/24 15:27
ALT < 10 U/L (0-35) 09/04/24 15:27
Alkaline Phosphatase 158 U/L (38-126) H 09/04/24 15:27
Data Reviewed
-
Lab Data: Labs Reviewed by me
Old Records: Reviewed
Impression/Plan
-
IMPRESSION:
84-year-old with history of Parkinson's disease on amantadine, recent femoral neck fracture status post left hip hemiarthroplasty who has been at rehab and has been ambulating with a walker comes into the emergency department with worsening
hallucinations, difficulty sleeping and agitation. Presentation is more consistent with agitation to me. She is somewhat sleepy but unable to fall asleep. He is alert and oriented x 3 intermittently. She knows her name place and year. She is
able to follow simple commands and is cooperative with that. She will often has nonsensical questions to family members. She is not endorsing hallucinations for me. Her amantadine was reduced to twice daily for concern for worsening
hallucinations.
PLAN:
1. Acute delirium -etiology of delirium is unclear at this time. Suspect dehydration and insomnia. UA is equivocal. CT of the head is negative. He has no other findings consistent with an acute infection. Will admit for continued evaluation as
below
� Admit to MedSurg/observation
� Repeat UA via her straight cath and reflex culture
�Chest x-ray
�COVID-19, influenza testing
- tsh, b12 testing
�Suspect dehydration, continue IV fluids with D5 normal saline
�Will start with melatonin at bedtime for sleep, will consider Seroquel read and Risperdal for agitation, if no improvement will consider psych consult
2. Parkinson's disease
�Continue Rytary
-Continue amantadine at current dose
Continue Neurontin at current dose and monitor
3. Hip surgery
-DVT study of the left lower extremity given edema which is likely related to recent surgery but cannot rule out DVT
�Pain control
DVT prophylaxis with Lovenox for now
Code Status - Full Code
[2024-09-04 19:17] VITALS: BP 105/66
[2024-09-04 19:43] LABS: COVID-19 Antigen Negative (Negative)
[2024-09-04 21:24] VITALS: BP 131/78; BMI 24.1
[2024-09-04] MEDS: MELATONIN 5 MG PO (22:22)
[2024-09-04] MEDS: NEURONTIN 100 MG PO (22:22)
[2024-09-04] MEDS: SYMMETREL 100 MG PO (22:22)
[2024-09-04 23:15] VITALS: BP 129/68
[2024-09-04] MEDS: D5/0.9% SODIUM CHLORIDE 1000 IV (23:22)
--- NOTE | 2024-09-05 03:43 | PTCARENOTE ---
pt transferred to on 09/04 approximately 2100. Pt pulled over from stretcher to bed. No c/o pain at time of admission. Pt continues to have hallucinations. pt oriented to room, safety measures in place, call carvalho within reach.
[2024-09-05 05:55] LABS: Urine Albumin Negative (Neg - Trace); Urine Bilirubin Negative (Negative); Urine Character Clear (Clear); Urine Color Yellow; Urine Glucose Negative (Negative); Urine Ketone 1+ (Negative); Urine Leukocyte 1+ (Negative); Urine Nitrite Negative (Negative); Urine Occult Blood Negative (Negative); Urine Specific Gravity 1.015 (<1.030); Urine Urobilinogen Negative (Neg - 1+); Urine pH 6.5 (5.0-9.0)
[2024-09-05 06:45] LABS: Ammonia < 9 umol/L (9-30)
[2024-09-05 06:57] LABS: Urine Bacteria Moderate (Negative); Urine Red Blood Cell 0-2 /HPF (0-2)
[2024-09-05 07:00] VITALS: BP 110/67
--- NOTE | 2024-09-05 07:10 | W.PN.HOSP.TC ---
Today's Communication/Plan
-
see a/p
Assessment / Plan
Assessment / Plan
Physical Exam
General: no acute distress, appears comfortable at this time
HEENT: NormoCephalic, Anicteric, Moist mucous membranes, Atraumatic and PERRLA
Respiratory: Clear
Cardiac: S1/S2 and Regular Rhythm
GI: Soft, Non Tender, Non Distended and Normal Bowel Sounds
Musculoskeletal: No Clubbing, No Cyanosis and Edema
Skin: Warm
Neuro: Sleeping but arousable oriented x3 following simple commands
Psych: Calm
84-year-old with history of Parkinson's disease on amantadine, recent femoral neck fracture status post left hip hemiarthroplasty who has been at rehab and has been ambulating with a walker comes into the emergency department with worsening
hallucinations, difficulty sleeping and agitation. Presentation is more consistent with agitation to me. She is somewhat sleepy but unable to fall asleep. He is alert and oriented x 3 intermittently. She knows her name place and year. She is
able to follow simple commands and is cooperative with that. She will often has nonsensical questions to family members. She is not endorsing hallucinations for me. Her amantadine was reduced to twice daily for concern for worsening
hallucinations.
PLAN:
1. Acute delirium -etiology of delirium is unclear at this time. Suspect dehydration and insomnia. UA is equivocal. CT of the head is negative. She has no other findings consistent with an acute infection.
� MedSurg/observation
�f/u urine cx
�Chest x-ray appreciated not suggestive of infection/pneumonia
�COVID-19, influenza neg
- tsh, b12 wnl
�started on bedtime melatonin, appears symptomatically improved since start
-IVF started d/t concern dehydration since completed, tolerating diet
2. Parkinson's disease
�home Rytary, Amantadine, Pimavanserin
Continue Neurontin at current dose and monitor
ativan prn agitation, avoid antipsychotics with hx Parkinson
3. Recent Left Hip replacement
-left lower extremity given edema which is likely related to recent surgery, Venous duplex neg for DVT
�Pain control
-Hip X-ray appreciated no acute complications
-Orthopedic eval appreciated
DVT prophylaxis Lovenox
Code Status - Full Code
Discussed with patient's family Anthony, son Laurel, and daughter My
I spent a total of 50 minutes with the patient or on the floor. More than 50% of this time involved counseling and coordination of care.
Anticipated Discharge: 24 - 48 hours
Subjective/Interval History
-
Date of Service: September 05, 2024
sleeping but arousable. Oriented x3. Hard of hearing. Follows simple commands.
Objective Data
-
Labs:
Laboratory Results
09/05/24
06:23
WBC Pending
Hgb Pending
Hct Pending
Plt Count Pending
Sodium Pending
Potassium Pending
Chloride Pending
Carbon Dioxide Pending
BUN Pending
Creatinine Pending
Glucose Pending
Calcium Pending
Vital Signs:
Vital Signs
Temp Pulse Resp BP Pulse Ox
98.0 F 79 16 129/68 97
09/04/24 23:15 09/04/24 23:15 09/04/24 23:15 09/04/24 23:15 09/04/24 23:15
[2024-09-05] MEDS: NEURONTIN 100 MG PO ×3 (07:25→21:24)
[2024-09-05] MEDS: OSCAL 500 + D 500 MG PO ×2 (07:25→19:22)
[2024-09-05] MEDS: SYMMETREL 100 MG PO ×2 (07:25→19:22)
[2024-09-05] MEDS: MOBIC 15 MG PO (07:25)
[2024-09-05] MEDS: THERAGRAN 1 TABLET PO (07:25)
[2024-09-05] MEDS: COLACE 100 MG PO (07:26)
[2024-09-05 08:25] LABS: Hematocrit 30.6 % (37.0-47.0); Mean Corp Hgb Conc. 32.7 g/dL (33.0-37.0); Mean Corpuscular Hgb 31.7 pg (27.0-31.0); Mean Corpuscular Volume 97.1 fL (81.0-99.0); Mean Platelet Volume 10.7 fL (7.4-10.4); Platelet Count 246 10^3/uL (130-400); Red Blood Cell Count 3.15 10^6/uL (4.20-5.40); Red Cell Dist. Width 14.5 % (11.5-14.5); Reticulocyte Count 2.2 % (0.4-2.8); White Blood Cell Count 7.7 10^3/uL (4.8-10.8)
[2024-09-05 09:17] LABS: Blood Urea Nitrogen 17 mg/dl (7-17); Calcium 8.8 mg/dl (8.4-10.2); Carbon Dioxide 26 mmol/L (22-30); Chloride 107 mmol/L (98-107); Direct Bilirubin 0.3 mg/dl (0.0-0.4); Estimated Creatinine Clearance 51 ml/min; Glucose 97 mg/dl (70-99); LDH 297 U/L (120-246); Magnesium 2.2 mg/dl (1.6-2.3); Potassium 3.9 mmol/L (3.5-5.1); Sodium 141 mmol/L (135-145); eGFR > 60.00
--- NOTE | 2024-09-05 09:40 | W.PN.UPDATE ---
Update Note
Progress Note Update
Courtesy consult placed. Patient is 3 weeks from left hip hemiarthroplasty ([facility] 15 August 2024). was readmitted for change in MS. Initial questioning at the time of evaluation reveals her to be reasonably oriented. she knows her name, where she
currently is, and the name of our president. she was a little confused on the day of the week. She does not complain of any left hip pain. Afeb. WBC WNL. Directed exam of the left hip reveals a vertical scar over the posterior lateral thigh. A few
Steri-Strips remain. Mild edema. No ecchymosis. No erythema or drainage. Very mild discomfort generally about the hip. Negative logroll LLE. With straightening of the leg it appears equal in length to the RLE. Will order some plain
radiographs as a formality. Continue treatment per the primary medical team. If able and safe PT/OT could be beneficial. continue ASA for DVT PPx or per the primary team. we will follow-up on x-rays when complete
[2024-09-05 09:41] LABS: TSH 4.05 uIU/ml (0.47-4.68)
[2024-09-05 10:00] LABS: Vitamin B12 844 pg/ml (239-931)
[2024-09-05] MEDS: D5/0.9% SODIUM CHLORIDE 1000 IV (10:45)
[2024-09-05] MEDS: NON-FORMULARY ITEM 34 MG PO (12:39)
[2024-09-05 15:00] VITALS: BP 115/60
--- NOTE | 2024-09-05 15:13 | CM ---
Patient resting, family at bedside. Initial assessment completed. Recent admission (08/14-08/17), d/c to [facility] rehab.
Patient is a 84-year-old female with past medical history of breast cancer status post lumpectomy, Parkinson's disease, GERD, recent left femoral neck fracture status post left hemiarthroplasty on 08/15/2024 presenting to the emergency department with
episode of altered mental status over the last 3 days.
Patient resides at [facility]. Patient uses RW to ambulate, is assisted w/ dressing, bathing and toileting. Recently admitted to [facility] rehab, prev hx at [facility] and [facility]. [facility] rehab in the past.
Address, points of contact and insurance verified
PCP: Milton Pierce
Pharmacy: [facility]
Patient currently admitted as obs. HOLLIS form verbally reviewed, copy given to family, copy on chart
Family anticipating patient d/c back to [facility] rehab to resume therapy
Plan: Return to [facility]
[2024-09-05] MEDS: NON-FORMULARY ITEM 1 CAP PO ×2 (15:40→21:44)
[2024-09-05] MEDS: LOVENOX 40 MG SC (17:26)
[2024-09-05] MEDS: MELATONIN 5 MG PO (21:23)
[2024-09-05 23:00] VITALS: BP 102/51
[2024-09-06 07:44] VITALS: BP 124/51
--- NOTE | 2024-09-06 08:11 | W.PN.HOSP.TC ---
Today's Communication/Plan
-
discharge
Assessment / Plan
Assessment / Plan
Physical Exam
General: no acute distress, appears comfortable at this time
HEENT: NormoCephalic, Anicteric, Moist mucous membranes, Atraumatic and PERRLA
Respiratory: Clear
Cardiac: S1/S2 and Regular Rhythm
GI: Soft, Non Tender, Non Distended and Normal Bowel Sounds
Musculoskeletal: No Clubbing, No Cyanosis and Edema
Skin: Warm
Neuro: AOx3 conversant coherent
Psych: Calm
84-year-old with history of Parkinson's disease on amantadine, recent femoral neck fracture status post left hip hemiarthroplasty who has been at rehab and has been ambulating with a walker comes into the emergency department with worsening
hallucinations, difficulty sleeping and agitation. Presentation is more consistent with agitation to me. She is somewhat sleepy but unable to fall asleep. He is alert and oriented x 3 intermittently. She knows her name place and year. She is
able to follow simple commands and is cooperative with that. She will often has nonsensical questions to family members. She is not endorsing hallucinations for me. Her amantadine was reduced to twice daily for concern for worsening
hallucinations.
PLAN:
1. Acute delirium possibly due to sleep deprivation since resolved with melatonin as below
� MedSurg/observation
�urine cx no significant growth
�Chest x-ray appreciated not suggestive of infection/pneumonia
�COVID-19, influenza neg
- tsh, b12 wnl
�started on bedtime melatonin, appears symptomatically improved since start, switching to as needed on discharge
-IVF started d/t concern dehydration since completed, tolerating diet
2. Parkinson's disease
�home Rytary, Amantadine, Pimavanserin
Continue Neurontin at current dose and monitor
ativan prn agitation (has not required), avoid antipsychotics with hx Parkinson
Patient's family looking to change Neurologist. Referral provided on discharge.
3. Recent Left Hip replacement
-left lower extremity given edema which is likely related to recent surgery, Venous duplex neg for DVT
�Pain control
-Hip X-ray appreciated no acute complications
-Orthopedic eval appreciated
DVT prophylaxis Lovenox
Code Status - Full Code
Medically stable for discharge back to SNF rehab with outpatient follow up recommendations.
Discussed with patient's family Anthony and son Laurel
Total Time Preparing Discharge __40 minutes including examination of the patient, summary of the hospital stay, instructions for continuing care to all relevant caregivers; and preparation of discharge records, prescriptions, and referral
forms if necessary.
Anticipated Discharge: Today
Subjective/Interval History
-
Date of Service: September 06, 2024
Seen and examined at bedside in no acute distress sitting up comfortably in chair. overall reports feeling well. AOx3 conversant coherent. Cognizant that she was confused previously a few days ago.
Objective Data
-
Vital Signs:
Vital Signs
Temp Pulse Resp BP Pulse Ox
98.5 F 69 18 124/51 95
09/06/24 07:44 09/06/24 07:44 09/06/24 07:44 09/06/24 07:44 09/06/24 07:44
I&O
09/05/24 09/06/24 09/07/24
06:59 06:59 06:59
Intake Total 1480 / 1480
Balance 1480 / 1480
[2024-09-06] MEDS: COLACE 100 MG PO (08:36)
[2024-09-06] MEDS: MOBIC 15 MG PO (08:36)
[2024-09-06] MEDS: NEURONTIN 100 MG PO ×2 (08:36→15:04)
[2024-09-06] MEDS: SYMMETREL 100 MG PO (08:36)
[2024-09-06] MEDS: THERAGRAN 1 TABLET PO (08:36)
[2024-09-06] MEDS: OSCAL 500 + D 500 MG PO (08:36)
[2024-09-06] MEDS: NON-FORMULARY ITEM 1 CAP PO ×2 (08:43→15:04)
[2024-09-06 11:17] VITALS: BP 89/50
[2024-09-06 11:18] VITALS: BP 89/57
[2024-09-06] MEDS: NON-FORMULARY ITEM 1 MG PO (11:37)
--- NOTE | 2024-09-06 14:27 | W.DCSUMMARY ---
Discharge Summary
Discharge Data
Date of Admission: 09/04/24
Date of Discharge: 09/06/24
-
Pending Results: No
Hospital Course
84F Parkinson's disease on amantadine, recent femoral neck fracture status post left hip hemiarthroplasty who has been at rehab, ambulating with a walker comes into the emergency department with worsening hallucinations, difficulty sleeping and
agitation. Her amantadine was recently reduced to twice daily for concern worsening hallucinations. Acute delirium possibly due to sleep deprivation since resolved with melatonin as below. Urine cx no significant growth. Chest x-ray appreciated,
not suggestive of infection/pneumonia. COVID-19, influenza neg. tsh, b12 wnl. Started on bedtime melatonin, appeared symptomatically improved since start, switched to as needed on discharge. IVF started d/t concern dehydration since completed,
tolerated diet. Parkinson's disease, home Rytary, Amantadine, and Pimavanserin continued.
Home Neurontin continued. Ativan prn agitation (has not required), avoided antipsychotics with hx Parkinson. Patient's family looking to change Neurologist. Referral provided on discharge. Recent Left Hip replacement, left lower extremity given
edema which was likely related to recent surgery, Venous duplex neg for DVT. Hip X-ray appreciated no acute complications. Orthopedic eval appreciated. Medically stable, pt was discharged back to SNF rehab with outpatient follow up
recommendations.
Discharge Plan
-
Patient Disposition: Usp/SNF
Discharge Diagnosis/Procedures: Acute delirium possibly due to sleep deprivation since resolved
Parkinson's disease
Recent Left Hip replacement
Condition: Fair
Diet: Regular
Activity: With assistance, As tolerated and With Walker
Driving Restrictions: Not until seen by your Dr
Bathing Restrictions: None
Blood Work: Repeat CMP and LDH with primary care provider in 1 week of discharge, follow up mild elevation Bilirubin, ALP, and LDH unclear significance
Other Services: PT and OT
Activity Restrictions/Additional Instructions:
Please follow up with primary care provider in 1 week of discharge and neurology in 2-4 weeks of discharge.
Melatonin prescribed as needed for sleep.
Please take medications as prescribed/recommended and follow up with primary care provider and/or other healthcare provider involved in your care for refills and/or further adjustment to your medication regimen as necessary.
Referrals:
Ravindra Friedman MD [Active] - in two to four weeks
Milton Pierce MD [Family Provider] - in one week
Prescriptions:
New
melatonin 5 mg Tablet
5 mg PO HS PRN (Reason: Sleep) Qty: 7 0RF
Continued
amantadine HCl 100 mg capsule
100 mg PO BID
docusate sodium [Colace] 100 mg Capsule
100 mg PO DAILY
gabapentin 100 mg capsule
100 mg PO TID
polyethylene glycol 3350 [Miralax] 17 gram Powder In Packet
17 g PO DAILYPRN PRN (Reason: constipation)
famotidine [Pepcid] 20 mg Tablet
20 mg PO DAILYPRN PRN (Reason: gerd)
pimavanserin 34 mg Capsule
34 mg PO NOON
lidocaine 4 % Cream
1 applic TOPICAL Q4HPRN PRN (Reason: mild pain)
therapeutic multivitamin Tablet
1 tab PO DAILY
magnesium hydroxide [Milk of Magnesia] 400 mg/5 mL Suspension
2,400 mg PO HSPRN PRN (Reason: if no bm by 2nd day)
hydrocortisone [Preparation H Hydrocortisone] 1 % Cream
1 applic [place] BIDPRN PRN (Reason: hemorrhoids)
Rytary 36.25-145 mg Capsule, Extended Release
1 cap PO TID
acetaminophen 325 mg tablet
650 mg PO Q6HPRN PRN (Reason: mild pain)
calcium carbonate-vitamin D3 [Oyster Shell Calcium-Vit D3] 500 mg-10 mcg (400 unit) Tablet
1 tab PO BID
aspirin 325 mg Tablet
325 mg PO DAILY Qty: 28 0RF
sennosides-docusate sodium 8.6-50 mg Tablet
1 tab PO BIDPRN PRN (Reason: constipation) Qty: 30 0RF
meloxicam 15 mg Tablet
15 mg PO DAILY
bisacodyl [Dulcolax (bisacodyl)] 10 mg Suppository
10 mg [place] DAILYPRN PRN (Reason: if no bm by 3rd day)
Fleet Enema 19-7 gram/118 mL Enema
118 ml [place] DAILYPRN PRN (Reason: if no bm by 4th day)
Discontinued
sennosides [senna] 8.6 mg Tablet
17.2 mg PO BIDPRN PRN (Reason: constipation)
Discharge Orders:
Discharge Patient (As Directed); Ordered 09/06/24
Ordered By: Sammy Pereira
Discharge Date and Time
Discharge Date/Time: 09/06/24 17:56
Print Language: J[place]
--- NOTE | 2024-09-06 14:45 | CM ---
Addendum entered by Unique Bertrand 09/06/24 15:27:
Referral sent to [facility].
Original Note:
Chart reviewed and patient to return to [facility] today, patient to transfer by ambulance, patient's spouse aware of plan, and admissions at [facility] have a bed for patient today.
[facility]
Report [phone]

Plan; Patient to transfer to [facility] today.
[2024-09-06 15:10] VITALS: BP 113/64
== END 2024-09-06 17:56 ==
LOC: 4 WEST ACU 19:30
PROVIDERS: Registered Nurse; ADMITTING PHYSICIAN Internal Medicine; ATTENDING PHYSICIAN Internal Medicine; EMERGENCY PHYSICIAN Student in an Organized Health Care Education/Training Program; FAMILY PHYSICIAN Family Medicine
DX: R44.3 Hallucinations, unspecified (principal); G20.A1 Parkinson's disease without dyskinesia, without mention of fluctuations; E86.0 Dehydration; R41.82 Altered mental status, unspecified; Z79.1 Long term (current) use of non-steroidal anti-inflammatories (NSAID); Z96.642 Presence of left artificial hip joint; C50.919 Malignant neoplasm of unspecified site of unspecified female breast; J98.11 Atelectasis; M16.11 Unilateral primary osteoarthritis, right hip; K21.9 Gastro-esophageal reflux disease without esophagitis; R45.1 Restlessness and agitation; Z72.820 Sleep deprivation; R60.0 Localized edema
CPT/HCPCS: 70450; 71046; 73502; 80048; 80053; 81003; 81015; 82140; 82248; 82607; 83615; 83735; 84443; 85025; 85027; 85045; 87070; 87086; 87502; 87811; 93971; 96360; 97163; 97167; 99285; G0378

== ENCOUNTER → 2024-09-14 10:07 | Outpatient (REF) | payer OTHER, MEDICARE, SELFPAY ==
[2024-09-14 10:59] LABS: Hematocrit 32.9 % (37.0-47.0); Hemoglobin 10.6 g/dL (12.0-16.0); Mean Corp Hgb Conc. 32.2 g/dL (33.0-37.0); Mean Corpuscular Hgb 31.3 pg (27.0-31.0); Mean Corpuscular Volume 97.1 fL (81.0-99.0); Mean Platelet Volume 11.1 fL (7.4-10.4); Platelet Count 244 10^3/uL (130-400); Red Blood Cell Count 3.39 10^6/uL (4.20-5.40); Red Cell Dist. Width 14.4 % (11.5-14.5); White Blood Cell Count 6.6 10^3/uL (4.8-10.8)
[2024-09-14 11:36] LABS: ALT (SGPT) < 10 U/L (0-35); AST (SGOT) 22 U/L (14-36); Albumin 3.6 g/dl (3.5-5.0); Alkaline Phosphatase 132 U/L (38-126); Blood Urea Nitrogen 22 mg/dl (7-17); Calcium 9.5 mg/dl (8.4-10.2); Carbon Dioxide 26 mmol/L (22-30); Chloride 104 mmol/L (98-107); Glucose 80 mg/dl (70-99); Potassium 4.2 mmol/L (3.5-5.1); Sodium 139 mmol/L (135-145); Total Bilirubin 0.7 mg/dl (0.2-1.3); Total Protein 6.1 g/dl (6.3-8.2); eGFR > 60.00
[2024-09-14 11:54] LABS: LDH 229 U/L (120-246)
== END ==
LOC: OLABWHC 10:07
PROVIDERS: ATTENDING PHYSICIAN Family Medicine
DX: E80.6 Other disorders of bilirubin metabolism (principal); E44.0 Moderate protein-calorie malnutrition; S72.032D Displaced midcervical fracture of left femur, subsequent encounter for closed fracture with routine healing; E78.5 Hyperlipidemia, unspecified
CPT/HCPCS: 36415; 80053; 83615; 85027

== ENCOUNTER → 2024-10-24 11:59 | Outpatient (REF) | payer MEDICARE, SELFPAY ==
[2024-10-24 13:17] LABS: % Eosinophils 7.5 % (0-6); % Immature Granulocytes 0.3 % (0-0.5); % Lymphocytes 45.9 % (20.5-51.1); % Monocytes 10.1 % (1.7-9.3); % Neutrophils 35.2 % (42.2-75.2); Absolute Basophils 0.1 10^3/uL (0-0.2); Absolute Eosinophils 0.5 10^3/uL (0-0.7); Absolute Lymphocytes 2.9 10^3/uL (1.2-3.4); Absolute Monocytes 0.6 10^3/uL (0.1-0.6); Absolute Neutrophils 2.2 10^3/uL (1.4-6.5); Hematocrit 33.1 % (37.0-47.0); Hemoglobin 10.7 g/dL (12.0-16.0); Mean Corp Hgb Conc. 32.3 g/dL (33.0-37.0); Mean Corpuscular Hgb 30.5 pg (27.0-31.0); Mean Corpuscular Volume 94.3 fL (81.0-99.0); Mean Platelet Volume 11.2 fL (7.4-10.4); Nucleated Red Blood Cells % 0 %; Platelet Count 250 10^3/uL (130-400); Red Blood Cell Count 3.51 10^6/uL (4.20-5.40); Red Cell Dist. Width 14.6 % (11.5-14.5); White Blood Cell Count 6.3 10^3/uL (4.8-10.8)
[2024-10-24 13:35] LABS: ALT (SGPT) 12 U/L (0-35); AST (SGOT) 27 U/L (14-36); Albumin 4.3 g/dl (3.5-5.0); Alkaline Phosphatase 106 U/L (38-126); Blood Urea Nitrogen 14 mg/dl (7-17); Calcium 9.9 mg/dl (8.4-10.2); Carbon Dioxide 25 mmol/L (22-30); Chloride 108 mmol/L (98-107); Glucose 91 mg/dl (70-99); Potassium 4.3 mmol/L (3.5-5.1); Sodium 140 mmol/L (135-145); Total Bilirubin 0.8 mg/dl (0.2-1.3); eGFR > 60.00
== END ==
LOC: OLABPATH 11:59
PROVIDERS: ATTENDING PHYSICIAN Internal Medicine
DX: R26.89 Other abnormalities of gait and mobility (principal); E80.6 Other disorders of bilirubin metabolism; G20.C Parkinsonism, unspecified
CPT/HCPCS: 36415; 80053; 85025

== ENCOUNTER → 2024-12-06 13:00 | Outpatient (REF) | payer MEDICARE, SELFPAY ==
[2024-12-06 17:37] LABS: Urine Character Clear (Clear)
[2024-12-06 17:51] LABS: Urine Red Blood Cell 0-2 /HPF (0-2); Urine Squamous Cell >30 /LPF (Few)
[2024-12-06 17:52] LABS: Urine White Cell 50-60 /HPF (0-5)
== END ==
LOC: OLABPATH 13:00
PROVIDERS: ATTENDING PHYSICIAN Internal Medicine
DX: E44.0 Moderate protein-calorie malnutrition (principal); E78.5 Hyperlipidemia, unspecified; N39.0 Urinary tract infection, site not specified
CPT/HCPCS: 81003; 81015; 87077; 87086; 87186

== ENCOUNTER → 2025-01-25 11:49 | Outpatient (REF) | payer MEDICARE, SELFPAY ==
[2025-01-25 12:38] LABS: Hematocrit 37.7 % (37.0-47.0); Hemoglobin 12.0 g/dL (12.0-16.0); Mean Corp Hgb Conc. 31.8 g/dL (33.0-37.0); Mean Corpuscular Volume 92.9 fL (81.0-99.0); Nucleated Red Blood Cells % 0 %; Platelet Count 240 10^3/uL (130-400); Red Cell Dist. Width 15.4 % (11.5-14.5)
[2025-01-25 13:53] LABS: ALT (SGPT) 16 U/L (0-35); AST (SGOT) 22 U/L (14-36); Albumin 4.4 g/dl (3.5-5.0); Alkaline Phosphatase 121 U/L (38-126); Blood Urea Nitrogen 17 mg/dl (7-17); Calcium 9.6 mg/dl (8.4-10.2); Carbon Dioxide 26 mmol/L (22-30); Chloride 106 mmol/L (98-107); Glucose 120 mg/dl (70-99); Potassium 4.2 mmol/L (3.5-5.1); Sodium 141 mmol/L (135-145); Total Protein 7.6 g/dl (6.3-8.2); eGFR > 60.00
== END ==
LOC: OLABPATH 11:49
PROVIDERS: ATTENDING PHYSICIAN Internal Medicine
DX: M54.31 Sciatica, right side (principal); R26.89 Other abnormalities of gait and mobility
CPT/HCPCS: 36415; 80053; 85025

== ENCOUNTER → 2025-04-10 16:41 | Outpatient (REF) | payer MEDICARE, SELFPAY ==
[2025-04-10 18:01] LABS: Urine Character Clear (Clear)
== END ==
LOC: OLABPATH 16:41
PROVIDERS: ATTENDING PHYSICIAN Internal Medicine
DX: M54.31 Sciatica, right side (principal); R26.89 Other abnormalities of gait and mobility; N39.0 Urinary tract infection, site not specified
CPT/HCPCS: 81003

== ENCOUNTER 2025-05-10 18:53 | Emergency (ER) | payer MEDICARE, SELFPAY ==
[2025-05-10 19:03] VITALS: BP 148/85
--- NOTE | 2025-05-10 19:59 | ED.GENMED ---
History of Present Illness
General
Chief Complaint: Fall
Source: patient
Exam Limitations: none
Time Seen by Provider: 05/10/25 19:43
Nursing documentation reviewed up to this point in time: agreed with
History of Present Illness
History of Present Illness:
Note:
CHIEF COMPLAINT(S)
Fall with subsequent hip pain.
HISTORY OF PRESENT ILLNESS
The patient is an 85-year-old female with a history of GERD, hyperlipidemia, Parkinson's disease, who presents to the ER today with concerns of hip pain and shoulder pain following a fall. She has prior history of of hip surgery. She presented with
pain following a fall while trying to grab something from a shelf in the bathroom.. At that time, she was standing in front of the sink. She fell backwards, falling onto her buttocks and subsequently hitting her head. After the fall, she was
unable to stand up by herself and required assistance from her to move. She attempted to walk but experienced some pain in her hip, which inhibited further movement. The patient describes the pain primarily in the left hip, extending upwards
towards the leg, and notes no swelling or discoloration in the affected area. S she denies any shortness of breath, ankle pain, abdominal pain, headache, neck pain. She denies any back pain. She is requesting Tylenol for pain. She not lose
consciousness. She denies any dizziness or lightheadedness. The patient has an existing condition involving her knee for which she receives steroid injections.
PAST MEDICAL AND SURGICAL HISTORY
- Hip surgery (side not specified).
- Knee problems treated with steroid injections.
[employer]MIN[employer]S OF HE[employer]
The patient lives with her and required his assistance after the fall, indicating a reliance on family support.
[facility] lives at [facility]
PHYSICAL EXAM
Nursing notes reviewed and vital signs reviewed.
General: Patient is well appearing and in no acute distress; non-toxic
Skin: Warm and dry, no rashes or lesions
Head: Normocephalic, atraumatic
Eyes: Sclera non-icteric. EOMs intact. PERRLA.
Cardiac: Regular rate and rhythm, no murmurs
Peripheral Vascular: No lower extremity swelling or edema
Pulm: Normal respiratory effort, no wheezes, rales, or rhonchi
Abdomen: No abdominal tenderness to palpation
Musculoskeletal: Mild tenderness palpation of the left lateral hip. Full range of motion. No pain with internal/external rotation. No visible bony deformity. Mild tenderness noted with flexion of the left knee. No swelling or overlying
ecchymosis. No midline cervical spinal tenderness.
Neuro: CN II-XII intact, no focal neurologic deficits.
Psychiatric: Appropriate mood and affect.
PLAN
- Administer acetaminophen for pain management.
- Evaluating the need for further orthopedic consultation due to the hip pain post-fall.
- Consider imaging of the hip to assess any fractures, given symptoms and past surgical history.
DIFFERENTIAL DIAGNOSIS
The Differential Diagnosis includes, in no particular order and is not limited to:
- Hip contusion
- Hip fracture
- Soft tissue injury
- Muscle strain
- Arthritis exacerbation
- Rotator cuff injury
- Cervical strain
- Vertebral compression fracture
- Intracranial injury
- Rib contusion
SUMMARY OF ENCOUNTER
The patient, an 85-year-old female, was evaluated due to left hip pain following a fall. She hit her head during the fall. She not lose consciousness. She attempted to ambulate but experienced significant pain, preventing her from walking. On
physical exam she is well-appearing no acute distress. She is some tenderness to palpation of the left knee but otherwise good range of motion. She has no signs of head trauma on exam, no edema, no hematoma. No lacerations.
Shoulder, knee, hip x-rays without acute fracture or dislocation. Suspect left hip contusion. CT of the head shows no acute intracranial abnormality. Cervical spine CT shows degenerative changes but no cervical spine fracture. Patient feels well
enough to go home. Patient stable for discharge. Discussed tricked return precautions.
DISPOSITION
To be determined based on imaging results and evaluation of pain management response.
ASSESSMENT
Left hip pain post-fall with possible contusion or fracture; exacerbation of pre-existing knee issues; left shoulder pain; back of the head discomfort possibly due to impact during fall.
EMERGENCY TREATMENTS ADMINISTERED
- Acetaminophen for pain relief.
DIAGNOSIS
- Hip contusion or fracture, unspecified (ICD-10: S79.91XA)
- Unspecified fall (ICD-10: W19.XXXA)
Past History
Past History
ED Past Medical History: GERD, Hypercholesterolemia, Other (PD, Lumbar stenosis, chronic back pain, herniated disc, Parkinson's with hallucinations) and Other
ED Past Surgical History: Cholecystectomy and Orthopedic (Back surgery)
Social History
Tobacco: Non-smoker
Alcohol: None
Drug: None
Personal:
Living: jail ([place])
Employment: Retired
Phy Exam
Physical Exam
Physical Exam:
see hpi
Course
Orders/Labs/Results
Orders:
Orders
05/10/25 19:10
CT Cervical Spine W/o Iv Contr Urgent
Comment:
Reason For Exam: head injury
CT Head W/o Iv Contrast Urgent
Comment:
Reason For Exam: head injury
05/10/25 19:12
Hip, Left 2-3 Views [CR Hip - LT w/wo Pel 2-3 Vw*] Urgent
Comment:
Reason For Exam: fall pain
Include a pelvis x-ray?: Yes
05/10/25 19:57
Knee, Left 4 or More Views [CR Knee - Left 4 Or More View*] Urgent
Comment:
Reason For Exam: fall/pain
05/10/25 21:36
CR Shoulder, Trauma - Left Urgent
Reason For Exam: injury
05/10/25 22:05
Acetaminophen [Tylenol] 1,000 mg PO NOW STA
Vital Signs
Initial and Last Documented VS:
Initial Vital Signs
Temp Pulse Resp BP Pulse Ox
97.4 F 82 16 148/85 95
05/10/25 19:03 05/10/25 19:03 05/10/25 19:03 05/10/25 19:03 05/10/25 19:03
Last Documented Vital Signs
Temp Pulse Resp BP Pulse Ox
97.4 F 74 18 160/81 95
05/10/25 19:03 05/10/25 22:30 05/10/25 22:30 05/10/25 22:30 05/10/25 22:30
*Pulse Oximetry
SaO2: 95
Oxygen Mode of Delivery: Room air
Patient hypoxic: no
*Critical Care Note
Total Time (30-74mins, 75-104mins- exclusive of procedures): Not Applicable
ED Attending Note
-
Portions of this chart may have been created with voice recognition software.� Occasional wrong word or��sound alike� substitutions may have occurred due to the inherent limitations of voice recognition software.
Discharge Plan
Departure
Patient Disposition: Home (Routine Discharge)
Date of Disposition: 05/10/25
Time of Disposition: 22:10
Patient with high blood pressure during this ER visit?: Yes
Condition: Good
Discharge Problem:
Fall, Contusion of hip
Instructions: Preventing falls in adults, BLOOD PRESSURE
Prescriptions:
No Action
amantadine HCl 100 mg capsule
100 mg PO BID
docusate sodium [Colace] 100 mg Capsule
100 mg PO DAILY
gabapentin 100 mg capsule
100 mg PO TID
polyethylene glycol 3350 [Miralax] 17 gram Powder In Packet
17 g PO DAILYPRN PRN (Reason: constipation)
famotidine [Pepcid] 20 mg Tablet
20 mg PO DAILYPRN PRN (Reason: gerd)
pimavanserin 34 mg Capsule
34 mg PO NOON
lidocaine 4 % Cream
1 applic TOPICAL Q4HPRN PRN (Reason: mild pain)
therapeutic multivitamin Tablet
1 tab PO DAILY
magnesium hydroxide [Milk of Magnesia] 400 mg/5 mL Suspension
2,400 mg PO HSPRN PRN (Reason: if no bm by 2nd day)
hydrocortisone [Preparation H Hydrocortisone] 1 % Cream
1 applic [place] BIDPRN PRN (Reason: hemorrhoids)
Rytary 36.25-145 mg Capsule, Extended Release
1 cap PO TID
acetaminophen 325 mg tablet
650 mg PO Q6HPRN PRN (Reason: mild pain)
calcium carbonate-vitamin D3 [Oyster Shell Calcium-Vit D3] 500 mg-10 mcg (400 unit) Tablet
1 tab PO BID
aspirin 325 mg Tablet
325 mg PO DAILY Qty: 28 0RF
sennosides-docusate sodium 8.6-50 mg Tablet
1 tab PO BIDPRN PRN (Reason: constipation) Qty: 30 0RF
meloxicam 15 mg Tablet
15 mg PO DAILY
bisacodyl [Dulcolax (bisacodyl)] 10 mg Suppository
10 mg [place] DAILYPRN PRN (Reason: if no bm by 3rd day)
Fleet Enema 19-7 gram/118 mL Enema
118 ml [place] DAILYPRN PRN (Reason: if no bm by 4th day)
melatonin 5 mg Tablet
5 mg PO HS PRN (Reason: Sleep) Qty: 7 0RF
Referrals:
Dominik Viera DO [Family Provider]
Activity Restrictions/Additional Instructions:
As discussed, your x-ray of the shoulder, knee, and hip shows no acute fracture or dislocation. Your CT of the head shows no acute intracranial normality. There is no evidence of fracture in the cervical spine. You can take Tylenol as needed for
pain. Please follow-up with your primary care provider as needed. Please return to the ER for any signs or symptoms concerning to you, intractable headache, chest pain, shortness of breath, weakness, confusion, etc.
Interventions
Interventions:
*General Assessment Last Done: 05/10/25 19:03
*Neglect/Abuse Screening Last Done: 05/10/25 19:03
*ED COVID-19 Vaccine History Last Done: 05/10/25 19:03
*ED Influenza Vaccine History Last Done: 05/10/25 19:03
[facility] Fall Risk Assessment Tool Last Done: 05/10/25 19:49
*Risk Screen - Suicide (C-SSRS) Last Done: 05/10/25 19:03
*Nursing Disposition Last Done: 05/10/25 22:37
ED-Musculoskeletal Assessment Last Done: 05/10/25 19:56
ED- Neurological Assessment Last Done: 05/10/25 19:50
ED-Skin Assessment Last Done: 05/10/25 19:50
Discharge Date and Time
Discharge Date/Time: 05/10/25 22:38
Print Language: FRISIAN
[2025-05-10 20:30] VITALS: BP 160/81
[2025-05-10] MEDS: TYLENOL 1000 MG PO (22:26)
[2025-05-10 22:30] VITALS: BP 160/81
== END 2025-05-10 22:38 | disposition home or self-care (01) ==
LOC: EMR 18:53
PROVIDERS: EMERGENCY PHYSICIAN Emergency Medicine; FAMILY PHYSICIAN Internal Medicine
DX: S70.02XA Contusion of left hip, initial encounter (principal); W19.XXXA Unspecified fall, initial encounter; E78.00 Pure hypercholesterolemia, unspecified; G20.A1 Parkinson's disease without dyskinesia, without mention of fluctuations; G89.29 Other chronic pain; Z90.49 Acquired absence of other specified parts of digestive tract
CPT/HCPCS: 99284; 70450; 72125; 73030; 73502; 73564